=== PATIENT | female | born 1950 | race Caucasian/White ===

== ENCOUNTER 2020-06-17 10:58 | Outpatient (REF) | payer MEDICARE, SELFPAY ==
[2020-06-17 14:23] LABS: Glucose Urine UA NEG (NEG); Leukocyte Esterase Urine 2+ (NEG); Nitrite Urine NEG (NEG); Specific Gravity - Urine 1.015 (1.005-1.025); Urine Blood 1+ (NEG); Urine Ketones NEG (NEG); Urine Protein TRACE MG/DL (NEG-TRACE)
[2020-06-17 14:30] LABS: Appearance Urine CLOUDY; Color Urine YELLOW
[2020-06-17 15:04] LABS: Bacteria Urine 3+ /LPF; Squamous Epithelial Cell Urine TRACE /LPF; WBC Urine 50-75 /HPF (0-4)
== END 2020-06-17 10:59 | disposition home or self-care (01) ==
LOC: HO.HMGCLDS 10:58
PROVIDERS: PCP Internal Medicine; Visit Provider Internal Medicine
DX: R82.90 Unspecified abnormal findings in urine (principal)
CPT/HCPCS: 81001; 87086; 87088; 87186

== ENCOUNTER 2020-09-26 09:40 | Outpatient (REF) | payer MEDICARE, SELFPAY ==
[2020-09-26 12:01] LABS: Glucose Urine UA NEG (NEG); Leukocyte Esterase Urine NEG (NEG); Nitrite Urine NEG (NEG); PH 5.5 (5.0-8.0); Urine Blood NEG (NEG); Urine Ketones NEG (NEG); Urine Protein NEG (NEG-TRACE)
[2020-09-26 12:03] LABS: Appearance Urine CLEAR; Color Urine YELLOW
== END 2020-09-26 09:41 | disposition home or self-care (01) ==
LOC: HO.HMGCLNP 09:40
PROVIDERS: Visit Provider Internal Medicine
DX: R82.90 Unspecified abnormal findings in urine (principal)
CPT/HCPCS: 81003; 87086

== ENCOUNTER 2020-10-02 08:19 | Outpatient (REF) | payer MEDICARE, SELFPAY ==
[2020-10-02 11:54] LABS: Alanine Aminotransferase 18 U/L (0-31); Albumin Level 4.4 g/dL (3.5-5.0); Alkaline Phosphatase 52 U/L (39-117); Anion Gap 12 (12-20); Aspartate Amino Transferase 23 U/L (5-31); Bilirubin Total 0.5 mg/dL (0.0-1.0); Blood Urea Nitrogen 16 mg/dL (9-16); Calcium 9.3 mg/dL (8.4-10.2); Carbon Dioxide 30 mmol/L (22-29); Chloride 106 mmol/L (96-108); Estimated Glomerular Filt Rate > 60; Glucose Fasting 87 mg/dL (60-99); Potassium 4.8 mmol/l (3.3-5.1); Sodium 143 mmol/L (135-145); Total Protein 6.7 g/dL (6.5-8.0)
[2020-10-02 12:16] LABS: Vitamin D 25-OH Total 37.7 ng/mL (>30)
== END 2020-10-02 08:20 | disposition home or self-care (01) ==
LOC: HO.HMGCLDS 08:19
PROVIDERS: PCP Internal Medicine; Visit Provider Internal Medicine
DX: E78.5 Hyperlipidemia, unspecified (principal); F32.9 Major depressive disorder, single episode, unspecified; M81.0 Age-related osteoporosis without current pathological fracture; I10 Essential (primary) hypertension
CPT/HCPCS: 36415; 80053; 82306

== ENCOUNTER 2020-10-09 08:37 | Outpatient (REF) | payer MEDICARE, SELFPAY ==
[2020-10-09 10:13] LABS: Blood Urea Nitrogen 21 mg/dL (9-16); Estimated Glomerular Filt Rate > 60
== END 2020-10-09 08:38 | disposition home or self-care (01) ==
LOC: HO.LAB 08:37
PROVIDERS: PCP Internal Medicine; Visit Provider Internal Medicine
DX: I10 Essential (primary) hypertension (principal)
CPT/HCPCS: 36415; 82565; 84520

== ENCOUNTER 2020-10-17 08:48 | Outpatient (REF) | payer MEDICARE, SELFPAY | END 2020-10-17 08:49 | disposition home or self-care (01) | LOC: HO.MDS 08:48 | PROVIDERS: PCP Internal Medicine; Visit Provider Internal Medicine | DX: M81.0 Age-related osteoporosis without current pathological fracture (principal) | CPT/HCPCS: 96365; J3489 ==

== ENCOUNTER 2021-01-24 06:35 | Outpatient (REF) | payer MEDICARE, SELFPAY ==
[2021-01-24 11:24] LABS: Hematocrit 41.7 % (37-47); Hemoglobin 13.4 g/dl (12.0-16.0); Mean Corpuscular HGB Conc 32.1 g/dl (31.0-35.0); Mean Corpuscular Volume 99.5 fL (80-98); Mean Platelet Volume 12.2 fL (9.4-12.3); Platelet Count 184 X10*3/uL (160-400); Red Blood Count 4.19 X10*6/uL (4.20-5.50); Red Cell Distribution Width 12.7 % (11.0-16.0); White Blood Count 5.7 X10*3/uL (4.8-10.8)
[2021-01-24 11:51] LABS: Alanine Aminotransferase 24 U/L (0-31); Albumin Level 4.2 g/dL (3.5-5.0); Alkaline Phosphatase 42 U/L (39-117); Anion Gap 12 (12-20); Aspartate Amino Transferase 27 U/L (5-31); Bilirubin Total 0.3 mg/dL (0.0-1.0); Blood Urea Nitrogen 16 mg/dL (9-16); Calcium 9.2 mg/dL (8.4-10.2); Carbon Dioxide 28 mmol/L (22-29); Chloride 106 mmol/L (96-108); Cholesterol 192 mg/dL; Estimated Glomerular Filt Rate > 60; Glucose Fasting 95 mg/dL (60-99); HDL Cholesterol 64 mg/dL; LDL Cholesterol Calculated 114 mg/dl; Potassium 4.7 mmol/L (3.3-5.1); Sodium 141 mmol/L (135-145); Total Protein 6.7 g/dL (6.5-8.0); Triglycerides 73 mg/dL
== END 2021-01-24 06:36 | disposition home or self-care (01) ==
LOC: HO.HMGCLDS 06:35
PROVIDERS: PCP Internal Medicine; Visit Provider Internal Medicine
DX: E78.5 Hyperlipidemia, unspecified (principal); I10 Essential (primary) hypertension; M81.0 Age-related osteoporosis without current pathological fracture
CPT/HCPCS: 36415; 80053; 80061; 85027

== ENCOUNTER 2021-06-11 08:42 | Outpatient (REF) | payer MEDICARE, SELFPAY ==
[2021-06-11 11:09] LABS: Appearance Urine CLOUDY; Color Urine YELLOW; Glucose Urine UA NEG (NEG); Leukocyte Esterase Urine 3+ (NEG); Nitrite Urine POS (NEG); Specific Gravity - Urine 1.015 (1.005-1.025); UACC Culture Trigger YES; Urine Blood 1+ (NEG); Urine Ketones NEG (NEG); Urine Protein TRACE MG/DL (NEG-TRACE)
[2021-06-11 11:24] LABS: Bacteria Urine 1+ /LPF; Squamous Epithelial Cell Urine TRACE /LPF; WBC Urine TNTC /HPF (0-4)
== END 2021-06-11 08:43 | disposition home or self-care (01) ==
LOC: HO.HMGCLDS 08:42
PROVIDERS: PCP Internal Medicine; Visit Provider Internal Medicine
DX: Z13.89 Encounter for screening for other disorder (principal)
CPT/HCPCS: 81001; 87086; 87088; 87186

== ENCOUNTER 2021-06-13 06:47 | Outpatient (REF) | payer MEDICARE, SELFPAY ==
[2021-06-13 11:24] LABS: Alanine Aminotransferase 24 U/L (0-31); Albumin Level 4.5 g/dL (3.5-5.0); Alkaline Phosphatase 46 U/L (39-117); Anion Gap 11 (12-20); Aspartate Amino Transferase 23 U/L (5-31); Bilirubin Total 0.4 mg/dL (0.0-1.0); Blood Urea Nitrogen 13 mg/dL (9-16); Calcium 9.5 mg/dL (8.4-10.2); Carbon Dioxide 29 mmol/L (22-29); Chloride 103 mmol/L (96-108); Cholesterol 179 mg/dL; Estimated Glomerular Filt Rate > 60; Glucose Fasting 101 mg/dL (60-99); HDL Cholesterol 60 mg/dL; LDL Cholesterol Calculated 102 mg/dl; Potassium 4.7 mmol/L (3.3-5.1); Sodium 138 mmol/L (135-145); Triglycerides 89 mg/dL
[2021-06-13 11:46] LABS: Vitamin D 25-OH Total 40.9 ng/mL (>30)
== END 2021-06-13 06:48 | disposition home or self-care (01) ==
LOC: HO.HMGCLDS 06:47
PROVIDERS: PCP Internal Medicine; Visit Provider Internal Medicine
DX: E78.5 Hyperlipidemia, unspecified (principal); M81.0 Age-related osteoporosis without current pathological fracture; I10 Essential (primary) hypertension; E55.9 Vitamin D deficiency, unspecified
CPT/HCPCS: 36415; 80053; 80061; 82306

== ENCOUNTER 2021-10-07 07:58 | Outpatient (REF) | payer MEDICARE, SELFPAY ==
--- NOTE | ~2021-10-07 | MM_ITS ---
EXAMINATION: BONE DENSITOMETRY CLINICAL INDICATION: Osteoporosis. COMPARISON: Baseline BD dated 10/05/2019. TECHNIQUE: Using a [employer] DXA System (software version: 13.1) manufactured by [employer], dual-energy x-ray absorptiometry was performed of the left hip and left forearm radius 33%. The images are of good technical quality. Summary results are attached. FINDINGS: LEFT FEMUR, NECK: Current: BMD 0.663 g/cm2, Z-score -1.0, T-score -2.7, osteoporosis. Baseline: BMD 0.537 g/cm2. LEFT FEMUR, TOTAL: Current: BMD 0.692 g/cm2, Z-score -1.0, T-score -2.5, osteoporosis, 27.2% increase from baseline (<5% change is not significant). Baseline: BMD 0.544 g/cm2. LEFT FOREARM RADIUS 33%: BMD 0.745 g/cm2, Z-score 0.5, T-score -1.5, osteopenia, 20.6% increase from baseline (<5% change is not significant). Baseline: BMD 0.618 g/cm2. IDENTIFIED RISK FACTORS: Menopause, height loss, hysterectomy, bilateral oophorectomy, anticonvulsant, osteoporosis. HISTORY OF FRACTURE: None listed. MEDICATIONS: Calcium, vitamin D. MM/XR DEXA axial skeleton IMPRESSION: 1. DIAGNOSIS: Osteoporosis based on the lowest T-score value of -2.7 in the femoral neck applying World Health Organization criteria. 2. 10-YEAR FRACTURE RISK PREDICTION, FRAX: According to the guidelines, FRAX calculation should only be performed on patients in the osteopenia bone density category. Therefore, FRAX was not performed on this patient. 3. Treatment Recommendations: NOF guidelines recommend consideration for treatment in postmenopausal women and men age 50 and older presenting with the following: -A hip or vertebral (clinical or morphometric) fracture. -T-score less than or equal to -2.5 at the femoral neck or spine after appropriate evaluation to exclude secondary causes. -Low bone mass at the hip or spine and a 10-year fracture probability by FRAX of greater than or equal to 3% for hip fracture or greater than or equal to 20% for major osteoporotic fracture based on the [place] adapted WHO algorithm. 4. Other Recommendations: All treatment decisions require clinical judgment and consideration of individual patient factors, including patient preferences, comorbidities, previous drug use, risk factors not captured in the FRAX model (e.g. frailty, falls, vitamin D deficiency, increased bone turnover, interval significant decline in bone density) and possible under or overestimation of fracture risk by FRAX. Additional medical evaluation for secondary cause of low bone mineral density may be appropriate. FUTURE SCAN RECOMMENDATION: People with diagnosed cases of osteoporosis or at high risk for fracture should have regular bone mineral density tests. For patients eligible for Medicare, routine testing is allowed once every 2 years. The testing frequency can be increased to one year for patients who have rapidly progressing disease, those who are receiving or discontinuing medical therapy to restore bone mass, or have additional risk factors.
== END 2021-10-07 07:59 | disposition home or self-care (01) ==
LOC: HO.MAMMO 07:58
PROVIDERS: PCP Internal Medicine; Visit Provider Internal Medicine
DX: M81.0 Age-related osteoporosis without current pathological fracture (principal); E78.5 Hyperlipidemia, unspecified; I10 Essential (primary) hypertension
CPT/HCPCS: 77080

== ENCOUNTER 2021-11-05 06:19 | Outpatient (REF) | payer MEDICARE, SELFPAY ==
[2021-11-05 11:22] LABS: Hematocrit 39.8 % (37.0-47.0); Hemoglobin 12.8 g/dl (12.0-16.0); Mean Corpuscular HGB Conc 32.2 g/dl (31.0-35.0); Mean Corpuscular Hemoglobin 33.1 pg (27.0-33.0); Mean Corpuscular Volume 102.8 fL (80.0-98.0); Platelet Count 176 X10*3/uL (160-400); Red Blood Count 3.87 X10*6/uL (4.20-5.50); Red Cell Distribution Width 12.4 % (11.0-16.0); White Blood Count 5.3 X10*3/uL (4.8-10.8)
[2021-11-05 11:40] LABS: Alanine Aminotransferase 28 U/L (0-31); Albumin Level 4.1 g/dL (3.5-5.0); Alkaline Phosphatase 39 U/L (39-117); Anion Gap 11 (12-20); Aspartate Amino Transferase 25 U/L (5-31); Bilirubin Total 0.6 mg/dL (0.0-1.0); Blood Urea Nitrogen 11 mg/dL (9-16); Calcium 9.2 mg/dL (8.4-10.2); Carbon Dioxide 28 mmol/L (22-29); Chloride 107 mmol/L (96-108); Cholesterol 189 mg/dL; Estimated Glomerular Filt Rate > 60; Glucose Fasting 102 mg/dL (60-99); HDL Cholesterol 71 mg/dL; LDL Cholesterol Calculated 105 mg/dl; Potassium 4.6 mmol/L (3.3-5.1); Sodium 141 mmol/L (135-145); Total Protein 6.4 g/dL (6.5-8.0); Triglycerides 66 mg/dL
[2021-11-05 11:48] LABS: Vitamin D 25-OH Total 34.5 ng/mL (>30)
== END 2021-11-05 06:20 | disposition home or self-care (01) ==
LOC: HO.HMGCLDS 06:19
PROVIDERS: Visit Provider Internal Medicine
DX: Z00.00 Encounter for general adult medical examination without abnormal findings (principal); M81.0 Age-related osteoporosis without current pathological fracture; E78.5 Hyperlipidemia, unspecified; I10 Essential (primary) hypertension
CPT/HCPCS: 36415; 80053; 80061; 82306; 85027

== ENCOUNTER 2021-11-20 07:40 | Outpatient (REF) | payer MEDICARE, SELFPAY ==
[2021-11-20 11:46] LABS: Blood Urea Nitrogen 12 mg/dL (9-16); Estimated Glomerular Filt Rate > 60
== END 2021-11-20 07:41 | disposition home or self-care (01) ==
LOC: HO.HMGCLDS 07:40
PROVIDERS: Visit Provider Internal Medicine
DX: M81.0 Age-related osteoporosis without current pathological fracture (principal)
CPT/HCPCS: 36415; 82565; 84520

== ENCOUNTER 2021-11-23 08:54 | Outpatient (REF) | payer MEDICARE, SELFPAY | END 2021-11-23 08:55 | disposition home or self-care (01) | LOC: HO.MDS 08:54 | PROVIDERS: PCP Internal Medicine; Visit Provider Internal Medicine | DX: M81.0 Age-related osteoporosis without current pathological fracture (principal) | CPT/HCPCS: 96365; J3489 ==

== ENCOUNTER 2022-04-10 06:34 | Outpatient (REF) | payer MEDICARE, SELFPAY ==
[2022-04-10 11:13] LABS: Hematocrit 39.9 % (37.0-47.0); Hemoglobin 13.2 g/dl (12.0-16.0); Mean Corpuscular HGB Conc 33.1 g/dl (31.0-35.0); Mean Corpuscular Hemoglobin 32.7 pg (27.0-33.0); Mean Corpuscular Volume 98.8 fL (80.0-98.0); Mean Platelet Volume 11.9 fL (9.4-12.3); Platelet Count 216 X10*3/uL (160-400); Red Blood Count 4.04 X10*6/uL (4.20-5.50); Red Cell Distribution Width 12.2 % (11.0-16.0); White Blood Count 5.2 X10*3/uL (4.8-10.8)
[2022-04-10 11:15] LABS: Appearance Urine CLEAR; Color Urine YELLOW; Glucose Urine UA NEG (NEG); Leukocyte Esterase Urine NEG (NEG); Nitrite Urine NEG (NEG); PH 6.5 (5.0-8.0); Specific Gravity - Urine <= 1.005 (1.005-1.025); Urine Blood NEG (NEG); Urine Ketones NEG (NEG); Urine Protein NEG (NEG-TRACE)
[2022-04-10 11:23] LABS: Alanine Aminotransferase 24 U/L (0-31); Albumin Level 4.3 g/dL (3.5-5.0); Alkaline Phosphatase 34 U/L (39-117); Anion Gap 12 (12-20); Aspartate Amino Transferase 25 U/L (5-31); Bilirubin Total 0.4 mg/dL (0.0-1.0); Blood Urea Nitrogen 13 mg/dL (9-16); Calcium 9.2 mg/dL (8.4-10.2); Carbon Dioxide 29 mmol/L (22-29); Chloride 100 mmol/L (96-108); Cholesterol 192 mg/dL; Estimated Glomerular Filt Rate > 60; Glucose Fasting 97 mg/dL (60-99); HDL Cholesterol 69 mg/dL; LDL Cholesterol Calculated 113 mg/dl; Potassium 4.6 mmol/L (3.3-5.1); Sodium 136 mmol/L (135-145); Total Protein 6.7 g/dL (6.5-8.0); Triglycerides 54 mg/dL
[2022-04-10 11:42] LABS: RBC Urine 0 /HPF (0); Squamous Epithelial Cell Urine 2+ /LPF; WBC Urine 0-2 /HPF (0-4)
[2022-04-10 11:46] LABS: TSH reflex Free T4 0.69 uIU/mL (0.32-4.0); Vitamin D 25-OH Total 45.4 ng/mL (>30)
[2022-04-12 07:40] LABS: Folate 18.3 ng/mL (> or = 4.0); Vitamin B12 1676 pg/mL (200-900)
== END 2022-04-10 06:35 | disposition home or self-care (01) ==
LOC: HO.HMGCLDS 06:34
PROVIDERS: PCP Internal Medicine; Visit Provider Internal Medicine
DX: Z00.00 Encounter for general adult medical examination without abnormal findings (principal); E78.5 Hyperlipidemia, unspecified; I10 Essential (primary) hypertension; M81.0 Age-related osteoporosis without current pathological fracture; E55.9 Vitamin D deficiency, unspecified
CPT/HCPCS: 36415; 80053; 80061; 81001; 82306; 82607; 82746; 84443; 85027

== ENCOUNTER 2022-08-09 08:02 | Outpatient (REF) | payer MEDICARE, SELFPAY ==
[2022-08-09 11:47] LABS: Anion Gap 13 (12-20); Blood Urea Nitrogen 16 mg/dL (9-16); Calcium 9.3 mg/dL (8.4-10.2); Carbon Dioxide 28 mmol/L (22-29); Chloride 103 mmol/L (96-108); Estimated Glomerular Filt Rate > 60; Glucose Random 88 mg/dL (60-115); Potassium 4.6 mmol/L (3.3-5.1); Sodium 139 mmol/L (135-145)
== END 2022-08-09 08:03 | disposition home or self-care (01) ==
LOC: HO.HMGCLDS 08:02
PROVIDERS: PCP Internal Medicine; Visit Provider Internal Medicine
DX: I10 Essential (primary) hypertension (principal)
CPT/HCPCS: 36415; 80048

== ENCOUNTER 2022-08-27 08:03 | Outpatient (REF) | payer MEDICARE, SELFPAY ==
[2022-08-27 11:38] LABS: Anion Gap 13 (12-20); Blood Urea Nitrogen 20 mg/dL (9-16); Calcium 9.7 mg/dL (8.4-10.2); Carbon Dioxide 29 mmol/L (22-29); Chloride 104 mmol/L (96-108); Estimated Glomerular Filt Rate > 60; Glucose Random 86 mg/dL (60-115); Potassium 4.8 mmol/L (3.3-5.1); Sodium 141 mmol/L (135-145)
[2022-08-27 12:16] LABS: Folate 17.4 ng/mL (> or = 4.0); Vitamin B12 1939 pg/mL (200-900)
== END 2022-08-27 08:04 | disposition home or self-care (01) ==
LOC: HO.HMGCLDS 08:03
PROVIDERS: PCP Internal Medicine; Visit Provider Internal Medicine
DX: I10 Essential (primary) hypertension (principal)
CPT/HCPCS: 36415; 80048; 82607; 82746

== ENCOUNTER 2022-10-15 06:35 | Outpatient (REF) | payer MEDICARE, SELFPAY ==
[2022-10-15 12:09] LABS: Anion Gap 15 (12-20); Blood Urea Nitrogen 12 mg/dL (9-16); Calcium 9.3 mg/dL (8.4-10.2); Carbon Dioxide 27 mmol/L (22-29); Chloride 104 mmol/L (96-108); Estimated Glomerular Filt Rate > 60; Glucose Random 105 mg/dL (60-115); Potassium 4.6 mmol/L (3.3-5.1); Sodium 141 mmol/L (135-145)
== END 2022-10-15 06:36 | disposition home or self-care (01) ==
LOC: HO.HMGCLDS 06:35
PROVIDERS: PCP Internal Medicine; Visit Provider Internal Medicine
DX: I10 Essential (primary) hypertension (principal)
CPT/HCPCS: 36415; 80048

== ENCOUNTER 2022-11-12 08:01 | Outpatient (REF) | payer MEDICARE, SELFPAY ==
[2022-11-12 12:20] LABS: Blood Urea Nitrogen 18 mg/dL (9-16); Calcium 9.8 mg/dL (8.4-10.2); Estimated Glomerular Filt Rate > 60
[2022-11-12 12:40] LABS: Vitamin D 25-OH Total 38.9 ng/mL (>30)
== END 2022-11-12 08:02 | disposition home or self-care (01) ==
LOC: HO.HMGCLDS 08:01
PROVIDERS: PCP Internal Medicine; Visit Provider Internal Medicine
DX: M81.0 Age-related osteoporosis without current pathological fracture (principal)
CPT/HCPCS: 36415; 82306; 82310; 82565; 84520

== ENCOUNTER 2022-11-18 08:24 | Outpatient (REF) | payer MEDICARE, SELFPAY | END 2022-11-18 08:25 | disposition home or self-care (01) | LOC: HO.MDS 08:24 | PROVIDERS: Visit Provider Internal Medicine | DX: M81.0 Age-related osteoporosis without current pathological fracture (principal) | CPT/HCPCS: 96365; J3489 ==

== ENCOUNTER 2023-01-21 07:48 | Outpatient (REF) | payer MEDICARE, SELFPAY ==
[2023-01-21 12:17] LABS: Anion Gap 10 (12-20); Blood Urea Nitrogen 16 mg/dL (9-16); Calcium 9.5 mg/dL (8.4-10.2); Carbon Dioxide 30 mmol/L (22-29); Chloride 106 mmol/L (96-108); Estimated Glomerular Filt Rate > 60; Glucose Random 98 mg/dL (60-115); Potassium 4.8 mmol/L (3.3-5.1); Sodium 141 mmol/L (135-145)
== END 2023-01-21 07:49 | disposition home or self-care (01) ==
LOC: HO.HMGCLDS 07:48
PROVIDERS: PCP Internal Medicine; Visit Provider Internal Medicine
DX: I10 Essential (primary) hypertension (principal)
CPT/HCPCS: 36415; 80048

== ENCOUNTER 2023-02-03 12:58 | Outpatient (REF) | payer MEDICARE, SELFPAY ==
--- NOTE | ~2023-02-03 | XR_ITS ---
EXAMINATION: XR FINGER, RIGHT CLINICAL INFORMATION: Finger pain. COMPARISON: None available. TECHNIQUE: The views of the right hand digits were obtained. FINDINGS: Severe second distal interphalangeal degenerative joint changes are seen with hypertrophic changes and adjacent calcifications. Mild interphalangeal degenerative joint changes are seen in the remainder of the digits most pronounced in the distal interphalangeal joints of the fourth and fifth digits. There is no acute fracture or dislocation. Mild soft tissue swelling is seen in the second digit. XR/XR finger RT min 2V IMPRESSION: Degenerative joint changes most consistent with osteoarthritis, most pronounced in the second digit as detailed above. No definitive acute abnormality.
--- NOTE | ~2023-02-03 | XR_ITS ---
EXAMINATION: XR WRIST, RIGHT CLINICAL INFORMATION: Right wrist pain. COMPARISON: None available. TECHNIQUE: PA, lateral, and oblique views of the right wrist. An indicator arrow points to the lateral wrist. FINDINGS: Severe right first carpometacarpal degenerative joint changes are seen. The trapezium is not visualized. Erosive changes are seen along the proximal articular surface of the first metacarpal. Concave erosive changes are seen along the distal margin of the scaphoid and proximal, radial margin of the second metacarpal. The carpal bones are otherwise normally aligned. The distal radius and ulna are intact. XR/XR wrist RT min 3V IMPRESSION: Severe right lateral wrist degenerative joint changes. Erosive changes are nonspecific, but can be seen with erosive osteoarthritis and gout. Correlate with patient history.
== END 2023-02-03 12:59 | disposition home or self-care (01) ==
LOC: HO.HMGCX 12:58
PROVIDERS: PCP Internal Medicine; Visit Provider Nurse Practitioner Family
DX: M79.89 Other specified soft tissue disorders (principal); M79.644 Pain in right finger(s); M25.531 Pain in right wrist
CPT/HCPCS: 73110; 73140

== ENCOUNTER → 2023-02-08 08:51 | Outpatient (BNVA) | payer MEDICARE, SELFPAY | PROVIDERS: PCP Internal Medicine; Visit Provider Orthopaedic Surgery | DX: M18.11 Unilateral primary osteoarthritis of first carpometacarpal joint, right hand (principal); M79.89 Other specified soft tissue disorders | CPT/HCPCS: 99202 ==

== ENCOUNTER 2023-04-28 08:14 | Outpatient (AMB) | payer MEDICARE, SELFPAY ==
[2023-04-28 08:18] VITALS: BP 124/74; PULSE 56; O2SAT 95; BMI 24.8
--- NOTE | 2023-04-28 08:18 | MHC.PC.OV ---
Vital Signs 04/28/23 08:18 Height 5 ft 5 in Weight 149 lb BMI 24.8 BP 124/74 Blood Pressure Location Lt brachial Position Sitting Pulse 56 Pulse Source Pulse Oximeter Pulse Oximetry (%) 95 Oxygen Delivery Method Room Air Intake Visit Reasons: 6 Month follow up HTN Intake Note: Pt is here today for 6 months follow up visit on HTN. Allergies amitriptyline Allergy (Unknown, Verified 04/28/23 08:21) increased heart rate, SOB budesonide [Rhinocort Allergy] Allergy (Unknown, Verified 04/28/23 08:21) swelling redness of the nose fentanyl Allergy (Unknown, Verified 04/28/23 08:21) itchy imipramine [From Tofranil] Allergy (Unknown, Verified 04/28/23 08:21) Hives oxycodone Allergy (Unknown, Verified 04/28/23 08:21) itchy tapentadol Allergy (Unknown, Verified 04/28/23 08:21) Unknown hydrochlorothiazide Adverse Reaction (Intermediate, Verified 04/28/23 08:21) Confusion alendronate sodium [Fosamax] Adverse Reaction (Unknown, Verified 04/28/23 08:21) Abdominal Pain duloxetine Adverse Reaction (Unknown, Verified 04/28/23 08:21) insomnia and hedache pregabalin Adverse Reaction (Unknown, Verified 04/28/23 08:21) waking tramadol [Ultram] Adverse Reaction (Unknown, Verified 04/28/23 08:21) auforia feeling amlodipine Adverse Reaction (Verified 04/28/23 08:21) tiredness and back pain Tobacco use date assessed: 12/20/22 Fall risk assessment: No Falls in past year Last assessed Fall Risk: 04/28/23 Dental Screening Dental Screen Date: 04/28/23 Did you have a dental visit in the last 12 months?: Yes Did you have a dental problem in the last 6 months where you did not have access to dental care?: No Was dental information given to patient?: Patient has dentist HPI 6 Month follow up HTN HPI Details Pt presents for f/u HTN, hyperlipid, stable on meds. Patient had 3 Reclast infusions for osteoporosis the most recent in November 2021. Patient has been taking vitamin-D 3 supplement and is due for repeat DEXA next October. She follows up with a hand surgeon at time for persistent right thumb pain and swelling. [facility] Medical History (Updated 04/28/23 @ 08:53 by Alison Christianson MD) Age related osteoporosis Annual physical exam Broken heart syndrome Cloudy urine Depression HTN (hypertension) Hyperlipidemia Multinodular goiter Osteopenia Vitamin D deficiency Surgical History H/O lumbosacral spine surgery No pertinent past surgical history S/P MARICARMEN (total abdominal hysterectomy) Family History Father HTN (hypertension) Mother No problems noted. Social History Housing: Apartment Alcohol intake: never Patient Tobacco Use Status: Former Tobacco user e-Cigarette/Vaping Use: Never Used Current occupational status: retired and disabled Cognitive needs: No Hearing needs: No Vision needs: Yes Questionnaire Thrive Questionnaire Date Thrive assessed: 09/17/22 AUDIT C Alcohol Use Questionnaire (AUDIT-C) 1. How often do you have a drink containing alcohol?: Never 3. How often do you have six or more drinks on one occasion?: Never Total Score: 0 MAEVE-7 AMB Questionnaire MAEVE-7 Date MAEVE - 7 assessed: 09/17/22 Source: Developed by Drs. Krish Garcia, Aysha Werner, Carlos Broussard and colleagues, with an educational cory from [employer]. Review of Systems Const All systems reviewed & are unremarkable except as noted in HPI and below Reports no additional complaints Eyes Reports no additional complaints ENT Reports no additional complaints Card Reports no additional complaints Resp Reports no additional complaints GI Reports no additional complaints Physical exam (Primary Care) Vital Signs: Last Vital Signs Pulse 56 04/28/23 08:18 BP 124/74 04/28/23 08:18 Pulse Ox 95 04/28/23 08:18 Oxygen Delivery Method Room Air 04/28/23 08:18 BMI result Body Mass Index 24.8 Tobacco/Smoking Status: Tobacco use Status Tobacco use date assessed 12/20/22 04/28/23 08:19 Patient Tobacco Use Status Former Tobacco user 04/28/23 08:19 e-Cigarette/Vaping Use Never Used 04/28/23 08:19 Thrive Assessment: Date of Thrive Assessment Date Thrive assessed 09/17/22 04/28/23 08:19 Const General: no acute distress Neck Neck: Yes supple Resp Effort & Inspection: normal respiratory effort Auscultation: clear to auscultation bilaterally Cardio Rhythm: regular rhythm Heart sounds: S1 normal heart sound present and S2 normal heart sound present Assessment and Plan Assessment & Plan (1) Age related osteoporosis: Comment: DEXA osteporosis 09/2019, s/p 2 RECLAST infusions 09/2019, 09/2020, DEXA 20 % improvement , 3rd infusion 11/2021, due for DEXA in 10/29 Code(s): M81.0 - Age-related osteoporosis without current pathological fracture Plan: Continue vitamin D supplement (2) Vitamin D deficiency: Code(s): E55.9 - Vitamin D deficiency, unspecified (3) HTN (hypertension): Comment: Patient follows up with [facility] Cardiology Code(s): I10 - Essential (primary) hypertension Plan: Continue current medications (4) Hyperlipidemia: Code(s): E78.5 - Hyperlipidemia, unspecified Plan: Continue statin, return in 6 months for physical and follow-up Orders: Orders XR DEXA axial skeleton 6 Months M81.0 - Age-related osteoporosis without current pathological fracture Comprehensive [place]. Panel Fast Today E55.9 - Vitamin D deficiency, unspecified, E78.5 - Hyperlipidemia, unspecified, I10 - Essential (primary) hypertension, M81.0 - Age-related osteoporosis without current pathological fracture Lipid Panel Today E55.9 - Vitamin D deficiency, unspecified, E78.5 - Hyperlipidemia, unspecified, I10 - Essential (primary) hypertension, M81.0 - Age-related osteoporosis without current pathological fracture TSH reflex Free T4 Today E55.9 - Vitamin D deficiency, unspecified, E78.5 - Hyperlipidemia, unspecified, I10 - Essential (primary) hypertension, M81.0 - Age-related osteoporosis without current pathological fracture Vitamin D 25-OH Total Today E55.9 - Vitamin D deficiency, unspecified, E78.5 - Hyperlipidemia, unspecified, I10 - Essential (primary) hypertension, M81.0 - Age-related osteoporosis without current pathological fracture Complete Blood Count Auto Diff Today E55.9 - Vitamin D deficiency, unspecified, E78.5 - Hyperlipidemia, unspecified, I10 - Essential (primary) hypertension, M81.0 - Age-related osteoporosis without current pathological fracture Coding Level of Care Code Est Pt Level 4 (34372) Diagnoses Age related osteoporosis M81.0 Vitamin D deficiency E55.9 HTN (hypertension) I10 Hyperlipidemia E78.5
== END 2023-04-28 08:57 | disposition home or self-care (01) ==
PROVIDERS: Visit Provider Internal Medicine
DX: M81.0 Age-related osteoporosis without current pathological fracture (principal); E55.9 Vitamin D deficiency, unspecified; I10 Essential (primary) hypertension; E78.5 Hyperlipidemia, unspecified
CPT/HCPCS: 99214

== ENCOUNTER 2023-04-29 06:10 | Outpatient (REF) | payer MEDICARE, SELFPAY ==
[2023-04-29 11:07] LABS: MANUAL DIFF FLAG NO
[2023-04-29 11:29] LABS: Basophils Percent Auto 0.3 % (0-2); Eosinophils Absolute Auto 0.1 X10*3/uL (0.0-0.4); Eosinophils Percent Auto 1.2 % (0-4); Hematocrit 41.8 % (37.0-47.0); Hemoglobin 13.5 g/dl (12.0-16.0); Imm Gran Abs Auto 0.01 X10*3/uL (0.00-0.03); Imm Gran Pct Auto 0.2 % (0.0-0.4); Lymphocytes Absolute Auto 2.7 X10*3/uL (1.2-4.9); Lymphocytes Percent Auto 47.3 % (20-40); Mean Corpuscular HGB Conc 32.3 g/dl (31.0-35.0); Mean Corpuscular Hemoglobin 31.9 pg (27.0-33.0); Mean Corpuscular Volume 98.8 fL (80.0-98.0); Mean Platelet Volume 11.4 fL (9.4-12.3); Monocytes Absolute Auto 0.5 X10*3/uL (0.1-1.2); Monocytes Percent Auto 7.9 % (2-11); Neutrophils Absolute Auto 2.5 x10*3/uL (2.0-8.3); Neutrophils Percent Auto 43.1 % (45-73); Platelet Count 221 X10*3/uL (160-400); Red Blood Count 4.23 X10*6/uL (4.20-5.50); White Blood Count 5.8 X10*3/uL (4.8-10.8)
[2023-04-29 12:47] LABS: Alanine Aminotransferase 20 U/L (0-31); Albumin Level 4.6 g/dL (3.5-5.0); Alkaline Phosphatase 39 U/L (39-117); Anion Gap 13 (12-20); Aspartate Amino Transferase 27 U/L (5-31); Bilirubin Total 0.6 mg/dL (0.0-1.0); Blood Urea Nitrogen 20 mg/dL (9-16); Calcium 9.7 mg/dL (8.4-10.2); Carbon Dioxide 26 mmol/L (22-29); Chloride 106 mmol/L (96-108); Cholesterol 203 mg/dL (<200); Estimated Glomerular Filt Rate > 60; Glucose Fasting 104 mg/dL (60-99); HDL Cholesterol 76 mg/dL (>40); LDL Cholesterol Calculated 111 mg/dL (<100); Potassium 4.4 mmol/L (3.3-5.1); Sodium 141 mmol/L (135-145); Total Protein 7.5 g/dL (6.5-8.0); Triglycerides 84 mg/dL (<150)
[2023-04-29 13:05] LABS: TSH reflex Free T4 1.74 uIU/mL (0.32-4.0); Vitamin D 25-OH Total 63.9 ng/mL (>30)
== END 2023-04-29 06:11 | disposition home or self-care (01) ==
LOC: HO.HMGCLDS 06:10
PROVIDERS: PCP Internal Medicine; Visit Provider Internal Medicine
DX: E55.9 Vitamin D deficiency, unspecified (principal); I10 Essential (primary) hypertension; M81.0 Age-related osteoporosis without current pathological fracture; E78.5 Hyperlipidemia, unspecified
CPT/HCPCS: 36415; 80053; 80061; 82306; 84443; 85025

== ENCOUNTER 2023-06-16 09:15 | Outpatient (AMB) | payer MEDICARE, SELFPAY ==
[2023-06-16 09:18] VITALS: BP 128/74; PULSE 59; O2SAT 98; BMI 24.3
--- NOTE | 2023-06-16 09:18 | A.OFFPC_ITS ---
Vital Signs 06/16/23 09:18 Height 5 ft 5 in Weight 146 lb BMI 24.3 BP 128/74 Blood Pressure Location Lt brachial Position Sitting Pulse 59 Pulse Source Pulse Oximeter Pulse Oximetry (%) 98 Oxygen Delivery Method Room Air Intake Visit Reasons: pre op surgery on 06/28/23 Intake Note: Pt is here today for a pre op visit. Pt is having surgery for open decompression and fusion on 06/28/23. Allergies amitriptyline Allergy (Unknown, Verified 06/16/23 09:21) increased heart rate, SOB budesonide [Rhinocort Allergy] Allergy (Unknown, Verified 06/16/23 09:21) swelling redness of the nose fentanyl Allergy (Unknown, Verified 06/16/23 09:21) itchy imipramine [From Tofranil] Allergy (Unknown, Verified 06/16/23 09:21) Hives oxycodone Allergy (Unknown, Verified 06/16/23 09:21) itchy tapentadol Allergy (Unknown, Verified 06/16/23 09:21) Unknown hydrochlorothiazide Adverse Reaction (Intermediate, Verified 06/16/23 09:21) Confusion alendronate sodium [Fosamax] Adverse Reaction (Unknown, Verified 06/16/23 09:21) Abdominal Pain duloxetine Adverse Reaction (Unknown, Verified 06/16/23 09:21) insomnia and hedache pregabalin Adverse Reaction (Unknown, Verified 06/16/23 09:21) waking tramadol [Ultram] Adverse Reaction (Unknown, Verified 06/16/23 09:21) auforia feeling amlodipine Adverse Reaction (Verified 06/16/23 09:21) tiredness and back pain Medication List - Last Reconciled 06/16/23 by Alison Christianson MD aspirin 81 mg PO DAILY hydralazine 10 mg PO BID lisinopril 40 mg PO DAILY metoprolol succinate ER 50 mg PO BID simvastatin 40 mg PO BEDTIME trospium 20 mg PO DAILY venlafaxine ER 75 mg PO DAILY zoledronic [id number] 5 mg/100 mL (Reclast) 1 ea IV ONCE Tobacco use date assessed: 06/16/23 Fall risk assessment: No Falls in past year Last assessed Fall Risk: 06/16/23 Dental Screening Dental Screen Date: 06/16/23 Did you have a dental visit in the last 12 months?: Yes Did you have a dental problem in the last 6 months where you did not have access to dental care?: No Was dental information given to patient?: Patient has dentist HPI pre op surgery on 06/28/23 HPI Details Pt presents for pre op for L spine surgery. HTN and hyperlipid, are stable on meds. PFSH Medical History Age related osteoporosis Vitamin D deficiency Annual physical exam HTN (hypertension) Multinodular goiter Hyperlipidemia Osteopenia Broken heart syndrome Depression Cloudy urine Surgical History H/O lumbosacral spine surgery S/P MARICARMEN (total abdominal hysterectomy) No pertinent past surgical history Family History Father HTN (hypertension) Mother No problems noted. Social History Housing: Apartment Alcohol intake: never Patient Tobacco Use Status: Former Tobacco user e-Cigarette/Vaping Use: Never Used Current occupational status: retired and disabled Cognitive needs: No Hearing needs: No Vision needs: Yes Questionnaire Thrive Questionnaire Date Thrive assessed: 09/17/22 MAEVE-7 AMB Questionnaire MAEVE-7 Date MAEVE - 7 assessed: 09/17/22 Source: Developed by Drs. Krish Garcia, Aysha Werner, Carlos Broussard and colleagues, with an educational cory from [employer]. Review of Systems Const All systems reviewed & are unremarkable except as noted in HPI and below Reports no additional complaints Eyes Reports no additional complaints ENT Reports no additional complaints Card Reports no additional complaints Resp Reports no additional complaints GI Reports no additional complaints Reports no additional complaints Physical exam (Primary Care) Vital Signs: Last Vital Signs Pulse 59 06/16/23 09:18 BP 128/74 06/16/23 09:18 Pulse Ox 98 06/16/23 09:18 Oxygen Delivery Method Room Air 06/16/23 09:18 BMI result Body Mass Index 24.3 Tobacco/Smoking Status: Tobacco use Status Tobacco use date assessed 06/16/23 06/16/23 09:28 Patient Tobacco Use Status Former Tobacco user 06/16/23 09:28 e-Cigarette/Vaping Use Never Used 06/16/23 09:28 Thrive Assessment: Date of Thrive Assessment Date Thrive assessed 09/17/22 06/16/23 09:28 Const General: no acute distress HENMT Head: Yes normal to inspection General nose exam: Normal external nose present Mouth: Normal oral and palatal mucosa present Throat: Yes posterior oropharynx normal Eyes General: appearance normal, both eyes and all related structures Neck Neck: Yes no lymphadenopathy and Yes supple Resp Effort & Inspection: normal respiratory effort Auscultation: clear to auscultation bilaterally Cardio Rhythm: regular rhythm Heart sounds: S1 normal heart sound present and S2 normal heart sound present GI Inspection: Yes normal to inspection Palpation (GI): Soft to palpation Auscultation: normal bowel sounds Assessment and Plan Assessment & Plan (1) Hyperlipidemia: Code(s): E78.5 - Hyperlipidemia, unspecified Plan: cont statin (2) HTN (hypertension): Comment: Patient follows up with [facility] Cardiology Code(s): I10 - Essential (primary) hypertension Plan: cont meds (3) Annual physical exam: Code(s): Z00.00 - Encounter for general adult medical examination without abnormal findings (4) DJD (degenerative joint disease), lumbar: Code(s): M47.816 - Spondylosis without myelopathy or radiculopathy, lumbar region Plan: EKG showed NSR, rupesh, no ST-T changes, Pt will have labs today. Patient is medically cleared for surgery Orders: Orders Complete Blood Count Auto Diff Today E78.5 - Hyperlipidemia, unspecified, I10 - Essential (primary) hypertension, Z00.00 - Encounter for general adult medical examination without abnormal findings Prothrombin Time INR Today E78.5 - Hyperlipidemia, unspecified, I10 - Essential (primary) hypertension, Z00.00 - Encounter for general adult medical examination without abnormal findings Partial Thromboplastin Time Today E78.5 - Hyperlipidemia, unspecified, I10 - Essential (primary) hypertension, Z00.00 - Encounter for general adult medical examination without abnormal findings Basic Metabolic Panel Today E78.5 - Hyperlipidemia, unspecified, I10 - Essential (primary) hypertension, Z00.00 - Encounter for general adult medical examination without abnormal findings UA w Microscopic Today E78.5 - Hyperlipidemia, unspecified, I10 - Essential (primary) hypertension, Z00.00 - Encounter for general adult medical examination without abnormal findings Coding Level of Care Code Est Pt Level 4 (45181) Diagnoses Hyperlipidemia E78.5 HTN (hypertension) I10 Annual physical exam Z00.00 DJD (degenerative joint disease), lumbar M47.816
== END 2023-06-16 10:02 | disposition home or self-care (01) ==
PROVIDERS: PCP Internal Medicine; Visit Provider Internal Medicine
DX: E78.5 Hyperlipidemia, unspecified (principal); I10 Essential (primary) hypertension; Z00.00 Encounter for general adult medical examination without abnormal findings; M47.816 Spondylosis without myelopathy or radiculopathy, lumbar region
CPT/HCPCS: 99214

== ENCOUNTER 2023-06-16 09:57 | Outpatient (REF) | payer MEDICARE, SELFPAY ==
[2023-06-16 13:13] LABS: Appearance Urine Clear; Color Urine Yellow; Glucose Urine UA Negative (Negative); Leukocyte Esterase Urine Negative (Negative); Nitrite Urine Negative (Negative); Urine Blood Negative (Negative); Urine Ketones Negative (Negative); Urine Protein Negative (Neg-Trace)
[2023-06-16 13:19] LABS: Bacteria Urine None Seen (None Seen); Hyaline Casts Urine 0-2 /LPF (0-2); RBC Urine 0-2 /HPF (0-2); Squamous Epithelial Cell Urine 0-2 /HPF (0-2); WBC Urine 0-5 /HPF (0-5)
[2023-06-16 13:24] LABS: MANUAL DIFF FLAG NO
[2023-06-16 13:38] LABS: Basophils Percent Auto 0.5 % (0-2); Eosinophils Absolute Auto 0.1 X10*3/uL (0.0-0.4); Eosinophils Percent Auto 0.8 % (0-4); Hematocrit 42.1 % (37.0-47.0); Hemoglobin 13.3 g/dl (12.0-16.0); Imm Gran Abs Auto 0.01 X10*3/uL (0.00-0.03); Imm Gran Pct Auto 0.2 % (0.0-0.4); Lymphocytes Absolute Auto 2.9 X10*3/uL (1.2-4.9); Lymphocytes Percent Auto 46.1 % (20-40); Mean Corpuscular HGB Conc 31.6 g/dl (31.0-35.0); Mean Corpuscular Hemoglobin 31.9 pg (27.0-33.0); Mean Platelet Volume 11.6 fL (9.4-12.3); Monocytes Absolute Auto 0.4 X10*3/uL (0.1-1.2); Monocytes Percent Auto 6.9 % (2-11); Neutrophils Absolute Auto 2.8 x10*3/uL (2.0-8.3); Neutrophils Percent Auto 45.5 % (45-73); Platelet Count 212 X10*3/uL (160-400); Red Blood Count 4.17 X10*6/uL (4.20-5.50); Red Cell Distribution Width 12.9 % (11.0-16.0); White Blood Count 6.2 X10*3/uL (4.8-10.8)
[2023-06-16 13:59] LABS: INTERNATIONAL NORM RATIO 0.9 (0.9-1.1); Prothrombin Time 10.8 SEC (11.1-13.3)
[2023-06-16 14:02] LABS: Partial Thromboplastin Time 31.4 SEC (26.0-36.4)
[2023-06-16 14:17] LABS: Anion Gap 14 (12-20); Blood Urea Nitrogen 12 mg/dL (9-16); Calcium 9.5 mg/dL (8.4-10.2); Carbon Dioxide 27 mmol/L (22-29); Chloride 103 mmol/L (96-108); Estimated Glomerular Filt Rate > 60; Glucose Random 91 mg/dL (60-115); Sodium 140 mmol/L (135-145)
== END 2023-06-16 09:58 | disposition home or self-care (01) ==
LOC: HO.HMGCLR 09:57
PROVIDERS: PCP Internal Medicine; Visit Provider Internal Medicine
DX: Z00.00 Encounter for general adult medical examination without abnormal findings (principal); I10 Essential (primary) hypertension; E78.5 Hyperlipidemia, unspecified
CPT/HCPCS: 36415; 80048; 81001; 85025; 85610; 85730

== ENCOUNTER 2023-09-28 13:13 | Outpatient (AMB) | payer MEDICARE, SELFPAY ==
--- NOTE | 2023-09-28 13:14 | A.OFFPC_ITS ---
Vital Signs 09/28/23 13:15 Height 5 ft 5 in Weight 139 lb BMI 23.1 BP 135/85 Blood Pressure Location Rt brachial Position Sitting Pulse 84 Pulse Source Pulse Oximeter Pulse Oximetry (%) 98 Oxygen Delivery Method Room Air Intake Visit Reasons: HDF UCONN/back surgery Intake Note: Pt is here today for a Hospital follow up visit. Allergies hydromorphone [From Dilaudid] Allergy (Intermediate, Verified 09/28/23 13:20) nausea, dizziness, flushed face amitriptyline Allergy (Unknown, Verified 09/28/23 13:18) increased heart rate, SOB budesonide [Rhinocort Allergy] Allergy (Unknown, Verified 09/28/23 13:18) swelling redness of the nose fentanyl Allergy (Unknown, Verified 09/28/23 13:18) itchy imipramine [From Tofranil] Allergy (Unknown, Verified 09/28/23 13:18) Hives oxycodone Allergy (Unknown, Verified 09/28/23 13:18) itchy tapentadol Allergy (Unknown, Verified 09/28/23 13:18) Unknown hydrochlorothiazide Adverse Reaction (Intermediate, Verified 09/28/23 13:18) Confusion alendronate sodium [Fosamax] Adverse Reaction (Unknown, Verified 09/28/23 13:18) Abdominal Pain duloxetine Adverse Reaction (Unknown, Verified 09/28/23 13:18) insomnia and hedache pregabalin Adverse Reaction (Unknown, Verified 09/28/23 13:18) waking tramadol [Ultram] Adverse Reaction (Unknown, Verified 09/28/23 13:18) auforia feeling amlodipine Adverse Reaction (Verified 09/28/23 13:18) tiredness and back pain Medication List - Last Reconciled 09/28/23 by Alison Christianson MD aspirin 81 mg PO DAILY hydralazine 10 mg PO BID lisinopril 40 mg PO DAILY metoprolol succinate ER 50 mg PO BID simvastatin 40 mg PO BEDTIME trospium 20 mg PO DAILY venlafaxine ER 75 mg PO DAILY zoledronic snli-gmodhpqq-ctwdt 5 mg/100 mL (Reclast) 1 ea IV ONCE Tobacco use date assessed: 09/28/23 Fall risk assessment: No Falls in past year Last assessed Fall Risk: 09/28/23 Dental Screening Dental Screen Date: 09/28/23 Did you have a dental visit in the last 12 months?: Yes Did you have a dental problem in the last 6 months where you did not have access to dental care?: No Was dental information given to patient?: Patient has dentist HPI HDF UCONN/back surgery HPI Details Pt presents for f/u Lumbar spine surgery and SNF stay for 2 months. PFSH Medical History Age related osteoporosis Vitamin D deficiency Annual physical exam HTN (hypertension) Multinodular goiter Hyperlipidemia Osteopenia Broken heart syndrome Depression Cloudy urine Surgical History H/O lumbosacral spine surgery S/P MARICARMEN (total abdominal hysterectomy) No pertinent past surgical history Family History Father HTN (hypertension) Mother No problems noted. Social History Housing: Apartment Alcohol intake: never Patient Tobacco Use Status: Former Tobacco user e-Cigarette/Vaping Use: Never Used Current occupational status: retired and disabled Cognitive needs: No Hearing needs: No Vision needs: Yes Questionnaire PHQ-9 Over the last 2 weeks, how often have you been bothered by any of the following problems? 1. Little interest or pleasure in doing things: more than half the days 2. Feeling down, depressed, or hopeless: several days 3. Trouble falling or staying asleep, or sleeping too much: nearly every day 4. Feeling tired or having little energy: more than half the days 5. Poor appetite or overeating: more than half the days 6. Feeling bad about yourself - or that you are a failure or have let yourself or your family down: not at all 7. Trouble concentrating on things, such as reading the newspaper or watching television: not at all 8. Moving or speaking so slowly that other people could have noticed. Or the opposite - being so fidgety or restless that you have been moving around a lot more than usual: not at all 9. Thoughts that you would be better off or of hurting yourself in some way: not at all Total score: 10 Depression Screening Interpretation: Positive Depression Screening Done: Yes Source: Developed by Aysha Thakkar Kurt Kroenke and colleagues, with an educational cory from [employer]. Thrive Questionnaire Date Thrive assessed: 09/28/23 I am a: Patient What is your living situation today?: I have a steady place to live Within the past 12 months, did the food you bought not last and you didn't have the money to get more?: Never true Within the past 12 months, did you worry whether your food would run out before you got money to buy more?: Never true Do you have trouble paying for medicines?: No Do you have trouble getting transportation to medical appointments?: No Do you have trouble paying your heating and electricity bill?: No Do you have trouble taking care of your child, family member or friend?: No Do you have trouble with day-to-day activities such as bathing, preparing meals, shopping, managing finances, etc.?: No Are you currently unemployed and looking for a job?: No Are you interested in more education?: No Please select the resources that you would like help with: None Currently or been in a relationship where the following occur: no concerns reported THRIVE Score: 0 AUDIT C Alcohol Use Questionnaire (AUDIT-C) 1. How often do you have a drink containing alcohol?: Never 3. How often do you have six or more drinks on one occasion?: Never Total Score: 0 MAEVE-7 AMB Questionnaire MAEVE-7 Date MAEVE - 7 assessed: 09/28/23 Feeling nervous, anxious, or on edge: 0 = Not at all Not being able to stop or control worryin = Not at all Worrying too much about different things: 0 = Not at all Trouble relaxin = Not at all Being so restless that it is hard to sit still: 0 = Not at all Becoming easily annoyed or irritable: 1 = Several days Feeling afraid as if something awful might happen: 0 = Not at all Total MAEVE-7 score (0-4 normal; 5-9 mild; 10-14 moderate; 15-21 severe): 1 Source: Developed by Aysha Thakkar Kurt Kroenke and colleagues, with an educational cory from [employer]. Review of Systems Const All systems reviewed & are unremarkable except as noted in HPI and below Reports no additional complaints Eyes Reports no additional complaints ENT Reports no additional complaints Card Reports no additional complaints Resp Reports no additional complaints GI Reports no additional complaints Reports no additional complaints Physical exam (Primary Care) Vital Signs: Last Vital Signs Pulse 84 09/28/23 13:15 BP 146/94 H 09/28/23 13:15 Pulse Ox 98 09/28/23 13:15 Oxygen Delivery Method Room Air 09/28/23 13:15 BMI result Body Mass Index 23.1 Tobacco/Smoking Status: Tobacco use Status Tobacco use date assessed 09/28/23 09/28/23 13:24 Patient Tobacco Use Status Former Tobacco user 09/28/23 13:24 e-Cigarette/Vaping Use Never Used 09/28/23 13:24 Depression Screening Interpretation: Positive Thrive Assessment: Date of Thrive Assessment Date Thrive assessed 09/17/22 09/28/23 13:24 Currently or been in a relationship where the following occur: no concerns reported Const General: no acute distress HENMT Head: Yes normal to inspection Ears: hearing grossly normal bilaterally Mouth: Normal oral and palatal mucosa present Eyes General: appearance normal, both eyes and all related structures Resp Effort & Inspection: normal respiratory effort Auscultation: clear to auscultation bilaterally Cardio Rhythm: regular rhythm Heart sounds: S1 normal heart sound present and S2 normal heart sound present Assessment and Plan Assessment & Plan (1) HTN (hypertension): Comment: Patient follows up with [facility] Cardiology Code(s): I10 - Essential (primary) hypertension Plan: Continue current medications, patient has been monitoring her blood pressure at home (2) Hyperlipidemia: Code(s): E78.5 - Hyperlipidemia, unspecified Plan: Continue statin (3) Age related osteoporosis: Comment: DEXA osteporosis 09/2019, s/p 2 RECLAST infusions 09/2019, 09/2020, DEXA 20 % improvement , 3rd infusion 11/2021, due for DEXA in 10/29 Code(s): M81.0 - Age-related osteoporosis without current pathological fracture Plan: Patient will have a DEXA next month (4) Thoracic radiculopathy due to degenerative joint disease of spine: Comment: s/p surgery 06/27 [facility] Code(s): M47.24 - Other spondylosis with radiculopathy, thoracic region Plan: f/u ortho Orders: Orders Comprehensive Met. Panel 1 Month E78.5 - Hyperlipidemia, unspecified, I10 - Es sential (primary) hypertension Complete Blood Count Auto Diff 1 Month E78.5 - Hyperlipidemia, unspecified, I10 - Essential (primary) hypertension TSH reflex Free T4 1 Month E78.5 - Hyperlipidemia, unspecified, I10 - Essential (primary) hypertension IRON PROFILE 1 Month E78.5 - Hyperlipidemia, unspecified, I10 - Essential (primary) hypertension Coding Level of Care Code Est Pt Level 4 (10950) Diagnoses HTN (hypertension) I10 Hyperlipidemia E78.5 Age related osteoporosis M81.0 Thoracic radiculopathy due to degenerative joint disease of spine M47.24
[2023-09-28 13:15] VITALS: BP 135/85; PULSE 84; O2SAT 98; BMI 23.1
== END 2023-09-28 13:50 | disposition home or self-care (01) ==
PROVIDERS: PCP Internal Medicine; Visit Provider Internal Medicine
DX: I10 Essential (primary) hypertension (principal); E78.5 Hyperlipidemia, unspecified; M81.0 Age-related osteoporosis without current pathological fracture; M47.24 Other spondylosis with radiculopathy, thoracic region
CPT/HCPCS: 99214

== ENCOUNTER 2023-10-01 07:36 | Outpatient (REF) | payer MEDICARE, SELFPAY ==
[2023-10-01 11:20] LABS: MANUAL DIFF FLAG NO
[2023-10-01 11:41] LABS: Basophils Percent Auto 0.3 % (0-2); Eosinophils Absolute Auto 0.1 X10*3/uL (0.0-0.4); Eosinophils Percent Auto 1.8 % (0-4); Hematocrit 41.6 % (37.0-47.0); Hemoglobin 12.9 g/dl (12.0-16.0); Imm Gran Abs Auto 0.01 X10*3/uL (0.00-0.03); Imm Gran Pct Auto 0.2 % (0.0-0.4); Lymphocytes Absolute Auto 2.4 X10*3/uL (1.2-4.9); Lymphocytes Percent Auto 39.5 % (20-40); Mean Corpuscular Volume 96.7 fL (80.0-98.0); Mean Platelet Volume 11.4 fL (9.4-12.3); Monocytes Absolute Auto 0.5 X10*3/uL (0.1-1.2); Monocytes Percent Auto 8.4 % (2-11); Neutrophils Percent Auto 49.8 % (45-73); Platelet Count 269 X10*3/uL (160-400); Red Cell Distribution Width 14.1 % (11.0-16.0)
[2023-10-01 12:09] LABS: Alanine Aminotransferase 16 U/L (0-31); Albumin Level 4.4 g/dL (3.5-5.0); Alkaline Phosphatase 73 U/L (39-117); Anion Gap 16 (12-20); Aspartate Amino Transferase 22 U/L (5-31); Bilirubin Total 0.5 mg/dL (0.0-1.0); Blood Urea Nitrogen 15 mg/dL (9-16); Calcium 10.1 mg/dL (8.4-10.2); Carbon Dioxide 26 mmol/L (22-29); Chloride 105 mmol/L (96-108); Estimated Glomerular Filt Rate > 60; Glucose Random 99 mg/dL (60-115); Iron 104 mcg/dL (30-160); Percent Iron Saturation 32 % (15-50); Potassium 4.5 mmol/L (3.3-5.1); Sodium 142 mmol/L (135-145); Total Iron Binding Capacity 321 mcg/dL (228-428); Total Protein 7.2 g/dL (6.5-8.0); Unsaturated Iron Binding 217 ug/dL
[2023-10-01 12:29] LABS: Cortisol Random 9.9 ug/dL
[2023-10-01 12:30] LABS: TSH reflex Free T4 0.73 uIU/mL (0.32-4.0)
== END 2023-10-01 07:37 | disposition home or self-care (01) ==
LOC: HO.HMGCLDS 07:36
PROVIDERS: PCP Internal Medicine; Visit Provider Internal Medicine
DX: I10 Essential (primary) hypertension (principal); E78.5 Hyperlipidemia, unspecified; I95.1 Orthostatic hypotension
CPT/HCPCS: 36415; 80053; 82533; 83540; 84443; 85025

== ENCOUNTER 2023-10-07 10:43 | Outpatient (AMB) | payer MEDICARE, SELFPAY ==
[2023-10-07 11:04] VITALS: BP 125/76; PULSE 68; O2SAT 98; BMI 23.0
--- NOTE | 2023-10-07 11:04 | MHC.PC.OV ---
Vital Signs 10/07/23 11:04 10/07/23 11:48 Height 5 ft 5 in Weight 138 lb BMI 23.0 BP 125/76 120/75 Blood Pressure Location Lt brachial Rt brachial Position Sitting Standing Pulse 68 85 Pulse Source Pulse Oximeter Pulse Oximetry (%) 98 Oxygen Delivery Method Room Air Intake Visit Reasons: follow up blood pressure Intake Note: Pt is here today for a follow up visit on BP. Allergies hydromorphone [From Dilaudid] Allergy (Intermediate, Verified 10/07/23 11:06) nausea, dizziness, flushed face amitriptyline Allergy (Unknown, Verified 10/07/23 11:06) increased heart rate, SOB budesonide [Rhinocort Allergy] Allergy (Unknown, Verified 10/07/23 11:06) swelling redness of the nose fentanyl Allergy (Unknown, Verified 10/07/23 11:06) itchy imipramine [From Tofranil] Allergy (Unknown, Verified 10/07/23 11:06) Hives oxycodone Allergy (Unknown, Verified 10/07/23 11:06) itchy tapentadol Allergy (Unknown, Verified 10/07/23 11:06) Unknown hydrochlorothiazide Adverse Reaction (Intermediate, Verified 10/07/23 11:06) Confusion alendronate sodium [Fosamax] Adverse Reaction (Unknown, Verified 10/07/23 11:06) Abdominal Pain duloxetine Adverse Reaction (Unknown, Verified 10/07/23 11:06) insomnia and hedache pregabalin Adverse Reaction (Unknown, Verified 10/07/23 11:06) waking tramadol [Ultram] Adverse Reaction (Unknown, Verified 10/07/23 11:06) auforia feeling amlodipine Adverse Reaction (Verified 10/07/23 11:06) tiredness and back pain Medication List - Last Reconciled 10/07/23 by Alison Christianson MD aspirin 81 mg PO DAILY metoprolol succinate ER 50 mg PO BID simvastatin 40 mg PO BEDTIME trospium 20 mg PO DAILY venlafaxine ER 75 mg PO DAILY zoledronic vqno-ihtbpwmi-xhmhn 5 mg/100 mL (Reclast) 1 ea IV ONCE Tobacco use date assessed: 09/28/23 HPI follow up blood pressure HPI Details Pt presents for f/u HTN, hyperlipid. Patient has been getting home physical therapy after lower back surgery and reports fluctuating blood pressure. She has been adjusting her blood pressure medication daily depending on the readings. Taking 5-10 mg of lisinopril and occasionally increasing metoprolol to 75 mg twice a day but not daily. Patient reports having increased heart rate when standing up and feeling dizzy lightheaded since the discharge from the rehab. [facility] Medical History Age related osteoporosis Vitamin D deficiency Annual physical exam HTN (hypertension) Multinodular goiter Hyperlipidemia Osteopenia Broken heart syndrome Depression Cloudy urine Surgical History H/O lumbosacral spine surgery S/P AMRICARMEN (total abdominal hysterectomy) No pertinent past surgical history Family History Father HTN (hypertension) Mother No problems noted. Social History Housing: Apartment Alcohol intake: never Patient Tobacco Use Status: Former Tobacco user e-Cigarette/Vaping Use: Never Used Current occupational status: retired and disabled Cognitive needs: No Hearing needs: No Vision needs: Yes Questionnaire Thrive Questionnaire Date Thrive assessed: 09/28/23 MAEVE-7 AMB Questionnaire MAEVE-7 Date MAEVE - 7 assessed: 09/28/23 Source: Developed by Drs. Krish Garcia, Aysha Werner, Carlos Broussard and colleagues, with an educational cory from [employer]. Review of Systems Const All systems reviewed & are unremarkable except as noted in HPI and below Reports no additional complaints Eyes Reports no additional complaints ENT Reports no additional complaints Card Reports no additional complaints Resp Reports no additional complaints GI Reports no additional complaints Reports no additional complaints Musc Reports no additional complaints Physical exam (Primary Care) Vital Signs: Last Vital Signs Pulse 68 10/07/23 11:04 BP 120/75 10/07/23 11:48 Pulse Ox 98 10/07/23 11:04 Oxygen Delivery Method Room Air 10/07/23 11:04 BMI result Body Mass Index 23.0 Tobacco/Smoking Status: Tobacco use Status Tobacco use date assessed 09/28/23 10/07/23 11:09 Patient Tobacco Use Status Former Tobacco user 10/07/23 11:09 e-Cigarette/Vaping Use Never Used 10/07/23 11:09 Thrive Assessment: Date of Thrive Assessment Date Thrive assessed 09/28/23 10/07/23 11:09 Const General: no acute distress HENMT Head: Yes normal to inspection Ears: hearing grossly normal bilaterally Face and sinus: Yes normal facial exam Resp Effort & Inspection: normal respiratory effort Auscultation: clear to auscultation bilaterally Cardio Rhythm: regular rhythm Heart sounds: S1 normal heart sound present and S2 normal heart sound present GI Inspection: Yes normal to inspection Palpation (GI): Soft to palpation Assessment and Plan Assessment & Plan (1) HTN (hypertension): Comment: Patient follows up with [facility] Cardiology Code(s): I10 - Essential (primary) hypertension Plan: Patient was advised to increase 75 mg of metoprolol in the morning and 50 mg at night and continue lisinopril 5 mg at bedtime. She was advised to check her blood pressure only once a day and continue increase fluid intake (2) Tachycardia: Code(s): R00.0 - Tachycardia, unspecified Plan: Increase metoprolol to 75 in the morning and 50 at night. Patient follows up with Cardiology next month Medications: New lisinopril 5 mg PO DAILY 90 tabs 1RF Discontinued hydralazine Discontinued Reason: Doctor's Order 10 mg PO BID 60 tabs 5RF lisinopril Discontinued Reason: Doctor's Order 40 mg PO DAILY 90 tabs 3RF Coding Level of Care Code Est Pt Level 3 (40749) Diagnoses HTN (hypertension) I10 Tachycardia R00.0
[2023-10-07 11:48] VITALS: BP 120/75; PULSE 85
== END 2023-10-07 12:07 | disposition home or self-care (01) ==
PROVIDERS: PCP Internal Medicine; Visit Provider Internal Medicine
DX: I10 Essential (primary) hypertension (principal); R00.0 Tachycardia, unspecified
CPT/HCPCS: 99213

== ENCOUNTER 2023-10-14 10:46 | Outpatient (REF) | payer MEDICARE, SELFPAY ==
--- NOTE | ~2023-10-14 | MM_ITS ---
EXAMINATION: BONE DENSITOMETRY CLINICAL INDICATION: Age related osteoporosis without current pathological fracture. COMPARISON: Previous BD dated 10/07/2021 and baseline BD dated 10/05/2019. TECHNIQUE: Using a [employer] DXA System (software version: 13.1) manufactured by [employer], dual-energy x-ray absorptiometry was performed of the left hip and left forearm radius 33%. The images are of good technical quality. Summary results are attached. FINDINGS: LEFT FEMUR, NECK: Current: BMD 0.779 g/cm2, Z-score 0.0, T-score -1.9, osteopenia. Prior: BMD 0.663 g/cm2. Baseline: BMD 0.537 g/cm2. LEFT FEMUR, TOTAL: Current: BMD 0.711 g/cm2, Z-score -0.6, T-score -2.4, osteopenia, 2.7% increase from previous, 30.7% increase from baseline (<5% change is not significant). Prior: BMD 0.692 g/cm2. Baseline: BMD 0.544 g/cm2. LEFT FOREARM RADIUS 33%: BMD 0.691 g/cm2, Z-score 0.0, T-score -2.1, osteopenia, 7.2% decrease from previous, 11.8% increase from baseline (<5% change is not significant). Prior: BMD 0.745 g/cm2. Baseline: BMD 0.618 g/cm2. IDENTIFIED RISK FACTORS: Menopause, low calcium intake, osteoporosis, hysterectomy, history of fracture (adult), bilateral oophorectomy. HISTORY OF FRACTURE: Spine. MEDICATIONS: Calcium, vitamin D, bisphosphonate. MM/XR DEXA axial skeleton IMPRESSION: 1. DIAGNOSIS: Osteopenia based on the lowest T-score value of -2.4 in the total femur applying World Health Organization criteria. 2. 10-YEAR FRACTURE RISK PREDICTION, FRAX: Not performed in this patient on estrogen or bone building treatments. 3. Treatment Recommendations: NOF guidelines recommend consideration for treatment in postmenopausal women and men age 50 and older presenting with the following: -A hip or vertebral (clinical or morphometric) fracture. -T-score less than or equal to -2.5 at the femoral neck or spine after appropriate evaluation to exclude secondary causes. -Low bone mass at the hip or spine and a 10-year fracture probability by FRAX of greater than or equal to 3% for hip fracture or greater than or equal to 20% for major osteoporotic fracture based on the [place] adapted WHO algorithm. 4. Other Recommendations: All treatment decisions require clinical judgment and consideration of individual patient factors, including patient preferences, comorbidities, previous drug use, risk factors not captured in the FRAX model (e.g. frailty, falls, vitamin D deficiency, increased bone turnover, interval significant decline in bone density) and possible under or overestimation of fracture risk by FRAX. Additional medical evaluation for secondary cause of low bone mineral density may be appropriate. FUTURE SCAN RECOMMENDATION: People with diagnosed cases of osteoporosis or at high risk for fracture should have regular bone mineral density tests. For patients eligible for Medicare, routine testing is allowed once every 2 years. The testing frequency can be increased to one year for patients who have rapidly progressing disease, those who are receiving or discontinuing medical therapy to restore bone mass, or have additional risk factors.
== END 2023-10-14 10:47 | disposition home or self-care (01) ==
LOC: HO.MAMMO 10:46
PROVIDERS: PCP Internal Medicine; Visit Provider Internal Medicine
DX: M81.0 Age-related osteoporosis without current pathological fracture (principal)
CPT/HCPCS: 77080

== ENCOUNTER 2023-11-19 07:27 | Outpatient (REF) | payer MEDICARE, SELFPAY ==
[2023-11-23 23:53] LABS: Metanephrine, Free 27 pg/mL (<=57); Normetanephrines, Free 201 pg/mL (<=148); Total Metanephrine, Free 228 pg/mL (<=205)
== END 2023-11-19 07:28 | disposition home or self-care (01) ==
LOC: HO.HMGCLDS 07:27
PROVIDERS: PCP Internal Medicine; Referring Provider Internal Medicine Cardiovascular Disease; Visit Provider Internal Medicine
DX: I51.81 Takotsubo syndrome (principal); R00.2 Palpitations
CPT/HCPCS: 36415; 83835

== ENCOUNTER 2023-11-24 12:53 | Outpatient (REF) | payer MEDICARE, SELFPAY ==
[2023-11-24 13:08] VITALS: BP 198/98; PULSE 60; RESP 17; TEMP 36.6
--- NOTE | 2023-11-24 13:28 | PC.NURSE ---
labs drawn and sent to lab. awaiting results for infusion
[2023-11-24 13:52] LABS: Blood Urea Nitrogen 18 mg/dL (9-16); Estimated Glomerular Filt Rate > 60
[2023-11-24] MEDS: Zoledronic Acid/Mannitol-Water 5 MG/100 ML PGGYBK.BTL 400 MG IV (13:58)
== END 2023-11-24 12:54 | disposition home or self-care (01) ==
LOC: HO.MDS 12:53
PROVIDERS: Visit Provider Internal Medicine
DX: M81.0 Age-related osteoporosis without current pathological fracture (principal)
CPT/HCPCS: 36415; 82565; 84520; 96374; J3489

== ENCOUNTER 2024-05-11 08:41 | Outpatient (AMB) | payer MEDICARE, SELFPAY ==
--- NOTE | 2024-05-11 08:43 | MHC.PC.OV ---
Intake Visit Reasons: AWV Allergies hydromorphone [From Dilaudid] Allergy (Intermediate, Verified 10/07/23 11:06) nausea, dizziness, flushed face amitriptyline Allergy (Unknown, Verified 10/07/23 11:06) increased heart rate, SOB budesonide [Rhinocort Allergy] Allergy (Unknown, Verified 10/07/23 11:06) swelling redness of the nose fentanyl Allergy (Unknown, Verified 10/07/23 11:06) itchy imipramine [From Tofranil] Allergy (Unknown, Verified 10/07/23 11:06) Hives oxycodone Allergy (Unknown, Verified 10/07/23 11:06) itchy tapentadol Allergy (Unknown, Verified 10/07/23 11:06) Unknown hydrochlorothiazide Adverse Reaction (Intermediate, Verified 10/07/23 11:06) Confusion alendronate sodium [Fosamax] Adverse Reaction (Unknown, Verified 10/07/23 11:06) Abdominal Pain duloxetine Adverse Reaction (Unknown, Verified 10/07/23 11:06) insomnia and hedache pregabalin Adverse Reaction (Unknown, Verified 10/07/23 11:06) waking tramadol [Ultram] Adverse Reaction (Unknown, Verified 10/07/23 11:06) auforia feeling amlodipine Adverse Reaction (Verified 10/07/23 11:06) tiredness and back pain Tobacco use date assessed: 09/28/23 Dental Screening Dental Screen Date: 09/28/23 [facility] Medical History Age related osteoporosis Vitamin D deficiency Annual physical exam HTN (hypertension) Multinodular goiter Hyperlipidemia Osteopenia Broken heart syndrome Depression Cloudy urine Surgical History H/O lumbosacral spine surgery S/P MARICARMEN (total abdominal hysterectomy) No pertinent past surgical history Family History Father HTN (hypertension) Mother No problems noted. Social History Housing: Apartment Alcohol intake: never Patient Tobacco Use Status: Former Tobacco user e-Cigarette/Vaping Use: Never Used Current occupational status: retired and disabled Cognitive needs: No Hearing needs: No Vision needs: Yes Questionnaire PHQ-9 Over the last 2 weeks, how often have you been bothered by any of the following problems? 1. Little interest or pleasure in doing things: not at all 2. Feeling down, depressed, or hopeless: not at all 3. Trouble falling or staying asleep, or sleeping too much: not at all 4. Feeling tired or having little energy: not at all 5. Poor appetite or overeating: not at all 6. Feeling bad about yourself - or that you are a failure or have let yourself or your family down: not at all 7. Trouble concentrating on things, such as reading the newspaper or watching television: not at all 8. Moving or speaking so slowly that other people could have noticed. Or the opposite - being so fidgety or restless that you have been moving around a lot more than usual: not at all 9. Thoughts that you would be better off or of hurting yourself in some way: not at all Total score: 0 Source: Developed by Drs. Krish Garcia, Aysha Werner, Carlos Broussard and colleagues, with an educational cory from [employer]. Thrive Questionnaire Date Thrive assessed: 05/04/24 I am a: Patient What is your living situation today?: I have a steady place to live Within the past 12 months, did the food you bought not last and you didn't have the money to get more?: I choose not to answer this question Within the past 12 months, did you worry whether your food would run out before you got money to buy more?: I choose not to answer this question Do you have trouble paying for medicines?: No Do you have trouble getting transportation to medical appointments?: No Do you have trouble paying your heating and electricity bill?: No Do you have trouble taking care of your child, family member or friend?: No Do you have trouble with day-to-day activities such as bathing, preparing meals, shopping, managing finances, etc.?: No Are you currently unemployed and looking for a job?: No Are you interested in more education?: No Please select the resources that you would like help with: None Currently or been in a relationship where the following occur: No concerns reported THRIVE Score: 0 AUDIT C Alcohol Use Questionnaire (AUDIT-C) 1. How often do you have a drink containing alcohol?: Never 3. How often do you have six or more drinks on one occasion?: Never Total Score: 0 MAEVE-7 AMB Questionnaire MAEVE-7 Date MAEVE - 7 assessed: 09/28/23 Feeling nervous, anxious, or on edge: 0 = Not at all Not being able to stop or control worryin = Not at all Worrying too much about different things: 0 = Not at all Trouble relaxin = Not at all Being so restless that it is hard to sit still: 0 = Not at all Becoming easily annoyed or irritable: 0 = Not at all Feeling afraid as if something awful might happen: 0 = Not at all Total MAEVE-7 score (0-4 normal; 5-9 mild; 10-14 moderate; 15-21 severe): 0 Source: Developed by Drs. Krish Garcia, Aysha Werner, Carlos Broussard and colleagues, with an educational cory from [employer]. Physical exam (Primary Care) Tobacco/Smoking Status: Tobacco use Status Tobacco use date assessed 09/28/23 10/07/23 11:09 Patient Tobacco Use Status Former Tobacco user 10/07/23 11:09 e-Cigarette/Vaping Use Never Used 10/07/23 11:09 Thrive Assessment: Date of Thrive Assessment Date Thrive assessed 05/04/24 05/04/24 16:49 Currently or been in a relationship where the following occur: No concerns reported Coding
[2024-05-11 08:45] VITALS: BP 130/90; PULSE 54; O2SAT 96; BMI 22.6
--- NOTE | 2024-05-11 08:45 | AM.OFFVISMDC ---
Intake Vital Signs 05/11/24 08:45 Height 5 ft 5 in Weight 136 lb BMI 22.6 BP 130/90 H Blood Pressure Location Rt brachial Position Sitting Pulse 54 Pulse Source Pulse Oximeter Pulse Oximetry (%) 96 Oxygen Delivery Method Room Air Intake Visit Reasons: AWV Allergies hydromorphone [From Dilaudid] Allergy (Intermediate, Verified 05/11/24 08:46) nausea, dizziness, flushed face amitriptyline Allergy (Unknown, Verified 05/11/24 08:46) increased heart rate, SOB budesonide [Rhinocort Allergy] Allergy (Unknown, Verified 05/11/24 08:46) swelling redness of the nose fentanyl Allergy (Unknown, Verified 05/11/24 08:46) itchy imipramine [From Tofranil] Allergy (Unknown, Verified 05/11/24 08:46) Hives oxycodone Allergy (Unknown, Verified 05/11/24 08:46) itchy tapentadol Allergy (Unknown, Verified 05/11/24 08:46) Unknown hydrochlorothiazide Adverse Reaction (Intermediate, Verified 05/11/24 08:46) Confusion alendronate sodium [Fosamax] Adverse Reaction (Unknown, Verified 05/11/24 08:46) Abdominal Pain duloxetine Adverse Reaction (Unknown, Verified 05/11/24 08:46) insomnia and hedache pregabalin Adverse Reaction (Unknown, Verified 05/11/24 08:46) waking tramadol [Ultram] Adverse Reaction (Unknown, Verified 05/11/24 08:46) auforia feeling amlodipine Adverse Reaction (Verified 05/11/24 08:46) tiredness and back pain Medication List - Last Reconciled 05/11/24 by Alison Christianson MD aspirin 81 mg PO DAILY lisinopril 40 mg PO DAILY metoprolol succinate ER 50 mg PO BID simvastatin 40 mg PO BEDTIME trospium 20 mg PO DAILY venlafaxine ER 75 mg PO DAILY zoledronic imnc-bhjundka-bjklq 5 mg/100 mL (Reclast) 1 ea IV ONCE Do you need a note to return to daycare/school/sports/work: No HPI AWV HPI Details Initiated the conversation about Advanced Directives. Advanced Directives help? patients prepare for current and future decisions about their medical treatment? and place of care. Discussed with patient that it is a process where a patients? current condition and prognosis are reviewed, their wishes for information? regarding their illness are elicited, and likely medical dilemmas are presented? and options discussed. The form can be amended as needed, reviewed yearly and? make changes as needed IPPE/AWV ? year old presents? for her ? Annual? Wellness Visit, initial visit.? Medical / Social History Reviewed? Past Medical History ?Yes? . ? [place]? of Care / Care Team list updated ?Yes . ? Surgical/Hospitalization? History ?Yes . ? Current Medications? (including OTC and supplements) ?Yes . ? Family History ?Yes? . ? Tobacco? Control form ?Yes . ? AUDIT-C (Alcohol use) form? ?Yes . ? Illicit drug use in Social? History ?Yes . ? Current diagnosis of? depression? ?No ? Appropriate PHQ2/PHQ9? completed ?Yes . ? Data entered by ?Medical? Labor Supervisor and reviewed by provider ? Fall Risk ? Fall? History? Have you had any falls with? injury in the past year? ?No . ? Have you had two or more? falls in the past year? ?No . ? Fall Risk Assessment: ?No? falls in the past year . ? HRA filled out by? the patient, reviewed by Provider and scanned. ? IPPE/AWV ? Balance? [place]? ?Yes . ? Tandem? walk ?Yes . ? Walk and? Turn ?Yes . ? Rise from? sit to stand ?Yes . ?Vision? Corrective? lens ?Yes ? Vision? screen ? Up-to-date, has an appointment [] for vision? screening and glaucoma screening ?Hearing? Whisper? test ?pass .? Initiated the conversation about Advanced Directives. Advanced Directives help? patients prepare for current and future decisions about their medical treatment? and place of care. Discussed with patient that it is a process where a patients? current condition and prognosis are reviewed, their wishes for information? regarding their illness are elicited, and likely medical dilemmas are presented? and options discussed. The form can be amended as needed, reviewed yearly and? make changes as needed Written? Plan?Completed. See Patient? Documents. [facility] Medical History (Updated 05/11/24 @ 09:21 by Alison Christianson MD) Age related osteoporosis Vitamin D deficiency Annual physical exam HTN (hypertension) Multinodular goiter Hyperlipidemia Osteopenia Broken heart syndrome Depression Cloudy urine Surgical History H/O lumbosacral spine surgery S/P MARICARMEN (total abdominal hysterectomy) No pertinent past surgical history Family History Father HTN (hypertension) Mother No problems noted. Social History Housing: Apartment Alcohol intake: never Patient Tobacco Use Status: Former Tobacco user e-Cigarette/Vaping Use: Never Used Current occupational status: retired and disabled Cognitive needs: No Hearing needs: No Vision needs: Yes Questionnaire Medicare Wellness Checkup [age] What gender do you identify with?: female During the past 4 weeks, how much have you been bothered by emotional problems such as feeling anxious, depressed, irritable, sad or downhearted, and blue?: not at all During the past 4 weeks, has your physical & emotional health limited your social activities with family, friends, neighbors, or groups?: not at all During the past 4 weeks, how much bodily pain have you generally had?: no pain During the past 4 weeks, was someone available to help you if you needed & wanted help?: no, not at all During the past 4 weeks, what was the hardest physical activity you could do for at least 2 minutes?: very light Can you get to places out of walking distance without help? (For eg., can you travel alone on buses, taxis or drive your car?): Yes Can you go shopping for groceries or clothes without someone's help?: Yes Can you prepare your own meals?: Yes Can you do your housework without help?: Yes Because of any health problems, do you need the help of another person with your personal care needs such as eating, bathing, dressing or getting around the house?: No Can you handle your own money without help?: Yes During the past 4 weeks, how would you rate your health in general?: very good During the past 4 weeks how have things been going for you?: pretty well Are you having difficulties driving your car?: no Do you always fasten your seat belt when you are in a car?: yes, usually During past 4 weeks, have you been bothered by the following: never: Sexual problems?, Trouble eating well?, Teeth or denture problems? and Problems using the telephone? and seldom: Falling or dizzy when standing up and Tiredness or fatigue? Have you fallen 2 or more times in the past year?: No Are you afraid of falling?: No Are you a smoker?: no During the past 4 weeks, how many drinks of wine, beer, or other alcoholic beverages did you have?: no alcohol at all Do you exercise for about 20 minutes 3 or more times a week?: yes, some of the time Have you been given information to help with the following?: yes: Hazards in your house that might hurt you? and yes: Keeping track of your medications? How often do you have trouble taking medicines the way you have been told to take them?: I always take medicine as prescribed How confident are you that you can control & manage most of your health problems?: very confident What is your race?: White Mini Mental State Exam (MMSE) Orientation What is the (year) (season) (date) (day) (month)?: year, season, date, day and month Where are we (state) (county) (town or city) (hospital) (floor)?: state, county, town or city, hospital/clinic and floor Registration Name of 3 unrelated objects clearly and slowly, then ask patient to repeat all 3 of them. (1st repeat determines score. Make sure they can repeat all three): object 1, object 2 and object 3 Attention & Calculation (CHOOSE ONE) Spell WORLD backwards (DLROW): 5 letters Recall Ask patient to repeat the 3 items from question #3.: object 1, object 2 and object 3 Language Show patient a wristwatch & ask what it is. Repeat for pencil.: watch and pencil Ask the patient to repeat the phrase 'No ifs, ands, or buts' after you.: correct Ask the patient to 'take a piece of paper with their right hand' 'fold paper in half' 'place paper on floor': take paper in right hand, fold paper in half and place paper on floor Print the sentence 'CLOSE YOUR EYES' on a piece. If patient actually closes eyes then score.: followed written direction Give patient a blank piece of paper & ask to write a sentence. Score if it contains a noun & verb.: sentence contains subject and verb Score Score: 29 PHQ-9 Over the last 2 weeks, how often have you been bothered by any of the following problems? 1. Little interest or pleasure in doing things: not at all 2. Feeling down, depressed, or hopeless: not at all 3. Trouble falling or staying asleep, or sleeping too much: not at all 4. Feeling tired or having little energy: not at all 5. Poor appetite or overeating: not at all 6. Feeling bad about yourself - or that you are a failure or have let yourself or your family down: not at all 7. Trouble concentrating on things, such as reading the newspaper or watching television: not at all 8. Moving or speaking so slowly that other people could have noticed. Or the opposite - being so fidgety or restless that you have been moving around a lot more than usual: not at all 9. Thoughts that you would be better off or of hurting yourself in some way: not at all Total score: 0 Depression Screening Interpretation: Negative Depression Screening Done: Yes 00279 - PHQ-9 Billing: Yes Source: Developed by Drs. Krish Garcia, Aysha Werner, Carlos Broussard and colleagues, with an educational cory from [employer]. Review of Systems Const All systems reviewed & are unremarkable except as noted in HPI and below Eyes Reports no additional complaints ENT Reports no additional complaints Card Reports no additional complaints Resp Reports no additional complaints GI Reports no additional complaints Reports no additional complaints Physical Exam Vital Signs: Last Vital Signs Pulse 54 05/11/24 08:45 BP 130/90 H 05/11/24 08:45 Pulse Ox 96 05/11/24 08:45 Oxygen Delivery Method Room Air 05/11/24 08:45 BMI result Body Mass Index 22.6 Const General: no acute distress HEENT Head: Yes normal to inspection Ears: hearing grossly normal bilaterally Neck Neck: Yes no lymphadenopathy and Yes supple Resp Effort & Inspection: normal respiratory effort Auscultation: clear to auscultation bilaterally Cardio Rhythm: regular rhythm Heart sounds: S1 normal heart sound present and S2 normal heart sound present GI Inspection: Yes normal to inspection Palpation (GI): Soft to palpation Percussion: Yes normal to percussion Extrem General: Yes no clubbing, cyanosis or edema Assessment & Plan Assessment & Plan (1) Orthostatic hypotension: Comment: f/u with cardiology, on Pyridostigmine Code(s): I95.1 - Orthostatic hypotension Plan: Continue current medications follow-up with the Cardiology (2) Age related osteoporosis: Comment: DEXA osteporosis 09/2019, s/p 2 RECLAST infusions 09/2019, 09/2020, DEXA 20 % improvement , 3rd infusion 11/2021, 4th infusion 01/2024, repeat DEXA in 2024 Code(s): M81.0 - Age-related osteoporosis without current pathological fracture Plan: Continue vitamin-D weight-bearing exercise discussed with the patient she will need a repeat DEXA next year (3) Vitamin D deficiency: Code(s): E55.9 - Vitamin D deficiency, unspecified Plan: Continue vitamin-D supplement (4) Hyperlipidemia: Code(s): E78.5 - Hyperlipidemia, unspecified Plan: Continue statin return for fasting labs including lipid profile (5) HTN (hypertension): Comment: Patient follows up with [facility]iology Code(s): I10 - Essential (primary) hypertension Plan: Continue current medications (6) Annual physical exam: Code(s): Z00.00 - Encounter for general adult medical examination without abnormal findings Plan: Well-balanced diet regular physical activity discussed with the patient, she declined mammogram and colonoscopy Orders: Orders Complete Blood Count Auto Diff Today I95.1 - Orthostatic hypotension, M81.0 - Age-related osteoporosis without current pathological fracture, R00.0 - Tachycardia, unspecified Vitamin D 25-OH Total Today E55.9 - Vitamin D deficiency, unspecified Comprehensive [place]. Panel Fast Today I95.1 - Orthostatic hypotension, M81.0 - Age-related osteoporosis without current pathological fracture, R00.0 - Tachycardia, unspecified Lipid Panel Today I95.1 - Orthostatic hypotension, M81.0 - Age-related osteoporosis without current pathological fracture, R00.0 - Tachycardia, unspecified TSH reflex Free T4 Today I95.1 - Orthostatic hypotension, M81.0 - Age-related osteoporosis without current pathological fracture, R00.0 - Tachycardia, unspecified XR DEXA axial skeleton 1 Year M81.0 - Age-related osteoporosis without current pathological fracture Medications: New lisinopril 40 mg PO DAILY 90 tabs 0RF pyridostigmine bromide 60 mg PO TID 90 tabs 0RF Changed From metoprolol succinate ER 50 mg PO BID 180 tabs 3RF To metoprolol succinate ER 75 mg (1.5 x 50 mg) PO BID 180 tabs 3RF Quality Reporting (2019) Depression/Bipolar (159/160/161/177) PHQ-9: Total score: 0 Coding Level of Care Code Medicare Subsequent (G0439) Diagnoses Orthostatic hypotension I95.1 Age related osteoporosis M81.0 Vitamin D deficiency E55.9 Hyperlipidemia E78.5 HTN (hypertension) I10 Annual physical exam Z00.00 CPT Codes Advance Care Planning - Advance Care Planning discussion: On file, no changes ([id number]) Advance Care Planning - Time spent: 1-15 minutes, on File ([id number]) Advance Care Planning Advance Care Planning discussion: On file, no changes Forms completed: Health Care Proxy Time spent: 1-15 minutes, on File Did not discuss due to Cultural/Spiritual beliefs: Yes
== END 2024-05-11 09:17 | disposition home or self-care (01) ==
PROVIDERS: PCP Internal Medicine; Visit Provider Internal Medicine
DX: Z00.00 Encounter for general adult medical examination without abnormal findings (principal); I95.1 Orthostatic hypotension; M81.0 Age-related osteoporosis without current pathological fracture; E55.9 Vitamin D deficiency, unspecified; E78.5 Hyperlipidemia, unspecified; I10 Essential (primary) hypertension
CPT/HCPCS: 1123F; G0439

== ENCOUNTER 2024-05-14 06:21 | Outpatient (REF) | payer MEDICARE, SELFPAY ==
[2024-05-14 10:11] LABS: MANUAL DIFF FLAG NO
[2024-05-14 10:18] LABS: Basophils Percent Auto 0.2 % (0-2); Eosinophils Absolute Auto 0.1 X10*3/uL (0.0-0.4); Eosinophils Percent Auto 1.8 % (0-4); Hemoglobin 13.4 g/dl (12.0-16.0); Imm Gran Abs Auto 0.01 X10*3/uL (0.00-0.03); Imm Gran Pct Auto 0.2 % (0.0-0.4); Lymphocytes Absolute Auto 2.4 X10*3/uL (1.2-4.9); Lymphocytes Percent Auto 48.8 % (20-40); Mean Corpuscular HGB Conc 32.7 g/dl (31.0-35.0); Mean Corpuscular Hemoglobin 32.8 pg (27.0-33.0); Mean Corpuscular Volume 100.2 fL (80.0-98.0); Mean Platelet Volume 11.4 fL (9.4-12.3); Monocytes Absolute Auto 0.4 X10*3/uL (0.1-1.2); Monocytes Percent Auto 7.7 % (2-11); Neutrophils Percent Auto 41.3 % (45-73); Platelet Count 190 X10*3/uL (160-400); Red Blood Count 4.09 X10*6/uL (4.20-5.50); Red Cell Distribution Width 13.2 % (11.0-16.0); White Blood Count 4.9 X10*3/uL (4.8-10.8)
[2024-05-14 10:40] LABS: Alanine Aminotransferase 26 U/L (0-31); Albumin Level 4.3 g/dL (3.5-5.0); Alkaline Phosphatase 47 U/L (39-117); Anion Gap 12 (12-20); Aspartate Amino Transferase 24 U/L (5-31); Bilirubin Total 0.5 mg/dL (0.0-1.0); Blood Urea Nitrogen 21 mg/dL (9-16); Calcium 9.8 mg/dL (8.4-10.2); Carbon Dioxide 29 mmol/L (22-29); Chloride 106 mmol/L (96-108); Cholesterol 185 mg/dL (<200); Estimated Glomerular Filt Rate > 60; Glucose Fasting 96 mg/dL (60-99); HDL Cholesterol 68 mg/dL (>40); LDL Cholesterol Calculated 102 mg/dL (<100); Potassium 4.8 mmol/L (3.3-5.1); Sodium 142 mmol/L (135-145); Triglycerides 77 mg/dL (<150)
[2024-05-14 11:03] LABS: TSH reflex Free T4 0.69 uIU/mL (0.32-4.0)
== END 2024-05-14 06:22 | disposition home or self-care (01) ==
LOC: HO.HMGCLDS 06:21
PROVIDERS: PCP Internal Medicine; Visit Provider Internal Medicine
DX: E55.9 Vitamin D deficiency, unspecified (principal); R00.0 Tachycardia, unspecified; I95.1 Orthostatic hypotension; M81.0 Age-related osteoporosis without current pathological fracture
CPT/HCPCS: 36415; 80053; 80061; 82306; 84443; 85025

== ENCOUNTER 2025-03-21 10:11 | Outpatient (AMB) | payer MEDICARE, SELFPAY ==
--- OUTSIDE RECORDS SUMMARY | 2025-02-28 09:20 | XMS_ITS | Encounter Summary ---
Author Organization [facility] Address [address] [place] [address] Care Team Providers Care Epidemiology Investigator Name Role Phone Alison Christianson MD Primary Care Provider [phone] Reason for Visit * Reason Comments Follow-up Encounter Details Date Type Department Care Team ([facility] Contact Info) Description 02/28/2025 9:20 AM EDT Office Visit [facility] [address] [facility] [address] [place] [phone] Edna Jackson MD [address] [place] [address] Social History Tobacco Use Types Packs/Day Years Used Date Smoking Tobacco: Former Cigarettes Smokeless Tobacco: Never Alcohol Use Standard Drinks/Week Comments No 0 (1 standard drink = 0.6 oz pur e alcohol) Comments Unknown Sex and Gender Information Value Date Recorded Sex Assigned at Not on file Legal Sex Female 9:59 PM EST Gender Identity Not on file Sexual Orientation Not on file documented as of this encounter Last Filed Vital Signs Vital Sign Reading Time Taken Comments Blood Pressure 202/100 02/28/2025 9:39 AM EDT Pulse 55 02/28/2025 9:39 AM EDT Temperature - - Respiratory Rate - - Oxygen Saturation 99% 02/28/2025 9:39 AM EDT Inhaled Oxygen Concentration - - Weight 73 kg (161 lb) 02/28/2025 9:39 AM EDT Height 167.6 cm (5' 6 ) 02/28/2025 9:39 AM EDT Body Mass Index 25.99 02/28/2025 9:39 AM EDT documented in this encounter Plan of Treatment Upcoming Encounters Date Type Department Care Team (Late st Contact Info) Description 06/07/2025 8:50 AM EDT Office Visit [facility] [address] [facility] [address] [place] [address] Edna Jackson MD [address] [place] [address] documented as of this encounter Visit Diagnoses Not on filedocumented in this encounter Discontinued Medications Medication Sig Discontinue Reason Start Date End Da te magnesium hydroxide (MILK OF MAGNESIA) 400 mg/5 mL suspension Take by mouth daily as needed. Prescriber Discontinued 02/28/2025 documented as of this encounter Care Teams Epidemiology Investigator Relationship Specialty Start Date End Date Alison Christianson MD PCP - General Internal Medicine 02/27/25 documented as of this encounter
--- NOTE | 2025-03-21 10:31 | MHC.OFFWIV ---
Intake Vital Signs 03/21/25 10:32 Height 5 ft 5 in Weight 146 lb 8 oz BMI 24.4 BP 147/82 H Blood Pressure Location Rt brachial Position Sitting Pulse 51 Pulse Source Pulse Oximeter Temp 98.0 F Temp Source Oral Pulse Oximetry (%) 99 Oxygen Delivery Method Room Air Intake Visit Reasons: EP-uti Intake Note: Patient present with burning with urination, frequency and urgency along with cloudy urine times 2 days Patient Tobacco Use Status: Former Tobacco user Is last menstrual period known: No Post menopausal: Yes Patient : No Allergies hydromorphone (From Dilaudid) Allergy (Intermediate, Verified 03/21/25 10:41) nausea, dizziness, flushed face amitriptyline Allergy (Unknown, Verified 03/21/25 10:41) increased heart rate, SOB budesonide (Rhinocort Allergy) Allergy (Unknown, Verified 03/21/25 10:41) swelling redness of the nose fentanyl Allergy (Unknown, Verified 03/21/25 10:41) itchy imipramine (From Tofranil) Allergy (Unknown, Verified 03/21/25 10:41) Hives oxycodone Allergy (Unknown, Verified 03/21/25 10:41) itchy tapentadol Allergy (Unknown, Verified 03/21/25 10:41) Unknown hydrochlorothiazide Adverse Reaction (Intermediate, Verified 03/21/25 10:41) Confusion alendronate sodium (Fosamax) Adverse Reaction (Unknown, Verified 03/21/25 10:41) Abdominal Pain duloxetine Adverse Reaction (Unknown, Verified 03/21/25 10:41) insomnia and hedache pregabalin Adverse Reaction (Unknown, Verified 03/21/25 10:41) waking tramadol (Ultram) Adverse Reaction (Unknown, Verified 03/21/25 10:41) auforia feeling amlodipine Adverse Reaction (Verified 03/21/25 10:41) tiredness and back pain Do you need a note to return to daycare/school/sports/work: No HPI HPI Comments History of Present Illness Details History - The patient is a 75-year-old female presenting with a urinary tract infection (UTI). - Symptoms include burning upon urination, urgency, frequency, and cloudy urine for two days. - No fever, low back pain, or history of kidney stones reported. - Previous UTIs were e coli. Physical Exam General: Cooperative, healthy appearing, comfortable, no acute distress and well developed Orientation: Patient oriented x3 Limitations: No limitations Head: Normal to inspection Ears: Hearing grossly normal bilaterally Face and sinus: Normal facial exam Neck: Normal visual inspection and Yes full ROM Respiratory: Normal respiratory effort and able to speak in complete sentences. Skin: No rashes or lesions noted Neuro: Patient oriented x3 [facility] Medical History (Updated 03/21/25 @ 11:08 by Raya Booth PA-C) Age related osteoporosis Vitamin D deficiency Annual physical exam HTN (hypertension) Multinodular goiter Hyperlipidemia Osteopenia Broken heart syndrome Depression Cloudy urine Surgical History H/O lumbosacral spine surgery S/P MARICARMEN (total abdominal hysterectomy) No pertinent past surgical history Family History Father HTN (hypertension) Mother No problems noted. Social History Housing: Apartment Alcohol intake: never Patient Tobacco Use Status: Former Tobacco user e-Cigarette/Vaping Use: Never Used Patient : No Current occupational status: retired and disabled Cognitive needs: No Hearing needs: No Vision needs: Yes Review of Systems Const All systems reviewed & are unremarkable except as noted in HPI and below Physical Exam Vital Signs: Last Vital Signs Temp 98.0 F 03/21/25 10:32 Pulse 51 03/21/25 10:32 BP 147/82 H 03/21/25 10:32 Pulse Ox 99 03/21/25 10:32 Oxygen Delivery Method Room Air 03/21/25 10:32 BMI result Body Mass Index 24.4 Assessment & Plan Assessment & Plan (1) UTI (urinary tract infection): Code(s): N39.0 - Urinary tract infection, site not specified Qualifiers: Urinary tract infection type: acute cystitis Hematuria presence: with hematuria Qualified Code(s): N30.01 - Acute cystitis with hematuria Plan: Plan Patient was informed and verbally consented to the use of an ambient scribe for clinic note documentation during this visit. Urinary Tract Infection (Uti) - UA with 1+ leuks, negative nitrties, 3+ blood - Cefuroxime prescribed twice daily for five days. - Monitor for fever or worsening symptoms and report if they occur. - Urine culture to confirm bacterial identification and antibiotic efficacy. Orders: Orders Urine Culture Today N39.0 - Urinary tract infection, site not specified Medications: New cefuroxime axetil 500 mg PO Q12H 10 tabs 0RF Coding Level of Care Code Est Pt Level 3 (79083) Diagnoses Acute cystitis with hematuria N30.01 Urinary tract infection type: acute cystitis Hematuria presence: with hematuria
[2025-03-21 10:32] VITALS: BP 147/82; PULSE 51; TEMP 36.7; O2SAT 99; BMI 24.4
--- OUTSIDE RECORDS SUMMARY | 2025-03-21 10:39 | XMS_ITS | Data Portability ---
Author Organization [place] - [facility], Allergy Address [address] [place] [address] Care Team Providers Care Nail Setter Name Role Phone MARYA MCCLAIN Primary Care Provider Assessment Encounter Date Assessment Date Assessment LastModified by Organization Details LastModified Time 12/25/2024 12/25/2024 Patient presents for evaluation of ears. Cerumen successfully removed bilaterally, which patient tolerated well. Otologic exam otherwise unremarkable. Patient reported hearing returned to baseline thereafter and declined audiometric testing. Return in 3-6 months for cerumen removal, followed by audiometric testing. Avoid Q-tips. Avoid or protect against loud noise. Recommend annual audiometric testing, sooner with perceived change. Patient understands to call sooner with any issues that arise. [email or web address] Not available 12/25/2024 11:04:43 Plan of Treatment Reminders Order Date Submit Date Provider Last Modified By Organization Details Last Modified Time Details Appointments Establish ed 15 2024 10:45A M PILI DAVILA PA-C Not available Not available Not available Hearing Test 2024 11:00A M Hearing Test Not available Not available Not available Lab None recorded. Referral None recorded. Procedures None recorded. Surgeries None recorded. Imaging None recorded. Medication Orders None recorded. Patient TargetsNo targets recorded. Patient InstructionsNo instructions recorded. Reason for Referral None Reported. Problems Name Problem SNOMED Code Status Onset Date Resolution Date Notes Provider Name and Address Organization Details Recorded Time Impacted cerumen of bilateral ears [id number] 08 Active 2024 KAM GAINES PA-C [address], [place], [address] , [facility] - [facility] 11:04:21 Problem Notes None recorded. Procedures Surgical History Date Name Laterality Status Provider Name and Address Organization Details Recorded Time 12/26/19 25 Cerumen removal without microscope bilat completed KAM GAINES PA-C [address] [place] [address],[address], [address], [place] - [facility] 12/25/2024 11:02:59 Lumbar Spine Surgery completed Jo Burris [place] - [facility] 12/25/2024 11:02:22 Cervical Spine Surgery completed Jo Burris [place] - [facility] 12/25/2024 11:02:33 lumbar spinal fusion completed Jo Burris [place] - [facility] 12/25/2024 11:03:18 Hysterectomy completed Jo Burris [place] - [facility] 12/25/2024 11:03:36 repair of stress incontinence by suprapubic sling completed Jo Burris [place] - [facility] 12/25/2024 11:04:04 Imaging Results None recorded. Procedure Notes None recorded. Medical Equipment None Reported. Allergies Allergen ID Allergen Name Allergen Category Reaction Reaction Severity Criticality Documentation Date Start Date Code Code System Note Provider Name and Address Organization Details Recorded Time [id number] hydrochlo rothiazid e medicatio n Not available Not available Not available 12/25/2024 5487 RxNorm Jo Motyka sanchez [place] - [facility] 5 10:56:59 608149 Ultram medicatio n Not available Not available Not available 12/25/2024 49129 6 RxNorm Jo Motyka null, [place] - [facility] 5 10:57:06 821178 Elavil medicatio n Not available Not available Not available 12/25/2024 48588 RxNorm Jo Motyka null, [place] - [facility] 5 10:57:17 513609 Rhinocort medicatio n Not available Not available Not available 12/25/2024 27032 8 RxNorm Jo Motyka sanchez [place] - [facility] 5 10:57:36 143649 Lyrica medicatio n Not available Not available Not available 12/25/2024 29789 1 RxNorm Jo Jaswinderyka null, [place] - [facility] 5 10:58:01 351892 Cymbalta medicatio n Not available Not available Not available 12/25/2024 24284 4 RxNorm Jo Jaswinderyka null, [place] - [facility] 5 10:58:12 444724 imipramin e Not available Not available Not available Not available 12/25/2024 5691 RxNorm Jo Motyka null, [place] - [facility] 5 10:58:52 385360 tapentado l medicatio n Not available Not available Not available 12/25/2024 27514 0 RxNorm Jo Jaswinderyka null, [place] - [facility] 5 10:59:54 393602 Dilaudid medicatio n Not available Not available Not available 12/25/2024 68097 3 RxNorm Jo Motyka null, [place] - [facility] 5 11:00:06 576342 midodrine medicatio n Not available Not available Not available 12/25/2024 6963 RxNorm Jo Jaswinderyka null, [place] - [facility] 5 11:00:25 Medications Name Sig Start Date Stop Date Status Note LastModified by Organization Details LastModified Time hydralazine 10 mg tablet TAKE ONE TABLET BY MOUTH TWICE A DAY active Not Available Not Available No t Available venlafaxine ER 75 mg capsule,exte nded release 24 hr TAKE ONE CAPSULE BY MOUTH EVERY DAY active Not Available Not Available No t Available metoprolol succinate ER 50 mg tablet,exten ded release 24 hr TAKE ONE AND ONE-HALF TABLETS BY MOUTH TWICE A DAY active Not Available Not Available No t Available lisinopril 20 mg tablet TAKE ONE TABLET BY MOUTH EVERY DAY 12/25 completed Not Available Not Available Not Available simvastatin 40 mg tablet TAKE ONE TABLET BY MOUTH DAILY AT BEDTIME active Not Available Not Available No t Available pyridostigmi ne bromide 60 mg tablet TAKE 1 TABLET BY MOUTH EVERY MORNING, 1 TABLET AT NOON, THEN TAKE 1 TABLET BEFORE BEDTIME active Not Available Not Available No t Available lisinopril 40 mg tablet TAKE ONE TABLET BY MOUTH EVERY DAY active Not Available Not Available No t Available trospium 20 mg tablet TAKE ONE TABLET BY MOUTH EVERY DAY active Not Available Not Available No t Available Vitals Date Recorded Body height Body mass index (BMI) Body weight Provider Name and Address Organization Details Last Updated DateTime 12/25/2024 167.64 cm 25 kg/m2 81170.82 g Jo Burris [place] - [facility] 12/25/2024 10:55:47 Social History None recorded. Functional Status Question Answer Note LastModified by Organization D etails LastModified Time What is your level of alcohol consumption? None [email or web address] Information not available 12/25/2024 Mental Status None recorded. Family History Nothing Reported. Medical History Condition Response Allergies/Hayfever N Heart Problems N Anxiety Y Tonsil Infections N Emphysema N Migraines N Thyroid Problems N Glaucoma N Depression Y COPD N Developmental Delay N Nasal or Sinus Problems N Anemia N Immune System Disorder N Anesthesia Complications N Heart Attack ([place]) N Other Skin Condition N Diabetes N Rhinitis N Bleeding Disorder N Food Allergy N Arthritis Y Hearing Loss N Hyperlipidemia N Cancer N Stroke N Dementia N Nasal polyps N Asthma N High Cholesterol N Sleep Disorder N GERD/Reflux N Liver Disease N Headaches Y Fibromyalgia N Hypertension Y Speech Delay N Kidney Disease N Gynecological HistoryNo gynecological history recorded. Obstetrics History GPAL:G 0 P 0 0 0 0 Past Encounters Encounter ID Performer Location Encounter Start Date Encounter Closed Date Diagnosis/Indication Diagnosis SNOMED-CT Code Diagnosis ICD10 Code Diagnosis Note [id number] KAM GAINES PA-C [facility] [address] [address] 12/25/2024 10:35:56 12/25/2024 11:06:15 Impacted cerumen of bilateral ears [id number] 386582 H61.23 Health Concerns Section Related Observation LastModified by Organization Detai ls LastModified Time None Recorded Concern Status LastModified by Organization Details LastModified Time None Recorded Advance Directives Directive None Recorded Payers Insurance Date Sequence Insurance Name Policy Number Policy Charlton Covered Member ID Charlton Member ID Guarantor Name 02/11/2025 1 [place] [employer] Linette Bonilla [id number] Linette Bonilla 02/11/2025 2 [place] [id number] Linette Bonilla [id number] Linette Bonilla Notes Date Note Type Note Provider Name and Address Organization Details Recorded Time 12/25/2024 text/html 74 year old faheem castellanos presents for cerumen removal. Historically has had to have cerumen impaction removed from the right ear. Previous provider retired. She feels her hearing is down a little today on the right, attributes to cerumen, feels her hearing is good at baseline. There is no otalgia nor otorrhea. No tinnitus, no vertigo. No hearing test since 2019. No history of recurrent otitis and no otologic surgeries. Notes she takes baby aspirin. KAM GAINES PA-C [address] [place] [address], [place], [address], [facility] - [facility] 12/25/2024 11:05:04 OBGyn Episode No OBEpisode recorded.
--- OUTSIDE RECORDS SUMMARY | 2025-03-21 10:39 | XMS_ITS | Clinical Summary ---
Author Organization [facility] Address [address] [place] [address] Care Team Providers Care Broacher Name Role Phone Alison Christianson Primary Care Provider [phone] Allergies Active Allergy Reactions Criticality Noted Date Comments Alendronic Acid 04/25/2018 bloating Amitriptyline Hives 12/20/2008 Amlodipine 02/11/2023 foggy head Budesonide 01/24/2023 Other Reaction(s): REDNESS,SWELLING Hydromorphone 10/21/2023 Duloxetine Other (see comments) 12/20/2008 Other Reaction(s): MATHEWS,INSOMNIA, Imipramine Insomnia, weight gain Hydrochlorothiazide Other (see comments) ,GI intolerance 11/08/2022 Brain fog Imipramine Other (see comments) 05/15/2010 Other Reaction(s): sob Increased heart heart Midodrine 02/06/2024 Oxycodone Hcl Itching 01/05/2018 oxycontin only Pregabalin Other (see comments) 12/20/2008 Other Reaction(s): ? REACTION,WT GAIN, WEIGHT GAIN Fatigue, weight gain Tapentadol Diarrhea,Itching 01/05/2018 Tramadol 01/24/2023 Other Reaction(s): EUPHORIA Medications calcium carbonate-vitam in D3 600 mg-5 mcg (200 unit) per tablet Take 1 tablet by mouth in the morning. Active aspirin 81 mg EC tablet Take 81 mg by mouth in the morning. Active metoprolol succinate XL (Toprol XL) 50 mg 24 hr tablet Take 75 mg by mouth every 12 (twelve) hours. 2 Active simvastatin (ZOCOR) 40 mg tablet Take 40 mg by mouth nightly. 9 Active trospium (SANCTURA) 20 mg tablet Take 20 mg by mouth in the morning. 2 Active venlafaxine XR (EFFEXOR-XR) 75 mg 24 hr capsule Take 75 mg by mouth in the morning. Active cholecalciferol , vitamin D3, (cholecalcifero l) 25 mcg (1,000 unit) tablet Take 1,000 Units by mouth in the morning. Active Bacillus coagulans (PROBIOTIC, B. COAGULANS, ORAL) Take by mouth. Active docusate sodium (COLACE) 100 mg capsule Take 100 mg by mouth in the morning and 100 mg before bedtime. Active cyanocobalamin 500 mcg tablet Take 500 mcg by mouth in the morning. Active polyethylene glycol (GLYCOLAX) 17 gram packet Take 17 g by mouth in the morning. Active acetaminophen (TYLENOL) 500 mg tablet Take 500 mg by mouth every 6 (six) hours as needed. Pt taking every 8-12 hours Active lisinopriL (PRINIVIL) 20 mg tablet Take 40 mg by mouth in the morning. 3 Active hydrALAZINE (APRESOLINE) 10 mg tablet Take 10 mg by mouth in the morning and 10 mg before bedtime. Active pyridostigmine (Mestinon) 60 mg tablet Take 1 tablet (60 mg total) by mouth in the morning and 1 tablet (60 mg total) at noon and 1 tablet (60 mg total) in the evening and 1 tablet (60 mg total) before bedtime. 120 tablet 11 5 02/16/20 26 Active midodrine (PROAMATINE) 5 mg tablet Take 5 mg by mouth in the morning and 5 mg at noon and 5 mg before bedtime. 2-3 times a day. 02/21/20 25 Discontinu ed(Therapy completed) pyridostigmine (Mestinon) 60 mg tablet Take 1 tablet (60 mg total) by mouth in the morning and 1 tablet (60 mg total) at noon and 1 tablet (60 mg total) before bedtime. 90 tablet 4 02/21/20 25 Discontinu ed(Reorder ) melatonin tablet Take 3 mg by mouth. 3 02/21/20 25 Discontinu ed(Therapy completed) Active Problems Problem Noted Date Diagnosed Date Orthostatic hypotension 01/31/2024 Kyphosis of thoracolumbar region, unspecified ky phosis type 06/28/2023 Palpitations 11/08/2022 Overview (02/06/2024): -No arrhythmogenic cause found -May be subjective awareness of sinus tachycardia -Responds to Toprol - She reports now she is taking it twice daily Last Assessment & Plan: Continue current Toprol XL as above. Takotsubo cardiomyopathy 04/22/2021 Overview (02/06/2024): -Presented with exertional dyspnea and palpitations in April 2010 to the hospital and EKG showed ST elevations in the lateral and inferior leads with mildly elevated troponin -Cardiac cath showed normal coronaries while echo showed classic akinesis of the apical segments with ballooning -With medical management she completely recovered LV function with most recent echocardiogram in June 2018 showing normal LV cavity size, wall thickness and systolic function with ejection fraction 60-65%, mild left atrial enlargement, normal RV size and systolic function, mild mitral regurgitation with myxomatous mitral valve leaflets, no other significant valve disease - Had an updated echocardiogram in light of recent dysautonomia symptoms in July 2023 at [facility] during a hospitalization which showed preserved ejection fraction of 55 to 60% with normal regional wall motion, normal RV size and systolic function, normal left ventricular diastolic function, no hemodynamically significant valve disease but incidental note of a large Chiari network Last Assessment & Plan: Tried to reassure her that this process has nothing to do with her heart or Takotsubo syndrome. I believe this is purely a dysautonomia. There is no benefit to repeating an echo as she just had one done in July 2023 and it is not going to blade changer. She is euvolemic on exam without any clear cardiac symptoms. Atypical chest pain and shortness of breath is likely part and parcel of the orthostatic syndrome. Hypertension 12/15/2011 Overview (02/06/2024): - Has been intolerant of many different medications - Started a low-dose amlodipine in addition to pre-existing Toprol-XL and lisinopril Last Assessment & Plan: Historically, the patient's blood pressure has been somewhat difficult to treat, finding medications that work for her and do not leave her feeling drained and washed out. Now however, we are combating orthostatic hypotension following her spinal surgery. See below. Hyperlipidemia 12/20/2008 Overview (02/06/2024): Last Assessment & Plan: Continue current simvastatin Encounters Date Type Department Care Team Description 02/20/2025 2:30 PM EDT Office Visit [facility] Department of Neurology [address] [place] [address] Kostas Torres MD Orthostatic hypotension (Primary Dx) from Last 3 Months Family History Relation Status Comments Father Mother Social History Tobacco Use Types Packs/Day Years Used Date Smoking Tobacco: Former Cigarettes Passive Smoke Exposure: Past Smokeless Tobacco: Never Tobacco Cessation:Counseling Given: Not Answered Alcohol Use Standard Drinks/Week Comments Not Currently 0 (1 standard drink = 0.6 oz pur e alcohol) sober 28 [facility] Utilities Answer Date Recorded In the past 12 months has [employer], [employer], oil, or water [employer] threatened to shut off services in your home? No 03/28/2024 Overall Financial Resource Strain (CARDIA) Answe r Date Recorded How hard is it for you to pa y for the very basics like food, housing, medical care, and heating? Not hard at all 03/28/2024 Hunger Vital Sign Answer Date Recorded Within the past 12 months, y ou worried that your food would run out before you got the money to buy more. Never true 03/28/20 24 Ran Out of Food in the Last Year Not on file 03/28/2024 PRAPARE - Transportation Answer Date Re corded In the past 12 months, has l ack of transportation kept you from medical appointments or from getting medications? No 03/28/2024 Lack of Transportation (Non-Medical) Not on file 03/28/2024 Housing Stability Vital Sign Answer Abhishek e Recorded In the last 12 months, was t here a time when you were not able to pay the mortgage or rent on time? No 03/28/2024 In the past 12 months, how m any times have you moved where you were living? 0 03/28/2024 At any time in the past 12 m [facility], were you homeless or living in a skilled nursing (including now)? No 03/28/2024 Comments No Sex and Gender Information Value Date Recorded Sex Assigned at Not on file Legal Sex Female 11:35 AM EST Gender Identity Not on file Sexual Orientation Not on file COVID-19 Exposure Response Date Recorded In the last 10 days, have yo u been in contact with someone who was confirmed or suspected to have Coronavirus/COVID-19? No / Unsure 02/20/2025 1:29 PM EDT Last Filed Vital Signs Vital Sign Reading Time Taken Comments Blood Pressure 175/100 02/20/2025 1:54 PM EDT Pulse 106 02/20/2025 1:54 PM EDT Temperature 36.6 C (97.8 F) 07/01/2023 7:00 AM EDT Respiratory Rate 16 02/20/2025 1:54 PM EDT Oxygen Saturation 99% 02/06/2024 11:19 AM EDT Inhaled Oxygen Concentration - - Weight 73.3 kg (161 lb 8 oz) 02/20/2025 1:54 PM EDT Height 167.6 cm (5' 6 ) 02/20/2025 1:54 PM EDT Body Mass Index 26.07 02/20/2025 1:54 PM EDT Plan of Treatment Upcoming Encounters Date Type Department Care Team (Late st Contact Info) Description 08/21/2025 2:00 PM EST Office Visit [facility] Department of Neurology [address] [phone] Kostas Torres MD [address] [place], [place] Health Maintenance Due Date Last Done Comments Bone Density Screening 1950 CT Colonography 1950 Colonoscopy 1950 Colorectal Cancer Screening 1950 FIT-DNA (Cologuard) 1950 FIT 1950 FOBT 1950 Flex Sigmoidoscopy - 5y 1950 HIV Screening 1950 Medicare Annual Wellness (AWV) 1950 Hepatitis C Screening 02/19/1968 Zoster Vaccines (1 of 2) 02/19/2000 Pneumococcal Vaccine, 50+ Ye ars (2 of 2 - PPSV23) 11/18/2017 11/18/2016 DTaP,Tdap,and Td Vaccines (2 - Td or Tdap) 10/15/2019 10/15/2009 COVID-19 Vaccine (1 - 2023-2 5 season) 2024 Influenza Vaccine (#1) 2025 HPV Vaccines Aged Out No longer eligi ble based on patient's age to complete this topic Hepatitis A Vaccines Aged Out No long er eligible based on patient's age to complete this topic Meningococcal Vaccine Aged Out No ethel david eligible based on patient's age to complete this topic Medical Devices Implanted Type Area Medical Office Worker Device Identifier Shelf Expiration Date Model / Serial / Lot 2.8cc, (Pk Of 2) 1in X 2in, Smallinfuse Bone Graft Kit - [id number] Implanted:Qty: 1 on 06/28/2023 by Javier Brink MD at [facility] Bone Graft Substitute Spine Lumbar [employer] - Sofamor Danek 02/03/2025 [id number] / / [id number] 10cc Alphagraft Dbm Fiber - [id number] Implanted:Qty: 1 on 06/28/2023 by Javier Brink MD at [facility] Bone Spine Lumbar [employer] [id number] / / 1 - 8 Mm, 30 Cc, Readigraft Cancellous Chips, Preservon - [id number] Implanted:Qty: 1 on 06/28/2023 by Javier Brink MD at [facility] Bone Spine Lumbar [facility] 02/13/2028 PCAN30 / [id number] / [id number] 1 - 8 Mm, 30 Cc, Readigraft Cancellous Chips, Preservon - [id number] Implanted:Qty: 1 on 06/28/2023 by Javier Brink MD at [facility] Bone Spine Lumbar [facility] 02/13/2028 PCAN30 / [id number] / [id number] Amp Lif Two Screw Plate, 08 And Center Screw, 15mm - [id number] Implanted:Qty: 1 on 06/28/2023 by Javier Brink MD at [facility] Ortho - Spinal Implant Spine Lumbar [employer] 09/11/2025 116-2-3-0 8-S / / [id number] 5.5mm X 35mm Amp Lif Bone Screw - [id number] Implanted:Qty: 1 on 06/28/2023 by Javier Brink MD at [facility] Ortho - Spinal Implant Spine Lumbar [employer] [id number] 5-2-S / / Invictus Modular Polyaxial Tulip - Sn/A - [id number] Implanted:Qty: 1 on 06/28/2023 by Javier Brink MD at [facility] Ortho - Spinal Implant N/A: Back [employer] 06/28/2024 [id number] / N/A / N/A 5.5 X 300mm Invictus Mis Straight Spinal Nadir, Ti - [id number] Implanted:Qty: 3 on 06/28/2023 by Javier Brink MD at [facility] Ortho - Spinal Implant Spine Lumbar [employer]. 19950-94- 300 / / Alphatec Set Screw 02167 - [id number] Implanted:Qty: 20 on 06/28/2023 by Javier Brink MD at [facility] Ortho - Spinal Implant Spine Lumbar [employer] Inc. [id number] / / Invictus Modular Polyaxial Tulip - [id number] Implanted:Qty: 11 on 06/28/2023 by Javier Brink MD at [facility] Ortho - Spinal Implant Al[employer] Sp[employer] Inc. [id number] / / Left Connectors Duplicate, Please Transition To Cat 03475-10 - [id number] Implanted:Qty: 2 on 06/28/2023 by Javier Brink MD at [facility] Ortho Accessory [employer]. [id number](DUP E) / / [id number], 30 Degree Identiti Lif-Hl Porous Ti Spacer Implanted:Qty: 1 on 06/28/2023 by Javier Brink MD at [facility] [employer] 01/31/2025 [id number] / / [id number] 6.5mm X 50mm Invictus Modular Spinal Shank Screw - [id number] Implanted:Qty: 4 on 06/28/2023 by Javier Brink MD at [facility] N/A: Spine Lumbar [employer] [id number] -[id number] / / 7.5mm X 40mm Invictus Cannulated Extended Tab Polyaxial Reduction Screw - [id number] Implanted:Qty: 2 on 06/28/2023 by Javier Brink MD at [facility] N/A: Spine Lumbar [employer]. [id number] 040 / / 8.5mm X 45mm Invictus Cannulated Modular Spinal Screw Shank - [id number] Implanted:Qty: 2 on 06/28/2023 by Javier Brink MD at [facility] N/A: Spine Lumbar [employer]. [id number] -[id number] / / 6.5mm X 40mm Invictus Cannulated Modular Screw Shank - [id number] Implanted:Qty: 4 on 06/28/2023 by Javier Brink MD at [facility] N/A: Spine Thoracic [employer]. [id number] -[id number] / / 6.5mm X 45mm Invictus Cannulated Modular Screw Shank - [id number] Implanted:Qty: 4 on 06/28/2023 by Javier Brink MD at [facility] N/A: Spine Lumbar [employer]. [id number] -045 / / 15mm Invictus Connector Mod Sat Nadir Right - [id number] Implanted:Qty: 2 on 06/28/2023 by Javier Brink MD at [facility] Alphatec Spine[employer] Inc. [id number] / / Explanted Type Area Medical Office Worker Device Identifier Shelf Expiration Date Model / Serial / Lot Previous Hardware (4 Screws, 2 Rods, 4 Set Screws) Explanted:Qty: 10 on 06/28/2023 by Javier Brink MD at [facility] N/A: Back [employer] N/A / / Insurance MEDICARE PART A & B [facility] MEDICARE PART A & B [place] - OUT OF STATE Advance Directives For more information, please contact: [phone] Documents on File Type Date Recorded Patient Camp Assistant Expl anation Advance Directives 06/28/2023 9:05 AM * Full Code (Latest Code Status on File) Date Activated Date Inactivated Comments 06/28/2023 5:36 PM 07/01/2023 2:49 PM Care Teams Broacher Relationship Specialty Start Date End Date Alison Christianson [address] [place] [address] PCP - General Internal Medicine 06/20/23
--- OUTSIDE RECORDS SUMMARY | 2025-03-21 10:39 | XMS_ITS | Clinical Summary ---
Author Organization [facility], Address [address] [place] [address] [place] [address] Phone Care Team Providers Care Commercial Title Examiner Name Role Phone Alison Christianson MD Primary Care Provider [phone] Social History Tobacco Use Types Packs/Day Years Used Date Smoking Tobacco: Never Assessed Comments Unknown Sex and Gender Information Value Date Recorded Sex Assigned at Not on file Legal Sex Female 11:08 AM EST Gender Identity Not on file Sexual Orientation Not on file Plan of Treatment Health Maintenance Due Date Last Done Comments Breast Cancer Screening 1950 Colorectal Cancer Screening: Annual FOBT 1999 Colorectal Cancer Screening: Colonoscopy 1999 Colorectal Cancer Screening: Sigmoidoscopy 1999 Pneumococcal Vaccine: 50+ Ye ars (2 of 2 - PPSV23, PCV20, or PCV21) 01/13/2017 11/18/2016 Influenza Vaccine (#1) 2025 Hepatitis B Vaccine Aged Out No longe r eligible based on patient's age to complete this topic Insurance Medicare [facility] Care Teams Commercial Title Examiner Relationship Specialty Start Date End Date Alison Christianson MD [facility] [place] [address] PCP - General Internal Medicine 07/25/23
--- OUTSIDE RECORDS SUMMARY | 2025-03-21 10:40 | XMS_ITS ---
Author Name [facility] Organization Unknown Results Test Name/Text Value Interpretation Date Range Source CHLORIDE 104.0 mmol/L Normal 07/01/2023 100 - 111 [facility] POTASSIUM 3.4 mmol/L Below low normal 07/01/2023 3.6 - 5.1 [facility] SODIUM 139.0 mmol/L Normal 07/01/2023 137 - 144 [facility] GLOMERULAR FILTRATION RATE ML/MIN/1.73 SQ M.PREDICTED 95.0 mL/min/1.73m*2 Normal 07/01/2023 60 - [facility] UREA NITROGEN 7.0 mg/dL Below low normal 07/01/2023 8 - 24 [facility] ANION GAP 8.0 mmol/L Normal 07/01/2023 3 - 11 [facility] CREATININE 0.6 mg/dL Normal 07/01/2023 0.6 - 1.2 [facility] GLUCOSE 109.0 mg/dL Normal 07/01/2023 70 - 200 [facility] BICARBONATE 27.0 mmol/L Normal 07/01/2023 23 - 32 [facility] CALCIUM, TOTAL 8.3 mg/dL Below low normal 07/01/2023 8.4 - 1 0.2 [facility] HEMOGLOBIN 9.1 g/dL Below low normal 07/01/2023 12 - 16 [facility] MCHC 31.9 g/dL Below low normal 07/01/2023 32 - 36 [facility] RBC DISTRIBUTION WIDTH 14.3 % Normal 07/01/2023 11.6 - 14.8 [facility] MCV 99.0 fL Normal 07/01/2023 80 - 100 [facility] RED CELL COUNT 2.88 10*6/ L Below low normal 07/01/2023 3.8 - 5.2 [facility] WHITE CELL COUNT 11.2 10*3/uL Above high normal 07/01/2023 3 .6 - 11 [facility] MCH 31.6 pg Normal 07/01/2023 26 - 34 [facility] PLATELET COUNT 121.0 10*3/uL Below low normal 07/01/2023 150 - 440 [facility] HEMATOCRIT 28.5 % Below low normal 07/01/2023 35 - 47 [facility] RBC DISTRIBUTION WIDTH 14.4 % Normal 06/30/2023 11.6 - 14.8 [facility] HEMOGLOBIN 9.1 g/dL Below low normal 06/30/2023 12 - 16 [facility] RED CELL COUNT 2.91 10*6/ L Below low normal 06/30/2023 3.8 - 5.2 [facility] MCHC 32.2 g/dL Normal 06/30/2023 32 - 36 [facility] MCH 31.3 pg Normal 06/30/2023 26 - 34 [facility] MCV 97.3 fL Normal 06/30/2023 80 - 100 [facility] HEMATOCRIT 28.3 % Below low normal 06/30/2023 35 - 47 [facility] PLATELET COUNT 119.0 10*3/uL Below low normal 06/30/2023 150 - 440 [facility] WHITE CELL COUNT 13.4 10*3/uL Above high normal 06/30/2023 3 .6 - 11 [facility] MAGNESIUM 1.9 mg/dL Normal 06/30/2023 1.8 - 3 [facility] POTASSIUM 3.2 mmol/L Below low normal 06/30/2023 3.6 - 5.1 [facility] ANION GAP 6.0 mmol/L Normal 06/30/2023 3 - 11 [facility] GLUCOSE 84.0 mg/dL Normal 06/30/2023 70 - 200 [facility] SODIUM 140.0 mmol/L Normal 06/30/2023 137 - 144 [facility] CALCIUM, TOTAL 8.0 mg/dL Below low normal 06/30/2023 8.4 - 1 0.2 [facility] GLOMERULAR FILTRATION RATE ML/MIN/1.73 SQ M.PREDICTED 95.0 mL/min/1.73m*2 Normal 06/30/2023 60 - [facility] BICARBONATE 28.0 mmol/L Normal 06/30/2023 23 - 32 [facility] CREATININE 0.6 mg/dL Normal 06/30/2023 0.6 - 1.2 [facility] CHLORIDE 106.0 mmol/L Normal 06/30/2023 100 - 111 [facility] UREA NITROGEN 9.0 mg/dL Normal 06/30/2023 8 - 24 [facility] WHITE CELL COUNT 12.4 10*3/uL Above high normal 06/30/2023 3 .6 - 11 [facility] RED CELL COUNT 2.23 10*6/ L Below low normal 06/30/2023 3.8 - 5.2 [facility] HEMATOCRIT 22.4 % Below low normal 06/30/2023 35 - 47 [facility] HEMOGLOBIN 7.3 g/dL Below low normal 06/30/2023 12 - 16 [facility] MCH 32.7 pg Normal 06/30/2023 26 - 34 [facility] MCHC 32.6 g/dL Normal 06/30/2023 32 - 36 [facility] MCV 100.4 fL Above high normal 06/30/2023 80 - 100 [facility] PLATELET COUNT 115.0 10*3/uL Below low normal 06/30/2023 150 - 440 [facility] RBC DISTRIBUTION WIDTH 12.7 % Normal 06/30/2023 11.6 - 14.8 [facility] GLUCOSE 134.0 mg/dL Normal 06/29/2023 70 - 200 [facility] ANION GAP 6.0 mmol/L Normal 06/29/2023 3 - 11 [facility] GLOMERULAR FILTRATION RATE ML/MIN/1.73 SQ M.PREDICTED 91.0 mL/min/1.73m*2 Normal 06/29/2023 60 - [facility] CHLORIDE 106.0 mmol/L Normal 06/29/2023 100 - 111 [facility] CALCIUM, TOTAL 8.1 mg/dL Below low normal 06/29/2023 8.4 - 1 0.2 [facility] UREA NITROGEN 11.0 mg/dL Normal 06/29/2023 8 - 24 [facility] BICARBONATE 25.0 mmol/L Normal 06/29/2023 23 - 32 [facility] SODIUM 137.0 mmol/L Normal 06/29/2023 137 - 144 [facility] CREATININE 0.7 mg/dL Normal 06/29/2023 0.6 - 1.2 [facility] POTASSIUM 3.9 mmol/L Normal 06/29/2023 3.6 - 5.1 [facility] MCH 31.8 pg Normal 06/29/2023 26 - 34 [facility] RED CELL COUNT 2.83 10*6/ L Below low normal 06/29/2023 3.8 - 5.2 [facility] WHITE CELL COUNT 13.6 10*3/uL Above high normal 06/29/2023 3 .6 - 11 [facility] MCHC 31.9 g/dL Below low normal 06/29/2023 32 - 36 [facility] MCV 99.6 fL Normal 06/29/2023 80 - 100 [facility] HEMATOCRIT 28.2 % Below low normal 06/29/2023 35 - 47 [facility] HEMOGLOBIN 9.0 g/dL Below low normal 06/29/2023 12 - 16 [facility] PLATELET COUNT 137.0 10*3/uL Below low normal 06/29/2023 150 - 440 [facility] RBC DISTRIBUTION WIDTH 12.5 % Normal 06/29/2023 11.6 - 14.8 [facility] POCT TCO2, ARTERIAL 25.0 mmol/L Normal 06/28/2023 23 - 32 [facility] POCT POTASSIUM 4.1 mmol/L Normal 06/28/2023 3.6 - 5.1 [facility] POCT BASE EXCESS, ARTERIAL -1.0 mmol/L Normal 06/28/2023 - [facility] POCT PH, ARTERIAL 7.406 Normal 06/28/2023 7.35 - 7.45 [facility] POCT HEMATOCRIT, ARTERIAL 34.0 %PCV Below low normal 06/28/2023 35 - 47 [facility] POCT SODIUM 139.0 mmol/L Normal 06/28/2023 137 - 144 [facility] POCT SO2, ARTERIAL 100.0 % Normal 06/28/2023 90 - 100 [facility] POCT PO2, ARTERIAL 458.0 mm Hg Above high normal 06/28/2023 80 - 100 [facility] POCT IONIZED CALCIUM 1.2 mmol/L Normal 06/28/2023 1.14 - 1.33 [facility] POCT HEMOGLOBIN, ARTERIAL 11.6 g/dL Below low normal 06/28/2023 12 - 16 [facility] ISTAT SAMPLE TYPE ARTERIAL Normal 06/28/2023 [facility] POCT HCO3, ARTERIAL 24.0 mmol/L Normal 06/28/2023 20 - 26 [facility] POCT GLUCOSE 181.0 mg/dL Normal 06/28/2023 70 - 200 [facility] POCT PCO2, ARTERIAL 37.5 mm Hg Normal 06/28/2023 35 - 42 [facility] POCT HEMATOCRIT, ARTERIAL 37.0 %PCV Normal 06/28/2023 35 - 47 [facility] POCT SO2, ARTERIAL 100.0 % Normal 06/28/2023 90 - 100 [facility] POCT PCO2, ARTERIAL 37.3 mm Hg Normal 06/28/2023 35 - 42 [facility] POCT SODIUM 139.0 mmol/L Normal 06/28/2023 137 - 144 [facility] POCT POTASSIUM 4.3 mmol/L Normal 06/28/2023 3.6 - 5.1 [facility] POCT PH, ARTERIAL 7.418 Normal 06/28/2023 7.35 - 7.45 [facility] POCT BASE EXCESS, ARTERIAL 0.0 mmol/L Normal 06/28/2023 - [facility] POCT GLUCOSE 164.0 mg/dL Normal 06/28/2023 70 - 200 [facility] POCT PO2, ARTERIAL 297.0 mm Hg Above high normal 06/28/2023 80 - 100 [facility] POCT HEMOGLOBIN, ARTERIAL 12.6 g/dL Normal 06/28/2023 12 - 16 [facility] ISTAT SAMPLE TYPE ARTERIAL Normal 06/28/2023 [facility] POCT TCO2, ARTERIAL 25.0 mmol/L Normal 06/28/2023 23 - 32 [facility] POCT HCO3, ARTERIAL 24.0 mmol/L Normal 06/28/2023 20 - 26 [facility] POCT IONIZED CALCIUM 1.21 mmol/L Normal 06/28/2023 1.14 - 1.33 [facility] POCT HEMOGLOBIN, ARTERIAL 11.6 g/dL Below low normal 06/28/2023 12 - 16 [facility] POCT TCO2, ARTERIAL 28.0 mmol/L Normal 06/28/2023 23 - 32 [facility] POCT PCO2, ARTERIAL 43.1 mm Hg Above high normal 06/28/2023 35 - 42 [facility] POCT PH, ARTERIAL 7.395 Normal 06/28/2023 7.35 - 7.45 [facility] ISTAT FIO2 0.5 % Normal 06/28/2023 [facility] POCT BASE EXCESS, ARTERIAL 1.0 mmol/L Normal 06/28/2023 - [facility] POCT HEMATOCRIT, ARTERIAL 34.0 %PCV Below low normal 06/28/2023 35 - 47 [facility] POCT PO2, ARTERIAL >500.0 mm Hg Above high normal 06/28/2023 80 - 100 [facility] POCT SO2, ARTERIAL Normal 06/28/2023 [facility] ISTAT SAMPLE TYPE ARTERIAL Normal 06/28/2023 [facility] POCT IONIZED CALCIUM 1.25 mmol/L Normal 06/28/2023 1.14 - 1.33 [facility] POCT HCO3, ARTERIAL 26.0 mmol/L Normal 06/28/2023 20 - 26 [facility] POCT SODIUM 140.0 mmol/L Normal 06/28/2023 137 - 144 [facility] POCT GLUCOSE 115.0 mg/dL Normal 06/28/2023 70 - 200 [facility] POCT POTASSIUM 3.8 mmol/L Normal 06/28/2023 3.6 - 5.1 [facility] ABO GROUP (TYPE) IN BLOOD A Normal 06/28/2023 [facility] RH TYPE IN BLOOD POS Normal 06/28/2023 [facility] RH TYPE IN BLOOD POS Normal 06/20/2023 [facility] ABO GROUP (TYPE) IN BLOOD A Normal 06/20/2023 [facility] ANTIBODY SCREEN NEG Normal 06/20/2023 [facility] History of Medication Use Medication Directions Dispensed Refills Start Date End Date Stat acetaminophen (TYLENOL) 325 mg tablet Take 975 mg by mouth Every 6 (six) hours for 10 days. 06/30/2023 07/11/2023 active docusate sodium (COLACE) 100 mg capsule Take 1 capsule (100 mg total) by mouth in the morning and 1 capsule (100 mg total) before bedtime. Do all this for 10 days. 06/30/2023 07/11/2023 active lisinopriL (PRINIVIL) 40 mg tablet Take 40 mg by mouth. 01/18/2023 02/06/2024 active simvastatin (ZOCOR) 40 mg tablet Take 40 mg by mouth. 12/05/2018 active Allergies Allergen Reaction Severity Comment Documented Date Source Status MIDODRINE 02/06/2024 [facility] active HYDROMORPHONE 10/21/2023 [facility] active AMLODIPINE foggy head 02/11/2023 [facility] active TRAMADOL Other Reaction(s): EUPHORIA 01/24/2023 [facility] active HYDROCHLOROTHIAZIDE GI INTOLERANCEOTHER (SEE COMMENTS) Brain fog 11/08/2022 [facility] active ALENDRONIC ACID bloating 04/25/2018 [facility] acti ve TAPENTADOL ITCHING 01/05/2018 [facility] active IMIPRAMINE OTHER (SEE COMMENTS) Increased heart heart, ,Other Reaction(s): sob 05/15/2010 [facility] active PREGABALIN OTHER (SEE COMMENTS) Fatigue, weight gain,Other Reaction(s): ? REACTION,WT GAIN, WEIGHT GAIN 12/20/2008 [facility] active AMITRIPTYLINE HIVES [facility] BUDESONIDE Other Reaction(s): REDNESS,SWEL LING [facility] DULOXETINE OTHER (SEE COMMENTS) Insomnia, weight gain, ,Other Reaction(s): MATHEWS,INSOMNIA, Imipramine [facility] OXYCODONE HCL ITCHING oxycontin only [facility] Problems Problem Status Onset Date Problem Type Date of Resolution Source Orthostatic hypotension active 2024-01-31 ProblemAct [facility] Takotsubo cardiomyopathy active 2021-04-22 ProblemAct [facility] Hyperlipidemia active 2008-12-20 ProblemAct [facility] Palpitations active 2022-11-08 ProblemAct [facility] Kyphosis of thoracolumbar region, unspecified kyphosis type active 2023-06-28 ProblemAct [facility] History of lumbar fusion active EncounterDiagnosisAct [facility] Hypertension active 2011-12-15 ProblemAct [facility] Encounters Encounter Type Encounter Reason Primary Diagnosis Location Date Ambulatory Orthostatic hypotension Orthostatic hypotension [facility] 02/20/2025 Ambulatory Follow-up Follow-up [facility] 10/18/2024 Ambulatory Arthrodesis status Arthrodesis status [facility] 06/18/2024 Ambulatory Arthrodesis status Arthrodesis status [facility] 06/18/2024 Ambulatory Follow-up Follow-up [facility] 03/28/2024 Ambulatory Orthostatic hypotension Orthostatic hypotension [facility] 02/06/2024 Ambulatory New Patient New Patient [facility] 01/27/2024 Ambulatory Arthrodesis status Arthrodesis status [facility] 12/19/2023 Ambulatory Arthrodesis status Arthrodesis status [facility] 12/19/2023 Ambulatory Unspecified kyphosis , thoracolumbar hugo Unspecified kyphosis, thoracolumbar region [facility] 12/19/2023 Ambulatory Arthrodesis status Arthrodesis status [facility] 10/21/2023 Ambulatory Arthrodesis status Arthrodesis status [facility] 10/21/2023 Inpatient Unspecified kyphosis , thoracolumbar hugo Unspecified kyphosis, thoracolumbar region [facility] 06/28/2023 Inpatient [facility] 06/28/2023 Ambulatory [facility] 06/28/2023 Ambulatory [facility] 06/22/2023 Ambulatory [facility] 06/20/2023 Ambulatory Unspecified kyphosis , thoracolumbar hugo Unspecified kyphosis, thoracolumbar region [facility] 06/20/2023 Ambulatory Radiculopathy, l umbar region [facility] 01/24/2023 Ambulatory Radiculopathy, l umbar region [facility] 01/24/2023 Ambulatory [facility] 01/24/2023 Ambulatory [facility] 01/24/2023 Ambulatory [facility] 01/24/2023 Ambulatory [facility] 01/24/2023 Ambulatory Radiculopathy, l umbar region [facility] 01/24/2023 Care Team Organization Name Specialty Phone Email Start Date End Da te [facility] MARYA MCCLAIN Primary Care 06/20/2006/20/2023 [facility] PCP,No Primary Care 01/24/2023 [facility] NO PCP Primary Care 01/24/2023
== END 2025-03-21 11:12 | disposition home or self-care (01) ==
PROVIDERS: PCP Internal Medicine; Visit Provider Physician Assistant
DX: N30.01 Acute cystitis with hematuria (principal)

== ENCOUNTER 2025-03-21 10:11 | Outpatient (REF) | payer MEDICARE, SELFPAY ==
--- OUTSIDE RECORDS SUMMARY | 2025-03-21 11:53 | XMS_ITS | Patient Health Record ---
Author Organization [facility] Address [address] [place] [address] Care Team Providers Care Sales And Marketing Associate Name Role Phone RANDY TOVAR Primary Care Provider Unavailab Margaret Vu Unavailable [phone] Allergies Allergen (clinical drug ingredient) Drug/Non Drug Allergy documented on EMR Reaction Allergy Type Onset Date Status RHINO-MIGUEL (uncoded) REDNESS/SWELLING Allergy Active ELAVIL HIVES Drug Allergy Active imipramine IMIPRAMINE INCREASED HEART RATE Drug Allergy Active duloxetine CYMBALTA INSOMNIA Drug Allergy Active pregabalin LYRICA WEIGHT GAIN Drug Allergy Acti ve Reason For Referral No Information Medications Medication SIG (Take, Route, Frequency, Duration) Notes Start Date End Date Status Venlafaxine HCl 75MG ER 1 [place]AL daily; [place] [facility] [place] Active Vitamin D3 1000 IU ORAL daily; Duration[place] [facility] [place] Active Calcium-D 600MG 1 ORAL twice daily; Duration: [place] [facility] [place]11[place] Active Aspirin EC 81MG 1 ORAL daily; Durati on: - [facility] 05/25/2013 Active Bactrim DS 800-160 MG 1 tablet Orally TW ICE A DAY; Duration: 7 days 07/02/2016 Active Simvastatin 40MG 1 ORAL daily; Durati on: - [facility] 08/11/2012 Active Sanctura 60MG XR 1 ORAL daily; Durati on: [facility] 08/11/2012 Active Multivitamins 1 ORAL daily; Durati on: [facility] 08/11/2012 Active Metoprolol Succinate 50MG 1 ORAL daily; Duration: 3 [facility] [place] Active Problems Problem Type SNOMED Code ICD Code Onset Dates Problem Status W/U Status Risk Notes Problem Incomplete uterovaginal prolapse (858783382) Incomplete uterovaginal prolapse (N81.2) Active confirmed Problem Herniation of rectum into vagina (563439211) Rectocele (N81.6) Active confirmed Problem Cystocele (620618862) Cystocele, unspecified (N81.10) Active confirmed Problem Hyperlipidemia (92670043) Other and unspecified hyperlipidemia (272.4) Active confirmed Major Problem Takotsubo syndrome (899851635) Takotsubo syndrome (429.83) Active confirmed Major Problem Prolapse of vaginal castillo without uterine prolapse (633004391) Prolapse of vaginal castillo without mention of uterine prolapse (618.0) Active confirmed Major Problem Midline cystocele (841020610) Cystocele without mention of uterine prolapse, midline (618.01) Active confirmed Diag Problem Herniation of rectum into vagina (796434854) Rectocele without mention of uterine prolapse (618.04) Active confirmed Diag Problem Uterine prolapse without vaginal wall prolapse (92699504) Uterine prolapse without mention of vaginal wall prolapse (618.1) Active confirmed Diag Problem Menopausal symptom (98789374) Symptomatic menopausal or female climacteric states (627.2) Active confirmed Major Problem Osteoporosis (95971095) Unspecified osteoporosis (733.00) Active confirmed Diag Problem Disorder of bone and articular cartilage (disorder) (620855142) Disorder of bone and cartilage, unspecified (733.90) Active confirmed Diag Problem Screening for malignant neoplasm of cervix (529946068) Screening for malignant neoplasm of the cervix (V76.2) Active confirmed Major Problem Screening for malignant neoplasm of colon (392536189) Special screening for malignant neoplasms, colon (V76.51) Active confirmed Major Problem Disorder of urinary bladder (56341289) Other specified disorders of bladder (596.89) Active confirmed Major Plan Of Treatment Pending Test Test Name Order Date URINE CULTURE 07/02/2016 COMPLETE URINALYSIS 06/29/2016 Insurance Providers Payer Name Payer Address Payer Phone Subscriber Number Group Number Insured Name Patient Relationship to Insured Coverage Start Date Coverage End Date MEDICARE [address] [place] [id number] CHAUNCEY QUEZADA Self - patient is the insured [employer] [address] [place] [address] [phone] [id number] CHAUNCEY QUEZADA Self - patient is the insured Medical (General) History Medical History History ICD Code Other specified disorders of bone densit y and structure, unspecified site M85.80 Age-related osteoporosis without current pathological fracture M81.0 Cystocele, unspecified N81.10 Rectocele N81.6 Incomplete uterovaginal prolapse N81.2 Other specified disorders of bladder N32 .89 Prolapse of vaginal castillo without mentio n of uterine prolapse 618.0 Takotsubo syndrome I51.81 Hyperlipidemia, unspecified E78.5 Menopausal and female climacteric states N95.1 Surgical History Surgery Date(Month/Year) SPINAL FUSION SURGERY X2 BILATERAL TUBAL LIGATION COLONOSCOPY
--- OUTSIDE RECORDS SUMMARY | 2025-03-21 11:53 | XMS_ITS | Patient Health Record ---
Author Organization [facility] Address [address] [place] [address] Care Team Providers Care Classified Advertising Supervisor Name Role Phone Kenny JULIEN, Michelle Primary Care Provider Saman Rai Unavailable [phone] Allergies Allergen (clinical drug ingredient) Drug/Non Drug Allergy documented on EMR Reaction Allergy Type Onset Date Status Impramine HCR (uncoded) Elevated HR & SOB Allergy Active duloxetine Cymbalta insomnia & headache Drug Allergy Active pregabalin Lyrica wt. gain Drug Allergy Active oxycodone OxyContin itchy/sleepy/dr henderson & memory loss Drug Allergy Active acetaminophen / oxycodone Percocet only with Fentanyl causes severe itch/nausea Drug Allergy Active tramadol Ultram Unknown Drug Allergy Active Tapentadol HCl diarrhea/chills / itch Drug Allergy Active budesonide Rhinocort Allergy redness & swelling Drug Allergy Active Elavil hives Drug Allergy Active Reason For Referral No Information Medications Medication SIG (Take, Route, Frequency, Duration) Notes Start Date End Date Status Effexor XR 75 MG 1 capsule with food Orally Once a day Active Vitamin B 12 Orally once a day Active Vitamin D 1000 UNIT 1 tablet Orally Once a day Active Multi Vitamin - 1 tablet Orally Once a day Active Lisinopril 2.5 MG 1 tablet Orally Once a day Active fentaNYL 100 MCG/HR 1 patch to skin Transdermal Active CeleBREX 100 MG 1 capsule with food Orally Twice a day as needed Active Calcium + D 1 tablet Orally once daily Active Baby Aspirin once daily Active Metoprolol Succinate ER 50 MG & 25 MG 1 tablet Orally Once a day A ctive Colace 100 MG 2 capsules Orally BID Active Simvastatin 40 MG 1 tablet in the even ing Orally Active MiraLax 1 packet mixed with 8 ounces of fluid Orally Once a day Active [place] 3 2 capsules Orally On ce a day Active Probiotic 1 capsule Orally onc e a day Active Trospium Chloride 20 MG 1 tablet Orally Once a day Active Co Q-10 1 capsule with a liz l Orally Once a day Active Social History Tobacco Use: Social History Observation Description Date Details (start date - stop date) Former Smoker NA - NA Tobacco Use/Smoking Question Answer Notes Are you a former smoker How long has it been since you last smoked? > 10 years Section Notes: family hx: smokers Plan Of Treatment No Information Insurance Providers Payer Name Payer Address Payer Phone Subscriber Number Group Number Insured Name Patient Relationship to Insured Coverage Start Date Coverage End Date [place] [facility] [address] [address] [place] [address] [id number] - CHAUNCEY QUEZADA Self - patient is the insured 6 [place] [address] [facility] [place] [phone] [id number] CHAUNCEY QUEZADA Self - patient is the insured [place] [address] [place] [address] [id number] CHAUNCEY QUEZADA Self - patient is the insured Medical (General) History Medical History History ICD Code HTN High Cholesterol DDD overactive bladder bladder Surgical History Surgery Date(Month/Year) Tubal ligation 1980 Spinal fusion L4,L5, S1 1991 Spinal Cord Stimulator 1999 Removal of Spinal harware & Spinal Cord Stimulator Spinal fusion L3,L4 02/2012 R foot bunionectomy 11/2014 Hysterectomy & bladder sling 10/2016 Hospitalization History Reason Date(Month/Year) surgery related
== END 2025-03-21 10:12 | disposition home or self-care (01) ==
LOC: HO.LAB 10:11
PROVIDERS: PCP Internal Medicine; Visit Provider Physician Assistant
DX: N30.01 Acute cystitis with hematuria (principal)
CPT/HCPCS: 81003; 87086; 87088; 87186; 99212

== ENCOUNTER 2025-05-21 09:28 | Outpatient (AMB) | payer MEDICARE, SELFPAY ==
[2025-05-21 09:35] VITALS: PULSE 53; RESP 18; TEMP 36.5; O2SAT 100; BMI 26.8
--- NOTE | 2025-05-21 09:35 | MHC.PC.OV ---
Intake Visit Reasons: V G0439 Allergies hydromorphone (From Dilaudid) Allergy (Intermediate, Verified 03/21/25 10:41) nausea, dizziness, flushed face amitriptyline Allergy (Unknown, Verified 03/21/25 10:41) increased heart rate, SOB budesonide (Rhinocort Allergy) Allergy (Unknown, Verified 03/21/25 10:41) swelling redness of the nose fentanyl Allergy (Unknown, Verified 03/21/25 10:41) itchy imipramine (From Tofranil) Allergy (Unknown, Verified 03/21/25 10:41) Hives oxycodone Allergy (Unknown, Verified 03/21/25 10:41) itchy tapentadol Allergy (Unknown, Verified 03/21/25 10:41) Unknown hydrochlorothiazide Adverse Reaction (Intermediate, Verified 03/21/25 10:41) Confusion alendronate sodium (Fosamax) Adverse Reaction (Unknown, Verified 03/21/25 10:41) Abdominal Pain duloxetine Adverse Reaction (Unknown, Verified 03/21/25 10:41) insomnia and hedache pregabalin Adverse Reaction (Unknown, Verified 03/21/25 10:41) waking tramadol (Ultram) Adverse Reaction (Unknown, Verified 03/21/25 10:41) auforia feeling amlodipine Adverse Reaction (Verified 03/21/25 10:41) tiredness and back pain Tobacco use date assessed: 09/28/23 Dental Screening Dental Screen Date: 09/28/23 [facility] Medical History (Updated 03/21/25 @ 11:08 by Raya Booth PA-C) Age related osteoporosis Vitamin D deficiency Annual physical exam HTN (hypertension) Multinodular goiter Hyperlipidemia Osteopenia Broken heart syndrome Depression Cloudy urine Surgical History H/O lumbosacral spine surgery S/P MARICARMEN (total abdominal hysterectomy) No pertinent past surgical history Family History Father HTN (hypertension) Mother No problems noted. Social History Housing: Apartment Alcohol intake: never Patient Tobacco Use Status: Former Tobacco user e-Cigarette/Vaping Use: Never Used Current occupational status: retired and disabled Cognitive needs: No Hearing needs: No Vision needs: Yes Questionnaire PHQ-9 Over the last 2 weeks, how often have you been bothered by any of the following problems? 1. Little interest or pleasure in doing things: not at all 2. Feeling down, depressed, or hopeless: not at all 3. Trouble falling or staying asleep, or sleeping too much: several days 4. Feeling tired or having little energy: several days 5. Poor appetite or overeating: several days 6. Feeling bad about yourself - or that you are a failure or have let yourself or your family down: not at all 7. Trouble concentrating on things, such as reading the newspaper or watching television: not at all 8. Moving or speaking so slowly that other people could have noticed. Or the opposite - being so fidgety or restless that you have been moving around a lot more than usual: not at all 9. Thoughts that you would be better off or of hurting yourself in some way: not at all Total score: 3 Source: Developed by Drs. Krish Garcia, Aysha Werner, Carlos Broussard and colleagues, with an educational cory from [employer]. Thrive Questionnaire Date Thrive assessed: 05/21/25 I am a: Patient What is your living situation today?: I have a steady place to live Within the past 12 months, did the food you bought not last and you didn't have the money to get more?: I choose not to answer this question Within the past 12 months, did you worry whether your food would run out before you got money to buy more?: I choose not to answer this question Do you have trouble paying for medicines?: No Do you have trouble getting transportation to medical appointments?: No Do you have trouble paying your heating and electricity bill?: No Do you have trouble taking care of your child, family member or friend?: No Do you have trouble with day-to-day activities such as bathing, preparing meals, shopping, managing finances, etc.?: No Are you currently unemployed and looking for a job?: No Are you interested in more education?: No Please select the resources that you would like help with: None Currently or been in a relationship where the following occur: No concerns reported THRIVE Score: 0 AUDIT C Alcohol Use Questionnaire (AUDIT-C) 3. How often do you have six or more drinks on one occasion?: Never Total Score: 0 MAEVE-7 AMB Questionnaire MAEVE-7 Date MAEVE - 7 assessed: 09/28/23 Source: Developed by Drs. Krish Garcia, Aysha Werner, Carlos Broussard and colleagues, with an educational cory from [employer]. Physical exam (Primary Care) Tobacco/Smoking Status: Tobacco use Status Tobacco use date assessed 09/28/23 10/07/23 11:09 Patient Tobacco Use Status Former Tobacco user 03/21/25 10:33 e-Cigarette/Vaping Use Never Used 10/07/23 11:09 Thrive Assessment: Date of Thrive Assessment Date Thrive assessed 05/21/25 05/21/25 09:29 Currently or been in a relationship where the following occur: No concerns reported Coding
--- NOTE | 2025-05-21 09:35 | AM.OFFVISMDC ---
Intake Vital Signs 05/21/25 09:35 Height 5 ft 5 in Weight 161 lb BMI 26.8 Respiration 18 Pulse 53 Pulse Source Pulse Oximeter Temp 97.7 F Temp Source Oral Pulse Oximetry (%) 100 Oxygen Delivery Method Room Air Intake Visit Reasons: V G0439 Allergies hydromorphone (From Dilaudid) Allergy (Intermediate, Verified 05/21/25 09:36) nausea, dizziness, flushed face amitriptyline Allergy (Unknown, Verified 05/21/25 09:36) increased heart rate, SOB budesonide (Rhinocort Allergy) Allergy (Unknown, Verified 05/21/25 09:36) swelling redness of the nose fentanyl Allergy (Unknown, Verified 05/21/25 09:36) itchy imipramine (From Tofranil) Allergy (Unknown, Verified 05/21/25 09:36) Hives oxycodone Allergy (Unknown, Verified 05/21/25 09:36) itchy tapentadol Allergy (Unknown, Verified 05/21/25 09:36) Unknown hydrochlorothiazide Adverse Reaction (Intermediate, Verified 05/21/25 09:36) Confusion alendronate sodium (Fosamax) Adverse Reaction (Unknown, Verified 05/21/25 09:36) Abdominal Pain duloxetine Adverse Reaction (Unknown, Verified 05/21/25 09:36) insomnia and hedache pregabalin Adverse Reaction (Unknown, Verified 05/21/25 09:36) waking tramadol (Ultram) Adverse Reaction (Unknown, Verified 05/21/25 09:36) auforia feeling amlodipine Adverse Reaction (Verified 05/21/25 09:36) tiredness and back pain Medication List - Last Reconciled 05/21/25 by Alison Christianson MD aspirin 81 mg PO DAILY hydralazine 10 mg PO BID lisinopril 40 mg PO DAILY metoprolol succinate ER 75 mg (1.5 x 50 mg) PO BID pyridostigmine bromide 60 mg PO TID simvastatin 40 mg PO BEDTIME trospium 20 mg PO DAILY venlafaxine ER 75 mg PO DAILY HPI SWV G0439 HPI Details Initiated the conversation about Advanced Directives. Advanced Directives help? patients prepare for current and future decisions about their medical treatment? and place of care. Discussed with patient that it is a process where a patients? current condition and prognosis are reviewed, their wishes for information? regarding their illness are elicited, and likely medical dilemmas are presented? and options discussed. The form can be amended as needed, reviewed yearly and? make changes as needed IPPE/AWV ? year old presents? for her ? Annual? Wellness Visit, initial visit.? Medical / Social History Reviewed? Past Medical History ?Yes? . ? [place]? of Care / Care Team list updated ?Yes . ? Surgical/Hospitalization? History ?Yes . ? Current Medications? (including OTC and supplements) ?Yes . ? Family History ?Yes? . ? Tobacco? Control form ?Yes . ? AUDIT-C (Alcohol use) form? ?Yes . ? Illicit drug use in Social? History ?Yes . ? Current diagnosis of? depression? ?No ? Appropriate PHQ2/PHQ9? completed ?Yes . ? Data entered by ?Medical? [employer] and reviewed by provider ? Fall Risk ? Fall? History? Have you had any falls with? injury in the past year? ?No . ? Have you had two or more? falls in the past year? ?No . ? Fall Risk Assessment: ?No? falls in the past year . ? HRA filled out by? the patient, reviewed by Provider and scanned. ? IPPE/AWV ? Balance? [place]? ?Yes . ? Tandem? walk ?Yes . ? Walk and? Turn ?Yes . ? Rise from? sit to stand ?Yes . ?Vision? Corrective? lens ?Yes ? Vision? screen ? Up-to-date, has an appointment [] for vision? screening and glaucoma screening ?Hearing? Whisper? test ?pass .? Initiated the conversation about Advanced Directives. Advanced Directives help? patients prepare for current and future decisions about their medical treatment? and place of care. Discussed with patient that it is a process where a patients? current condition and prognosis are reviewed, their wishes for information? regarding their illness are elicited, and likely medical dilemmas are presented? and options discussed. The form can be amended as needed, reviewed yearly and? make changes as needed Written? Plan?Completed. See Patient? Documents. [facility] Medical History (Updated 05/21/25 @ 10:39 by Alison Christianson MD) Orthostatic hypotension Age related osteoporosis Vitamin D deficiency Annual physical exam HTN (hypertension) Multinodular goiter Hyperlipidemia Osteopenia Broken heart syndrome Depression Cloudy urine Surgical History H/O lumbosacral spine surgery S/P MARICARMEN (total abdominal hysterectomy) No pertinent past surgical history Family History Father HTN (hypertension) Mother No problems noted. Social History Housing: Apartment Alcohol intake: never Patient Tobacco Use Status: Former Tobacco user e-Cigarette/Vaping Use: Never Used Current occupational status: retired and disabled Cognitive needs: No Hearing needs: No Vision needs: Yes Questionnaire Medicare Wellness Checkup [age] What gender do you identify with?: female During the past 4 weeks, how much have you been bothered by emotional problems such as feeling anxious, depressed, irritable, sad or downhearted, and blue?: not at all During the past 4 weeks, has your physical & emotional health limited your social activities with family, friends, neighbors, or groups?: not at all During the past 4 weeks, how much bodily pain have you generally had?: no pain During the past 4 weeks, was someone available to help you if you needed & wanted help?: no, not at all During the past 4 weeks, what was the hardest physical activity you could do for at least 2 minutes?: very light Can you get to places out of walking distance without help? (For eg., can you travel alone on buses, taxis or drive your car?): Yes Can you go shopping for groceries or clothes without someone's help?: Yes Can you prepare your own meals?: Yes Can you do your housework without help?: Yes Because of any health problems, do you need the help of another person with your personal care needs such as eating, bathing, dressing or getting around the house?: No Can you handle your own money without help?: Yes During the past 4 weeks, how would you rate your health in general?: very good During the past 4 weeks how have things been going for you?: pretty well Are you having difficulties driving your car?: no Do you always fasten your seat belt when you are in a car?: yes, usually During past 4 weeks, have you been bothered by the following: never: Sexual problems?, Trouble eating well?, Teeth or denture problems? and Problems using the telephone? and seldom: Falling or dizzy when standing up and Tiredness or fatigue? Have you fallen 2 or more times in the past year?: No Are you afraid of falling?: No Are you a smoker?: no During the past 4 weeks, how many drinks of wine, beer, or other alcoholic beverages did you have?: no alcohol at all Do you exercise for about 20 minutes 3 or more times a week?: yes, some of the time Have you been given information to help with the following?: yes: Hazards in your house that might hurt you? and yes: Keeping track of your medications? How often do you have trouble taking medicines the way you have been told to take them?: I always take medicine as prescribed How confident are you that you can control & manage most of your health problems?: very confident What is your race?: White Mini Mental State Exam (MMSE) Orientation What is the (year) (season) (date) (day) (month)?: year, season, date, day and month Where are we (state) (county) (town or city) (hospital) (floor)?: state, county, town or city, hospital/clinic and floor Registration Name of 3 unrelated objects clearly and slowly, then ask patient to repeat all 3 of them. (1st repeat determines score. Make sure they can repeat all three): object 1, object 2 and object 3 Attention & Calculation (CHOOSE ONE) Spell WORLD backwards (DLROW): 5 letters Recall Ask patient to repeat the 3 items from question #3.: object 1, object 2 and object 3 Language Show patient a wristwatch & ask what it is. Repeat for pencil.: watch and pencil Ask the patient to repeat the phrase 'No ifs, ands, or buts' after you.: correct Ask the patient to 'take a piece of paper with their right hand' 'fold paper in half' 'place paper on floor': take paper in right hand, fold paper in half and place paper on floor Print the sentence 'CLOSE YOUR EYES' on a piece. If patient actually closes eyes then score.: followed written direction Give patient a blank piece of paper & ask to write a sentence. Score if it contains a noun & verb.: sentence contains subject and verb Score Score: 29 PHQ-9 Over the last 2 weeks, how often have you been bothered by any of the following problems? 1. Little interest or pleasure in doing things: not at all 2. Feeling down, depressed, or hopeless: not at all 3. Trouble falling or staying asleep, or sleeping too much: several days 4. Feeling tired or having little energy: several days 5. Poor appetite or overeating: several days 6. Feeling bad about yourself - or that you are a failure or have let yourself or your family down: not at all 7. Trouble concentrating on things, such as reading the newspaper or watching television: not at all 8. Moving or speaking so slowly that other people could have noticed. Or the opposite - being so fidgety or restless that you have been moving around a lot more than usual: not at all 9. Thoughts that you would be better off or of hurting yourself in some way: not at all Total score: 3 Depression Screening Interpretation: Negative Depression Screening Done: Yes 36057 - PHQ-9 Billing: Yes Source: Developed by Drs. Krish Garcia, Aysha Werner, Carlos Broussard and colleagues, with an educational cory from [employer]. Review of Systems Const All systems reviewed & are unremarkable except as noted in HPI and below Reports no additional complaints Eyes Reports no additional complaints ENT Reports no additional complaints Card Reports no additional complaints Resp Reports no additional complaints GI Reports no additional complaints Reports no additional complaints Physical Exam Vital Signs: Last Vital Signs Temp 97.7 F 05/21/25 09:35 Pulse 53 05/21/25 09:35 Resp 18 05/21/25 09:35 Pulse Ox 100 05/21/25 09:35 Oxygen Delivery Method Room Air 05/21/25 09:35 BMI result Body Mass Index 26.8 Const General: no acute distress HEENT Head: Yes normal to inspection Ears: hearing grossly normal bilaterally Face and sinus: Yes normal facial exam Mouth: Normal oral and palatal mucosa present Throat: Yes posterior oropharynx normal Eyes General: appearance normal, both eyes and all related structures Neck Neck: Yes no lymphadenopathy and Yes supple Resp Effort & Inspection: normal respiratory effort Auscultation: clear to auscultation bilaterally Cardio Rhythm: regular rhythm Heart sounds: S1 normal heart sound present and S2 normal heart sound present GI Inspection: Yes normal to inspection Palpation (GI): Soft to palpation Percussion: Yes normal to percussion Auscultation: normal bowel sounds Extrem General: Yes no clubbing, cyanosis or edema Assessment & Plan Assessment & Plan (1) Hyperlipidemia: Code(s): E78.5 - Hyperlipidemia, unspecified Plan: cont Simvastatin (2) HTN (hypertension): Comment: Patient [facility] up with [facility] Cardiology Code(s): I10 - Essential (primary) hypertension Plan: Continue current medication follow-up with Cardiology (3) Annual physical exam: Code(s): Z00.00 - Encounter for general adult medical examination without abnormal findings Plan: Well-balanced diet regular physical activity discussed with the patient. (4) Age related osteoporosis: Comment: DEXA osteporosis 09/2019, s/p 2 RECLAST infusions 09/2019, 09/2020, DEXA 20 % improvement , 3rd infusion 11/2021, 4th infusion 01/2024, repeat DEXA in 2025 Code(s): M81.0 - Age-related osteoporosis without current pathological fracture Plan: Continue vitamin-D and weight-bearing exercise (5) Orthostatic hypotension: Comment: f/u with cardiology, on Pyridostigmine, POTS, F/U U Con Code(s): I95.1 - Orthostatic hypotension Plan: Follow-up with cardiology Orders: Orders Complete Blood Count Auto Diff Today E78.5 - Hyperlipidemia, unspecified, I10 - Essential (primary) hypertension, I95.1 - Orthostatic hypotension, M81.0 - Age-related osteoporosis without current pathological fracture, Z00.00 - Encounter for general adult medical examination without abnormal findings UA w Microscopic Today E78.5 - Hyperlipidemia, unspecified, I10 - Essential (primary) hypertension, I95.1 - Orthostatic hypotension, M81.0 - Age-related osteoporosis without current pathological fracture, Z00.00 - Encounter for general adult medical examination without abnormal findings Comprehensive [place]. Panel Fast Today E78.5 - Hyperlipidemia, unspecified, I10 - Essential (primary) hypertension, I95.1 - Orthostatic hypotension, M81.0 - Age-related osteoporosis without current pathological fracture, Z00.00 - Encounter for general adult medical examination without abnormal findings Lipid Panel Today E78.5 - Hyperlipidemia, unspecified, I10 - Essential (primary) hypertension, I95.1 - Orthostatic hypotension, M81.0 - Age-related osteoporosis without current pathological fracture, Z00.00 - Encounter for general adult medical examination without abnormal findings TSH reflex Free T4 Today E78.5 - Hyperlipidemia, unspecified, I10 - Essential (primary) hypertension, I95.1 - Orthostatic hypotension, M81.0 - Age-related osteoporosis without current pathological fracture, Z00.00 - Encounter for general adult medical examination without abnormal findings Vitamin D 25-OH Total Today E78.5 - Hyperlipidemia, unspecified, I10 - Essential (primary) hypertension, I95.1 - Orthostatic hypotension, M81.0 - Age-related osteoporosis without current pathological fracture, Z00.00 - Encounter for general adult medical examination without abnormal findings Medications: New hydralazine 10 mg PO BID 180 tabs 0RF Changed From pyridostigmine bromide 60 mg PO TID 90 tabs 0RF To pyridostigmine bromide 4 times a day but the 4th dose is prn 60 mg PO TID Refilled simvastatin 40 mg PO BEDTIME 90 tabs 3RF Quality Reporting (2019) Depression/Bipolar (159/160/161/177) PHQ-9: Total score: 3 Coding Level of Care Code Medicare Subsequent (G0439) Diagnoses Hyperlipidemia E78.5 HTN (hypertension) I10 Annual physical exam Z00.00 Age related osteoporosis M81.0 Orthostatic hypotension I95.1 CPT Codes Advance Care Planning - Advance Care Planning discussion: On file, no changes ([id number]) Advance Care Planning - Time spent: 1-15 minutes, on File ([id number]) Additional Codes PHQ-9 - 46771 - PHQ-9 Billing: Yes ([id number]) Advance Care Planning Advance Care Planning discussion: On file, no changes Forms completed: Health Care Proxy Time spent: 1-15 minutes, on File
--- OUTSIDE RECORDS SUMMARY | 2025-05-21 12:01 | XMS_ITS | Clinical Summary ---
Author Organization [facility], Address [address] [place] [address] [place] [address] Phone Care Team Providers Care Returned Goods Receiving Clerk Name Role Phone Alison Christianson MD Primary Care Provider [phone] Social History Tobacco Use Types Packs/Day Years [...] age to complete this topic Insurance Medicare [facility] Care Teams Returned Goods Receiving Clerk Relationship Specialty Start Date End Date Alison Christianson MD [facility] [place] [address] PCP - General Internal Medicine 07/25/23
--- OUTSIDE RECORDS SUMMARY | 2025-05-21 12:01 | XMS_ITS | Patient Health Record ---
Author Organization [facility] Address [address] [place] [address] Care Team Providers Care Chief Medical Officer Name Role Phone Kenny JULIEN, Michelle Primary Care Provider Saman Rai Unavailable [phone] Allergies Allergen (clinical drug ingredient) Drug/Non Drug [...] of fluid Orally Once a day Active [place] 3 2 capsules Orally On ce a [...] Insured Coverage Start Date Coverage End Date Alfalfa [facility] [address] [address] [place] [address] [id number] - CHAUNCEY QUEZADA Self - patient is the insured 6 [place] B [place] [address] [facility] [place] [address] [id number] CHAUNCEY QUEZADA Self - patient is the insured [place] [address] [place] [address] [id number] CHAUNCEY QUEZADA Self - patient is the [...]
--- OUTSIDE RECORDS SUMMARY | 2025-05-21 12:01 | XMS_ITS | Clinical Summary ---
Author Organization [address] [place] [address] [place] [phone] Phone Care Team Providers Care Billet Shearer Name Role Phone Alison Christianson MD Primary Care Provider [phone] Allergies Active Allergy Reactions Criticality Noted Date Comments Alendronic Acid 04/25/2018 bloating Amitriptyline Hcl Hives 12/20/2008 Budesonide Swelling 03/09/2018 Per patient redness and swelling of nose with the nasal spray Duloxetine Other 12/20/2008 Insomnia, weight gain Hydrochlorothiazide Dizziness 11/08/2022 Hydromorphone 11/09/2023 Imipramine Hcl 05/15/2010 Increased heart heart Midodrine 02/29/2024 Insomnia and and crawling sensation on legs Oxycodone Hcl Itching 01/05/2018 oxycontin only Pregabalin Other 12/20/2008 Fatigue, weight gain Tapentadol Hcl Itching 01/05/2018 Medications MULTIVITAMIN ORAL 1 tab daily Active acetaminophen (TYLENOL) 325 mg tablet Take 2 tablets (650 mg total) by mouth 2 (two) times a day. 07/06/2023 Active aspirin 81 mg EC tablet Take 81 mg by mouth daily. Active calcium carbonate-vitam in D3 600 mg-5 mcg (200 unit) per tablet 1 tab bid Active lisinopril (PRINIVIL,ZESTR IL) 40 mg tablet Take 1 Tablet by mouth daily. Active metoprolol succinate (TOPROL-XL) 50 mg 24 hr tablet Take 1.5 Tablets by mouth 2 Times Daily. 12/14/2023 Active pyRIDostigmine (MESTINON) 60 mg tablet Take 1 tablet (60 mg total) by mouth 3 (three) times a day. Take fourth dose as needed Active simvastatin (ZOCOR) 40 mg tablet Take 1 Tab by mouth at bedtime. 12/05/2018 Active trospium (SANCTURA) 20 mg tablet Take 20 mg by mouth daily. Active venlafaxine XR (EFFEXOR-XR) 75 mg 24 hr capsule Take 1 Cap by mouth daily for 90 days. 03/14/2019 Active hydrALAZINE (APRESOLINE) 10 mg tablet TAKE ONE TABLET BY MOUTH TWICE A DAY 60 tablet 6 02/07/2025 Active Active Problems Problem Noted Date Diagnosed Date Dysautonomia (CMS/[facility] V24, CMS/[facility] V28) 08/24/20 23 Overview (09/06/2024): Symptoms started after her major spinal surgery in June 2023 Did not tolerate midodrine due to excessive supine hypertension Did not tolerate Florinef due to excessive lower extremity edema Was started on metoprolol after her Takotsubo episode which was increased due to subjective awareness of palpitations with postural changes when she started developing dysautonomic symptoms- in spite of the fact that beta-blockers are not traditionally recommended with these conditions, it seemed to help her and Tolerating pyridostigmine in addition to metoprolol for coexisting palpitation symptoms possibly related to reflex sinus tachycardia Last Assessment & Plan: Doing very well on pyridostigmine which is often the best tolerated medication in patients with concurrent supine hypertension issues. Would continue this at current dose. Recommended she start doing more core strengthening and isometric exercises on her back. I gave her a few examples which she will try to incorporate into her regimen. The idea really long-term is to try to wean her off of pyridostigmine once she is conditioned enough to improve her dysautonomic symptoms without medications. This may take years however. She is aware of this. I am encouraged by her progress thus far though. Recommended a neutral sodium diet in light of concurrent hypertension. Assessment & Plan (11/28/2024 4:21 PM EDT): Reasonably well controlled. - Continue pyridostigmine three times a day. - See above regarding hypertension management. Palpitations 11/08/2022 Overview (09/06/2024): -No arrhythmogenic cause found -May be subjective awareness of sinus tachycardia -Responds to Toprol - She reports now she is taking it twice daily Last Assessment & Plan: Continue current Toprol XL as above. Takotsubo cardiomyopathy 04/22/2021 Overview (09/06/2024): -Presented with exertional dyspnea and palpitations in [...] recent dysautonomia symptoms in July 2023 at [facility] during a hospitalization which showed preserved ejection fraction of 55 to 60% with normal regional wall motion, normal RV size and systolic function, normal left ventricular diastolic function, no hemodynamically significant valve disease but incidental note of a large Chiari network Last Assessment & Plan: Complete recovery of ejection fraction. No further testing. Assessment & Plan (11/28/2024 4:21 PM EDT): Has had recovery of ejection fraction. Remains on some GDMT including lisinopril and metoprolol which I am continuing cautiously. Chronic, continuous use of opioids 07/06/2018 Lumbar radiculopathy 07/06/2018 Failed back syndrome of lumbar spine 11/18/2017 Overview (09/06/2024): Followed by Dr. Giordano, also seen in [place], status post fusion , status post nerve stimulator 11/1999, hardware removed 07/2003 Alcohol abuse, in remission 11/04/2015 Overview (09/06/2024): 21 years in 12/2015 Osteopenia 07/25/2015 Overview (09/06/2024): DEXA outside 07/25/2015 lumbar spine T score -0.9, femur T score -2.2 Supine hypertension 12/15/2011 Overview (09/06/2024): - Has been intolerant of many different medications-including carvedilol - Thus far, has been tolerant of lisinopril and metoprolol combination Last Assessment & Plan: I reviewed with her that unfortunately, there is not a robust amount of data in the space to know how to treat supine hypertension in the setting of orthostasis. In limited studies, lisinopril and metoprolol are both less favored medications in this arena where ARB's and calcium channel blockers may be more well-tolerated. However, there is no clear recipe book for this. In this particular case, she is tolerating lisinopril and metoprolol and would prefer to stay on these 2 agents. I agree with her that the 40 mg dose of lisinopril is working much better to control her blood pressure so we will continue metoprolol 75 mg twice daily succinate preparation along with lisinopril 40 mg daily. Assessment & Plan (11/28/2024 4:21 PM EDT): Supine and orthostatic hypotension with possible orthostatic tachycardia. Despite being on lisinopril 40 mg and metoprolol 75 mg twice a day, blood pressure remains uncontrolled. History of medication intolerances. - Initiate hydralazine 10 mg twice daily for additional blood pressure control. - If insufficient, increase to 10 mg three times daily. Depression 12/20/2008 Hyperlipidemia 12/20/2008 Overview (09/06/2024): Last Assessment & Plan: Continue current simvastatin. Assessment & Plan (11/28/2024 4:21 PM EDT): Continue current simvastatin 40 mg at bedtime. Orders: ECG 12 lead Encounters Date Type Department Care Team Description 02/28/2025 9:20 AM EDT Office Visit [facility] [address] [place] [address] Edna Jackson MD Dysautonomia (CMS/HCC V24, CMS/HCC V28) (Primary Dx); Takotsubo cardiomyopathy; Supine hypertension; Palpitations 02/28/2025 Telephone [facility] [address] [facility] [address] [place] [address] Edna Jackson MD from Last 3 Months Immunizations Name Administration Dates Next Due Pneumococcal conjugate 13 va lent (Prevnar 13, PCV13) 2mo and older 11/18/2016 Tdap Tetanus diptheria acell ular pertussis (Boostrix; Adacel) 7yo and older 10/15/2009 Surgical History Surgery Date Site/Laterality Comments BACK SURGERY PROCEDURE: HISTORICAL BACK SURGERY TUBAL LIGATION PROCEDURE: HISTORICAL TUBAL LIGATION OTHER SURGICAL HISTORY PROCEDURE: ---- OTHER ----; COMMENT: spinal cord stimulator Medical History Medical History Date Comments Alcohol abuse, in remission 11/04/2015 DX:A lcohol abuse, in remission; COMMENT: 21 years in 12/2015 Depression 12/20/2008 DX:Depression Failed back syndrome of lumbar spine 11/18/2017 DX:Failed back syndrome of lumbar spine; COMMENT: Followed by Dr. Giordano, also seen in [place], status post fusion , status post nerve stimulator 11/1999, hardware removed 07/2003 Hyperlipidemia 12/20/2008 DX:Hyperlipidemi a Hypertension 12/15/2011 DX:Hypertension Osteopenia 07/25/2015 DX:Osteopenia; C OMMENT: DEXA outside 07/25/2015 lumbar spine T score -0.9, femur T score -2.2 Chronic, continuous use of opioids 07/06/2018 DX:Chronic, continuous use of opioids Lumbar radiculopathy 07/06/2018 DX:Lumbar r adiculopathy Family History Medical History Relation Name Comments Other: Ruptured AAA Father Hypertension Mother Hypertension Sister 1 Hyperlipidemia Sister 2 Hypertension Sister 3 Hyperlipidemia Sister 4 Coronary artery disease Neg Hx no p remature CAD Relation Name Status Comments Father (Age 73) aaa Mother Alive htn, hyperlipid emia Sister 1 Sister 2 Sister 3 Sister 4 Sister 5 Alive htn Sister 6 Alive htn, hyperlipid emia Social History Tobacco Use Types Packs/Day Years Used Date Smoking Tobacco: Former Cigarettes Smokeless Tobacco: Never Alcohol Use Standard Drinks/Week Comments No 0 (1 standard drink = 0.6 oz pur e alcohol) Comments Unknown Sex and Gender Information Value Date Recorded Sex Assigned at Not on file Legal Sex Female 9:59 PM EST Gender Identity Not on file Sexual Orientation Not on file Obstetrics History Last Filed Vital Signs Vital Sign Reading [...] Mass Index 25.99 02/28/2025 9:39 AM EDT Plan of Treatment Upcoming Encounters Date Type Department Care Team (Late st Contact Info) Description 06/07/2025 10:50 AM EDT Office Visit [facility] [address] [facility] [address] [place] [id number] Edna Jackson MD [address] [place] [address] [place] [phone] Health Maintenance Due Date Last Done Comments Hepatitis A Vaccines (1 of 2 - Risk 2-dose series) 1969 Zoster Vaccines (1 of 2) 02/19/2000 Pneumococcal Vaccine: 50+ Years (2 of 2 - PPSV23) 11/18/2017 11/18/2016, 11/18/2016, 03/12/2016 DTaP,Tdap,and Td Vaccines (2 - Td or Tdap) 10/15/2019 10/15/2009 Cholesterol Screening (Lipid Panel) 08/14/2022 06/20/2017 Colorectal Cancer Screening: Colonoscopy 08/14/2022 Falls Risk Assessment 08/14/2022 Hepatitis C Screening 08/14/2022 Medicare Annual Wellness Visit 08/14/2022 Social Influencers of Health Screening 08/14/2022 Depression Screening 09/05/2024 RSV Immunization Adult Patients (1 - 1-dose 75+ series) 2025 Hypertension/CHF/CAD Annual BMP Blood Test 04/13/2025 04/13/2024, 04/13/2024, 07/01/2023, Additional history exists COVID-19 Vaccine ( season) 2025 07/23/2021, 01/12/2021, 12/22/2020 Influenza Vaccine (#1) 2025 Osteoporosis Screening (Bone Density Screening) 05/19/2028 05/19/2018 HIB Vaccines Aged Out No longer eligi ble based on patient's age to complete this topic HPV Vaccines Aged Out No longer eligi ble based on patient's age to complete this topic Hepatitis B Vaccines Aged Out No long er eligible based on patient's age to complete this topic IPV Vaccines Aged Out No longer eligi ble based on patient's age to complete this topic MMR Vaccines Aged Out No longer eligi ble based on patient's age to complete this topic Meningococcal ACWY Vaccine Aged Out N o longer eligible based on patient's age to complete this topic Meningococcal B Vaccine Aged Out No l onger eligible based on patient's age to complete this topic RSV Immunization Patients Under 20 months Aged Out No longer eligible based on patient's age to complete this topic Varicella Vaccines Aged Out No longer eligible based on patient's age to complete this topic Procedures Procedure Name Priority Date/Time Associated Diagnosis Comments ANNUAL BMP BLOOD TEST Routine 04/13/2024 DXA BONE DENSITY STUDY 1+ SITS AXIAL SKEL Routine 05/19/2018 9:56 AM EDT Age-related osteoporosis without current pathological fracture LIPID PANEL Routine 06/20/2017 from Last 3 Months or Most Recently Relevant to Health Maintenance Results * Annual BMP Blood Test (04/13/2024) Annual BMP Blood Test Abstracted us Historical Provider MD HEALTH MAINTENANCE Final Result * DXA BONE DENSITY STUDY 1+ SITS AXIAL SKEL (05/19/2018 9:56 AM EDT) Anatomical Region Laterality Modality Bone Densitometr y 03/14/2018 4:34 PM EDT Narrative 05/19/2018 12:32 PM EDT DEXA SCAN: Lumbar Spine T-score is -1.7. (SD relative to 20-29 y/o adult) Z-score is +0.2. (SD relative to age matched peers) This is considered osteopenia by WHO criteria. Left Femoral Neck T-score is -2.2. Z-score is -0.5. This is considered osteopenia by WHO criteria. Left Forearm T-score is -2.1. Z-score is -0.2. This is considered osteopenia by WHO criteria. Comparison exam(s): None available. IMPRESSION: Osteopenia by WHO criteria. This patient has a 12% risk of major osteoporotic fracture and a 2.2% risk of hip fracture over the next 10 years. (World Health Organization Fracture Risk Assessment) [facility] Department of Internal Medicine recommends using National Osteoporosis Foundation (NOF) guidelines in treatment decisions related to osteoporosis. NOF guidelines suggest considering treatment for postmenopausal women and men aged 50 or older presenting with the following: History of hip or vertebral fracture. T-score = -2.5 (DXA) at the femoral neck, total hip, or spine, after appropriate evaluation to exclude secondary causes. Low bone mass (T-score between -1.0 and -2.5 at the femoral neck or spine) AND a 10-year probability of a hip fracture = 3% OR a 10-year probability of a major osteoporosis-related fracture = 20% based on the [place]-adapted WHO algorithm Please note that all treatment decisions require clinical judgment and consideration of individual patient factors, including patient preferences, co-morbidities, previous drug use, risk factors not captured in the FRAX model (e.g., frailty, falls, vitamin D deficiency, increased bone turnover, interval significant decline in bone density) and possible under- or over-estimation of fracture risk by FRAX. Optional alternative screening schedule based on marisel Jose., [facility] September 23, 2011 for patients with osteopenia (based on hip BMD T-score) is as follows: * advanced osteopenia (T scores -2.00 to -2.49), BMD testing every year * moderate osteopenia (T scores -1.50 to -1.99), BMD testing every 5 years mild osteopenia or normal BMD (T scores -1.50 and higher), BMD testing every 15 years Procedure Note Gloria Samuels DO - 08/24/2022 DEXA SCAN: Lumbar Spine T-score is -1.7. (SD relative to 20-29 y/o adult) Z-score is +0.2. (SD relative to age matched peers) This is considered osteopenia by WHO criteria. Left Femoral Neck T-score is -2.2. Z-score is -0.5. This is considered osteopenia by WHO criteria. Left Forearm T-score is -2.1. Z-score is -0.2. This is considered osteopenia by WHO criteria. Comparison exam(s): None available. IMPRESSION: Osteopenia by WHO criteria. This patient has a 12% risk of majorosteoporotic fracture and a 2.2% risk of hip fracture over the next 10 years. (WorldHealth Organization Fracture Risk Assessment) [facility] Department of Internal Medicine recommendsusing National Osteoporosis Foundation (NOF) guidelines in treatment decisions related toosteoporosis. NOF guidelines suggest considering treatment for postmenopausal women and menaged 50 or older presenting with the following: History of hip or vertebral fracture. T-score = -2.5 (DXA) at the femoral neck, total hip, or spine, afterappropriate evaluation to exclude secondary causes. Low bone mass (T-score between -1.0 and -2.5 at the femoral neck or spine)AND a 10-year probability of a hip fracture = 3% OR a 10-year probability of a majorosteoporosis-related fracture = 20% based on the [place]-adapted WHO algorithm Please note that all treatment decisions require clinical judgment andconsideration of individual patient factors, including patient preferences, co- morbidities,previous drug use, risk factors not captured in the FRAX model (e.g., frailty, falls, vitaminD deficiency, increased bone turnover, interval significant decline in bone density) andpossible under- or over-estimation of fracture risk by FRAX. Optional alternative screening schedule based on marisel Jose., [facility] 2011 for patients with osteopenia (based on hip BMD T-score) is as follows: * advanced osteopenia (T scores -2.00 to -2.49), BMD testing every year * moderate osteopenia (T scores -1.50 to -1.99), BMD testing every 5years mild osteopenia or normal BMD (T scores -1.50 and higher), BMD testingevery 15 years Michelle Cox MD IMG DXA PROCEDURES Final Res ult * Lipid panel (06/20/2017) LDL/HDL Ratio 2 0 - 4 Triglycerides 62 0 - 150 mg/dL Cholesterol 180 0 - 200 mg/dL HDL 80 >=40 mg/dL LDL Cholesterol 88 0 - 100 mg/dL Blood Venous blood specimen / Unknown Historical Provider LAB BLOOD ORDERABLES Nai l Result from Last 3 Months or Most Recently Relevant to Health Maintenance Insurance MEDICARE [facility] Advance Directives Documents on File Type Date Recorded 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
--- OUTSIDE RECORDS SUMMARY | 2025-05-21 12:01 | XMS_ITS | Clinical Summary ---
Author Organization [facility] Address [address] [place] [address] Care Team Providers Care Gauge Maker Apprentice Name Role Phone Alison Christianson Primary Care Provider [phone] Allergies Active Allergy Reactions Criticality Noted Date [...] mg by mouth every 12 (twelve) hours. 05/04/2022 Active simvastatin (ZOCOR) 40 mg tablet Take 40 mg by mouth nightly. 12/05/2018 Active trospium (SANCTURA) 20 mg tablet Take 20 mg by mouth in the morning. 12/16/2021 Active venlafaxine XR (EFFEXOR-XR) 75 mg 24 [...] 40 mg by mouth in the morning. 11/29/2022 Active hydrALAZINE (APRESOLINE) 10 mg tablet Take [...] mg total) before bedtime. 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 She is euvolemic on exam without any [...] Encounters Date Type Department Care Team Description 04/28/2025 Results Follow-Up [facility] of Neurology [address] [place] [address] Kostas Torres MD Dysautonomia, Autoimmune/Paraneopl astic Evaluation, Serum 03/25/2025 Orders Only [facility] Department of Neurology [address] [place] [address] Kostas Torres MD Orthostatic hypotension (Primary Dx) 02/20/2025 2:30 PM EDT Office Visit [facility] [address] [place] [address] Kostas Torres MD Orthostatic hypotension (Primary Dx) from Last 3 Months Family History Relation Status Comments Father Mother Social History Tobacco Use Types Packs/Day Years Used Date Smoking Tobacco: Former Cigarettes Passive Smoke Exposure: Past Smokeless Tobacco: Never Tobacco Cessation:Counseling Given: Not Answered Alcohol Use Standard Drinks/Week Comments Not Currently 0 (1 standard drink = 0.6 oz pur e alcohol) sober 28 [facility] Utilities Answer Date Recorded In the past 12 months has th e electric, gas, oil, or water company threatened to shut off services in your [...] any time in the past 12 [facility], were you homeless or living in a nursing home (including now)? No 03/28/2024 Comments No Sex and Gender Information Value Date Recorded Sex Assigned at Not on file Legal Sex Female 11:35 AM EST Gender Identity Not on file Sexual Orientation Not on file Last Filed Vital Signs Vital Sign Reading [...] Description 08/21/2025 2:00 PM EST Office Visit [facility] Department of Neurology [address] [place] [address] Kostas Torres MD [address] [place] [address] Health Maintenance Due Date Last Done Comments [...] COVID-19 Vaccine (1 - 2023-2 5 season) 2025 Influenza Vaccine (#1) 2025 HPV Vaccines Aged Out No longer eligi ble based on patient's age to complete this topic Hepatitis A Vaccines Aged Out No long er eligible based on patient's age to complete this topic Meningococcal Vaccine Aged Out No ethel david eligible based on patient's age to complete this topic Medical Devices Implanted Type Area Gut Dropper Device Identifier Shelf Expiration Date Model / Serial / Lot 2.8cc, (Pk Of 2) 1in X 2in, Smallinfuse Bone Graft Kit - [id number] Implanted:Qty: 1 on 06/28/2023 by Javier Brikn MD at [facility] Bone Graft Substitute Spine Lumbar [employer] - Sofamor Danek 02/03/2025 [id number] / / [id number] 10cc Alphagraft Dbm Fiber - [id number] Implanted:Qty: 1 on 06/28/2023 by Javier Brink MD at [facility] Bone Spine Lumbar [employer] [id number] / / 1 - 8 Mm, 30 Cc, Readigraft Cancellous Chips, Preservon - [id number] Implanted:Qty: 1 on 06/28/2023 by Javier Brink MD at [facility] Bone Spine Lumbar [facility] 02/13/2028 PCAN30 / [id number] / [id number] 1 - 8 Mm, 30 Cc, Readigraft Cancellous Chips, Preservon - [id number] Implanted:Qty: 1 on 06/28/2023 by Javier Brink MD at [facility] Bone Spine Lumbar [facility] 02/13/2028 PCAN30 / [id number] / [id number] Amp Lif Two Screw Plate, 08 And Center Screw, 15mm - [id number] Implanted:Qty: 1 on 06/28/2023 by Javier Brink MD at [facility] Ortho - Spinal Implant Spine Lumbar [employer] 09/11/2025 [id number] 8-S / / [id number] 5.5mm X 35mm Amp Lif Bone Screw - [id number] Implanted:Qty: 1 on 06/28/2023 by Javier Brink MD at [facility] Ortho - Spinal Implant Spine Lumbar [employer] [id number] 5-2-S / / Invictus Modular Polyaxial Tulip - Sn/A - [id number] Implanted:Qty: 1 on 06/28/2023 by Javier Brink MD at [facility] Ortho - Spinal Implant N/A: Back [employer]. 06/28/2024 [id number] / N/A / N/A 5.5 X 300mm Invictus Mis Straight Spinal Nadir, Ti - [id number] Implanted:Qty: 3 on 06/28/2023 by Javier Brink MD at [facility] Ortho - Spinal Implant Spine Lumbar [employer]. 34587-93- 300 / / Alphatec Set Screw 35991 - [id number] Implanted:Qty: 20 on 06/28/2023 by Javier Brink MD at [facility] Ortho - Spinal Implant Spine Lumbar [employer] Inc. [id number] / / Invictus Modular Polyaxial Tulip - [id number] Implanted:Qty: 11 on 06/28/2023 by Javier Brink MD at [facility] Ortho - Spinal Implant Al[employer] Spine[employer] Inc. 63330 / / Left Connectors Duplicate, Please Transition To Cat 76179-87 - [id number] Implanted:Qty: 2 on 06/28/2023 by Javier Brink MD at [facility] Ortho Accessory [employer] Inc. [id number](DUP E) / / [id number], 30 Degree Identiti Lif-Hl Porous Ti Spacer Implanted:Qty: 1 on 06/28/2023 by Javier Brink MD at [facility] [employer]. 01/31/2025 [id number] 530-S / / [id number] 6.5mm X 50mm Invictus Modular Spinal Shank Screw - [id number] Implanted:Qty: 4 on 06/28/2023 by Javier Brink MD at [facility] N/A: Spine Lumbar [employer]. [id number] -[id number] / / 7.5mm X 40mm Invictus Cannulated Extended Tab Polyaxial Reduction Screw - [id number] Implanted:Qty: 2 on 06/28/2023 by Javier Brink MD at [facility] N/A: Spine Lumbar [employer] Inc. [id number] -040 / / 8.5mm X 45mm Invictus Cannulated Modular Spinal Screw Shank - [id number] Implanted:Qty: 2 on 06/28/2023 by Javier Brink MD at [facility] N/A: Spine Lumbar [employer] Inc. [id number] -045 / / 6.5mm X 40mm Invictus Cannulated Modular Screw Shank - [id number] Implanted:Qty: 4 on 06/28/2023 by Javier Brink MD at [facility] N/A: Spine Thoracic [employer] Sp[employer] Inc. 70532-765 -040 / / 6.5mm X 45mm Invictus Cannulated Modular Screw Shank - [id number] Implanted:Qty: 4 on 06/28/2023 by Javier Brink MD at [facility] N/A: Spine Lumbar Alph[employer] Sp[employer] Inc. [id number] -045 / / 15mm Invictus Connector Mod Sat Andir Right - [id number] Implanted:Qty: 2 on 06/28/2023 by Javier Brink MD at [facility] Alphatec Spine[employer] Inc. [id number] / / Explanted Type Area Gut Dropper Device Identifier Shelf Expiration Date Model / Serial / Lot Previous Hardware (4 Screws, 2 Rods, 4 Set Screws) Explanted:Qty: 10 on 06/28/2023 by Javier Brink MD at [facility] N/A: Back Medtronic[employer] Inc. N/A / / Procedures Procedure Name Priority Date/Time Associated Diagnosis Comments DYSAUTONOMIA, AUTOIMMUNE/PARANEOP LASTIC EVALUATION, SERUM Routine 04/05/2025 10:04 AM EDT Orthostatic hypotension from Last 3 Months Results * Dysautonomia, Autoimmune/Paraneoplastic Evaluation, Serum (04/05/2025 10:04 AM EDT) Dysautonomia, Interpretation, S SEE COMMENTS 04/22/2025 9:09 AM EDT [facility] Comment: No informative autoantibodies were detected in this evaluation. However, a negative result does not exclude neurological autoimmunity with or without associated neoplasia. IFA Notes (DYS2) None. 04/22/20 9:09 AM EDT [facility] Comment: Test Performed by: [address] [address] Bench Inspector: Keira Herrera Ph.D.; CLIA# [id number] AChR Ganglionic Neuronal Ab, S 0.00 <=0.02 nmol/L 04/22/2025 9:09 AM EDT [facility] Comment: ADDITIONAL INFORMATION This test was developed and its performance characteristics determined by [facility] in a manner consistent with CLIA requirements. This test has not been cleared or approved by the U.S. Food and Drug Administration. RUY-1, S Negative Negative 04/22/2025 9:09 AM EDT [facility] Comment: ADDITIONAL INFORMATION This test was developed and its performance characteristics determined by [facility] in a manner consistent with CLIA requirements. This test has not been cleared or approved by the U.S. Food and Drug Administration. AP3B2 IFA, S Negative Negative 04/22/2025 9:09 AM EDT [facility] Comment: ADDITIONAL INFORMATION This test was developed and its performance characteristics determined by [facility] in a manner consistent with CLIA requirements. This test has not been cleared or approved by the U.S. Food and Drug Administration. CRMP-5-IgG, S Negative Negative 04/22/2025 9:09 AM EDT [facility] Comment: ADDITIONAL INFORMATION This test was developed and its performance characteristics determined by [facility] in a manner consistent with CLIA requirements. This test has not been cleared or approved by the U.S. Food and Drug Administration. CASPR2-IgG CBA, S Negative Negative 9:09 AM EDT [facility] Comment: ADDITIONAL INFORMATION This test was developed and its performance characteristics determined by [facility] in a manner consistent with CLIA requirements. This test has not been cleared or approved by the U.S. Food and Drug Administration. LGI1-IgG CBA, S Negative Negative 9:09 AM EDT [facility] Comment: ADDITIONAL INFORMATION This test was developed and its performance characteristics determined by [facility] in a manner consistent with CLIA requirements. This test has not been cleared or approved by the U.S. Food and Drug Administration. ORNAMENT STITCHER-2, S Negative Negative 04/22/2025 9:09 AM EDT [facility] Comment: ADDITIONAL INFORMATION This test was developed and its performance characteristics determined by [facility] in a manner consistent with CLIA requirements. This test has not been cleared or approved by the U.S. Food and Drug Administration. DPPX Ab CBA, S Negative Negative 04/22/2025 9:09 AM EDT [facility] Comment: ADDITIONAL INFORMATION This test was developed and its performance characteristics determined by [facility] in a manner consistent with CLIA requirements. This test has not been cleared or approved by the U.S. Food and Drug Administration. Blood Venipuncture / Unknown 04/05/2025 10:04 AM EDT 04/05/2025 10:04 AM EDT us Eveline Moore MD LAB BLOOD [place] [address], from Last 3 Months Insurance MEDICARE PART A & B 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
--- OUTSIDE RECORDS SUMMARY | 2025-05-21 12:01 | XMS_ITS | Clinical Summary ---
Author Organization [facility] Address [address] [facility] [address] [place] [address] Care Team Providers Care Dental Assistant Medical Assistant Name Role Phone Alison Christianson MD Primary Care Provider [phone] Allergies Active Allergy Reactions Criticality Noted Date Comments Amitriptyline Hives 12/20/2008 Other reaction(s): HIVES, Hives/Urticaria Amlodipine 02/11/2023 foggy head Duloxetine Other 12/20/2008 Other reaction(s): OTHER, Other (see comments) Insomnia, weight gain Other Reaction(s): MATHEWS,INSOMNIA, Imipramine Insomnia, weight gain Hydrochlorothiazide Dizziness 11/08/2022 brain fog , Tired, Dry mouth Tapentadol Diarrhea,Itching 01/05/2018 Medications simvastatin (Zocor) 40 mg tablet Take 40 mg by mouth at bedtime. 12/05/2022 Active metoprolol succinate XL (Toprol-XL) 50 mg 24 hr tablet Take 50 mg by mouth twice daily. 12/03/2022 Active lisinopril 20 mg tablet Take 40 mg by mouth. 11/29/2022 Active hydrALAZINE (Apresoline) 10 mg tablet Take 10 mg by mouth twice daily. 01/17/2023 Active aspirin 81 mg EC tablet Take 81 mg by mouth. Active doxycycline (Vibramycin) 100 mg capsule Take 100 mg by mouth twice daily. 07/26/2022 Active venlafaxine XR (Effexor-XR) 75 mg 24 hr capsule Take 75 mg by mouth once daily. 01/18/2023 Active trospium (Sanctura) 20 mg tablet Take 20 mg by mouth once daily. 12/05/2022 Active calcium carbonate-vitam in D3 600 mg-5 mcg (200 unit) tablet Take 1 tablet by mouth in the morning and 1 tablet in the evening. Active MULTIVITAMIN ORAL 1 tab daily Active cholecalciferol , vitamin D3, (Vitamin D3) 10 mcg (400 unit) capsule 1 tab daily Active cyanocobalamin (Vitamin B-12) 1,000 mcg tablet Take 1,000 mcg by mouth once daily. Active polyethylene glycol (Glycolax) 17 gram packet Take 17 g by mouth once daily. Active acetaminophen (TylenoL) 325 mg tablet Take by mouth every 6 (six) hours if needed for pain score 1-3. Active coenzyme Q-10 100 mg capsule Take 100 mg by mouth once daily. Active lactobacillus (Culturelle) 10 billion cell capsule Take 1 capsule by mouth once daily. Active docusate sodium (Colace) 100 mg capsule Take 100 mg by mouth twice daily. Active carvedilol (Coreg) 6.25 mg tablet Take 6.25 mg by mouth twice daily. 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 Comments No Sex and Gender Information Value Date Recorded Sex Assigned at Not on file Legal Sex Female 12:39 PM EDT Gender Identity Not on file Sexual Orientation Not on file Last Filed Vital Signs Vital Sign Reading Time Taken Comments Blood Pressure 118/80 04/26/2023 12:13 PM EDT Pulse 80 04/26/2023 12:13 PM EDT Temperature 36.1 C (97 F) 04/26/2023 10:23 AM EDT Respiratory Rate 18 04/26/2023 12:13 PM EDT Oxygen Saturation 99% 04/26/2023 12:13 PM EDT Inhaled Oxygen Concentration - - Weight 69.4 kg (153 lb) 04/26/2023 10:23 AM EDT Height 165.1 cm (5' 5 ) 04/26/2023 10:23 AM EDT Body Mass Index 25.46 04/26/2023 10:23 AM EDT Plan of Treatment Health Maintenance Due Date Last Done Comments Bone Density Scan 1950 CT Colonography 1950 Colonoscopy 1950 Colorectal Cancer Screening 1950 FIT-DNA 1950 FIT 1950 FOBT 1950 Lipid Panel 1950 Sigmoidoscopy 1950 Hepatitis C Screening 02/19/1968 Medicare Annual Wellness (AWV) 09/05/1999 Zoster Vaccines (1 of 2) 02/19/2000 DTaP/Tdap/Td Vaccines (2 - T d or Tdap) 10/15/2019 10/15/2009 Depression Screening 09/05/2024 COVID-19 Vaccine (4 - 2024-2 6 season) 2025 07/23/2021, 01/12/2021, 12/22/2020 Influenza Vaccine (#1) 2025 Pneumococcal Vaccine: 50+ Years Completed 11/18/2016, 11/18/2016, 03/12/2016 HIB Vaccines Aged Out No longer eligi [...] on patient's age to complete this topic Rotavirus Vaccines Aged Out No longer eligible based on patient's age to complete this topic Insurance MEDICARE PART A AND B [employer] Care Teams Dental Assistant Medical Assistant Relationship Specialty Start Date End Date Alison Christianson MD [address] [place] [address] PCP - General Spray Machine Loader 02/11/23
--- OUTSIDE RECORDS SUMMARY | 2025-05-21 12:01 | XMS_ITS | Encounter Summary ---
Author Organization [facility] Address [address] [place] [address] Care Team Providers Care Yeast Maker Name Role Phone Alison Christianson Primary Care Provider Encounter Details Date Type Department Care Team (Late Contact Info) Description 02/16/2024 Orders Only [facility] Department of Neurology [address] [place] [address] German Perez MD Social History Tobacco Use Types Packs/Day Years Used Date Smoking Tobacco: Former Cigarettes Smokeless Tobacco: Never Alcohol Use Standard Drinks/Week Comments Not Currently 0 (1 standard drink = 0.6 oz pur e alcohol) sober 28 [facility] Vital Sign Answer Date Recorded Within the past 12 months, y ou worried that your food would run out before you got the money to buy more. Never true 06/29/20 23 Within the past 12 months, t he food you bought just didn't last and you didn't have money to get more. Never true 06/29/2023 Comments No Sex and Gender Information Value Date Recorded Sex Assigned at Not on file Legal Sex Female 11:35 AM EST Gender Identity Not on file Sexual Orientation Not on file COVID-19 Exposure Response Date Recorded In the last 10 days, have yo u been in contact with someone who was confirmed or suspected to have Coronavirus/COVID-19? No / Unsure 02/06/2024 11:02 AM EDT documented as of this encounter Plan of Treatment Upcoming Encounters Date Type Department Care Team (Late Contact Info) Description 08/21/2025 2:00 PM EST Office Visit [facility] Department of Neurology [address] [phone] Kostas Torres MD [address] [place], [place] documented as of this encounter Visit Diagnoses Not on filedocumented in this encounter Care Teams Yeast Maker Relationship Specialty Start Date End Date Alison Christianson [address] [place] [address] PCP - General Internal Medicine 06/20/23 documented as of this encounter
--- OUTSIDE RECORDS SUMMARY | 2025-05-21 12:01 | XMS_ITS | Encounter Summary ---
Author Organization [facility] Address [address] [place] [address] Care Team Providers Care Lead Web Developer Name Role Phone Alison Christianson Primary Care Provider [phone] Encounter Details Date Type Department Care Team ([facility] st Contact Info) Description 04/28/2025 Results Follow-Up [facility] Department of Neurology [address] [place] [address] Kostas Torres MD [address] [place] [address] Dysautonomia, Autoimmune/Paraneopl astic Evaluation, Serum Social History Tobacco Use Types Packs/Day Years Used Date Smoking Tobacco: Former Cigarettes Passive Smoke Exposure: Past Smokeless Tobacco: Never Alcohol Use Standard Drinks/Week Comments Not Currently 0 (1 standard drink = 0.6 oz pur e alcohol) sober 28 [facility] Utilities Answer Date Recorded In the past 12 months has [employer], gas, oil, or water [employer] threatened to shut off services in your [...] any time in the past 12 m onths, were you homeless or living in a care home (including now)? No 03/28/2024 Comments No [...] suspected to have Coronavirus/COVID-19? No / Unsure 04/05/2025 10:03 AM EDT documented as of this encounter Plan of Treatment Upcoming Encounters Date Type Department Care Team (Late st Contact Info) Description 08/21/2025 2:00 PM EST Office Visit [facility] Department of Neurology [address] [place] [address] Kostas Torres MD [address] [place], [place] documented as of this encounter Visit Diagnoses Not on filedocumented in this encounter Care Teams Lead Web Developer Relationship Specialty Start Date End Date Alison Christianson [facility] [place] [address] PCP - General Internal Medicine 06/20/23 documented as of this encounter
--- OUTSIDE RECORDS SUMMARY | 2025-05-21 12:01 | XMS_ITS | Patient Health Record ---
Author Organization [facility] Address [address] [facility] [address] [place] [address] Care Team Providers Care Practical Nursing Teacher Name Role Phone RANDY TOVAR Primary Care Provider Unavailab Margaret Vu Unavailable [phone] Allergies Allergen (clinical drug ingredient) Drug/Non Drug [...] 75MG ER 1 ORAL daily; Du ration: [facility] 08/11/2012 Active Vitamin D3 1000 IU ORAL daily; Duration: [facility] 2011 Active Calcium-D 600MG 1 ORAL twice daily; Duration: - [facility] 08/11/2012 Active Aspirin EC 81MG 1 ORAL daily; Durati on: - [facility] 05/25/2013 Active Bactrim DS 800-160 MG 1 tablet Orally TW ICE A DAY; Duration: 7 days 07/02/2016 Active Simvastatin 40MG 1 ORAL daily; Durati on: - [facility] 08/11/2012 Active Sanctura 60MG XR 1 ORAL daily; Durati on: [facility] 08/11/2012 Active Multivitamins 1 ORAL daily; Durati on: [facility] 08/11/2012 Active Metoprolol Succinate 50MG 1 ORAL daily; Duration: [address] [facility] 08/11/2012 Active Problems Problem Type SNOMED Code ICD Code Onset Dates Problem Status W/U Status Risk Notes Problem Incomplete uterovaginal prolapse (098367198) Incomplete uterovaginal prolapse (N81.2) Active confirmed Problem Herniation of rectum into vagina (210078689) Rectocele (N81.6) Active confirmed Problem Cystocele (599467280) Cystocele, unspecified (N81.10) Active confirmed Problem Hyperlipidemia (19534206) Other and unspecified hyperlipidemia (272.4) Active confirmed Major Problem Takotsubo syndrome (196961720) Takotsubo syndrome (429.83) Active confirmed Major Problem Prolapse of vaginal castillo without uterine prolapse (367591420) Prolapse of vaginal castillo without mention of uterine prolapse (618.0) Active confirmed Major Problem Midline cystocele (622913173) Cystocele without mention of uterine prolapse, midline (618.01) Active confirmed Diag Problem Herniation of rectum into vagina (516391174) Rectocele without mention of uterine prolapse (618.04) Active confirmed Diag Problem Uterine prolapse without vaginal wall prolapse (45484962) Uterine prolapse without mention of vaginal wall prolapse (618.1) Active confirmed Diag Problem Menopausal symptom (43928079) Symptomatic menopausal or female climacteric states (627.2) Active confirmed Major Problem Osteoporosis (23291983) Unspecified osteoporosis (733.00) Active confirmed Diag Problem Disorder of bone and articular cartilage (disorder) (216155536) Disorder of bone and cartilage, unspecified (733.90) Active confirmed Diag Problem Screening for malignant neoplasm of cervix (976284746) Screening for malignant neoplasm of the cervix (V76.2) Active confirmed Major Problem Screening for malignant neoplasm of colon (751163298) Special screening for malignant neoplasms, colon (V76.51) Active confirmed Major Problem Disorder of urinary bladder (03950758) Other specified disorders of bladder (596.89) Active confirmed Major Plan Of Treatment Pending Test Test Name Order Date URINE CULTURE 07/02/2016 COMPLETE URINALYSIS 06/29/2016 Insurance Providers Payer Name Payer Address Payer Phone Subscriber Number Group Number Insured Name Patient Relationship to Insured Coverage Start Date Coverage End Date MEDICARE [address] [place] [id number] CHAUNCEY QUEZADA Self - patient is the insured [email or web address] [address] [place] [address] [id number] CHAUNCEY QUEZADA Self - patient is [...]
== END 2025-05-21 10:28 | disposition home or self-care (01) ==
LOC: HO.HMCC 09:29
PROVIDERS: PCP Internal Medicine; Visit Provider Internal Medicine
DX: Z00.00 Encounter for general adult medical examination without abnormal findings (principal); E78.5 Hyperlipidemia, unspecified; I10 Essential (primary) hypertension; M81.0 Age-related osteoporosis without current pathological fracture; I95.1 Orthostatic hypotension

== ENCOUNTER → 2025-05-21 09:28 | Outpatient (BNVA) | payer MEDICARE, SELFPAY | PROVIDERS: PCP Internal Medicine; Visit Provider Internal Medicine | DX: Z00.00 Encounter for general adult medical examination without abnormal findings (principal); E78.5 Hyperlipidemia, unspecified; I10 Essential (primary) hypertension; M81.0 Age-related osteoporosis without current pathological fracture; I95.1 Orthostatic hypotension | CPT/HCPCS: 96127 ==

== ENCOUNTER 2025-05-22 06:05 | Outpatient (REF) | payer MEDICARE, SELFPAY ==
[2025-05-22 10:08] LABS: Appearance Urine Clear; Glucose Urine UA Negative (Negative); PH 5.5 (5.0-9.0); Specific Gravity - Urine 1.015 (1.005-1.025); UMIC TRIGGER UA YES
[2025-05-22 10:22] LABS: MANUAL DIFF FLAG NO
[2025-05-22 10:39] LABS: Hematocrit 40.2 % (37.0-47.0); Hemoglobin 12.9 g/dl (12.0-16.0); Imm Gran Abs Auto 0.01 X10*3/uL (0.00-0.03); Imm Gran Pct Auto 0.2 % (0.0-0.4); Lymphocytes Absolute Auto 2.7 X10*3/uL (1.2-4.9); Mean Corpuscular HGB Conc 32.1 g/dl (31.0-35.0); Mean Corpuscular Hemoglobin 31.9 pg (27.0-33.0); Mean Corpuscular Volume 99.5 fL (80.0-98.0); NRBC Abs Auto 0.000 X10*3/uL (0.0-0.012); NRBC Pct Auto 0.0 /100WBC (0.0-0.2); Platelet Count 194 X10*3/uL (160-400); Red Blood Count 4.04 X10*6/uL (4.20-5.50); White Blood Count 5.3 X10*3/uL (4.8-10.8)
[2025-05-22 10:57] LABS: Alanine Aminotransferase 30 U/L (0-31); Albumin Level 4.3 g/dL (3.5-5.0); Alkaline Phosphatase 46 U/L (39-117); Anion Gap 9 (12-20); Aspartate Amino Transferase 27 U/L (5-31); Blood Urea Nitrogen 19 mg/dL (9-16); Calcium 9.3 mg/dL (8.4-10.2); Carbon Dioxide 29 mmol/L (22-29); Chloride 108 mmol/L (96-108); Cholesterol 172 mg/dL (<200); Estimated Glomerular Filt Rate > 60; HDL Cholesterol 61 mg/dL (>40); Potassium 4.4 mmol/L (3.3-5.1); Sodium 142 mmol/L (135-145); Total Protein 6.7 g/dL (6.5-8.0); Triglycerides 99 mg/dL (<150)
== END 2025-05-22 06:06 | disposition home or self-care (01) ==
LOC: HO.HMGCLDS 06:05
PROVIDERS: PCP Internal Medicine; Visit Provider Internal Medicine
DX: Z00.00 Encounter for general adult medical examination without abnormal findings (principal); I10 Essential (primary) hypertension; I95.1 Orthostatic hypotension; E78.5 Hyperlipidemia, unspecified; M81.0 Age-related osteoporosis without current pathological fracture
CPT/HCPCS: 36415; 80053; 80061; 81001; 82306; 84443; 85025